=== PATIENT | female | born 1950 | race Caucasian/White ===

== ENCOUNTER 2016-09-26 22:15 | Inpatient (IN) | payer MEDICARE, MEDICAID ==
[2016-09-26] MEDS ORDERED: Sodium Chloride 0.9% 2,000 ML IV ONE ×2 (22:40→23:44)
--- NOTE | 2016-09-26 22:47 | ED Physician Chart ---
Chief Complaint/HPI - Patient Information Date Seen:: 09/26/16 Time Seen:: 22:30 Chief Complaint:: fever History of Present Illness:: Patient had a fever at her fdc facility of 99.3 before transfer by the paramedics. Patient was being transported to [facility] blood asian studies program chair diverted here because of patient's heart rate was about 140. Allergies:: Allergies Allergy/AdvReac Type Severity Reaction Status Date / Time No Known Allergies Allergy Verified 09/26/16 22:38 Historian:: EMS, Medical Records Review:: Transfer documents Reviewed Review of Systems - Review of Systems General/Constitutional: Fever Skin: Skin lesions Head: No headache Eyes: No loss of vision ENT: No earache Neck: No neck pain Cardio Vascular: No chest pain Pulmonary: SOB GI: No nausea, No vomiting Musculoskeletal: No bone or joint pain, No muscle pain Endocrine: No polyuria Psychiatric: Prior psych history Hematopoietic: No bruising Allergic/Immuno: No urticaria Neurological: No syncope Past Medical History - Past Medical History Past Medical History: Dementia, Other (status post cerebrovascular accident; atherosclerotic heart disease; psychosis; anxiety; seizures;) Family History: Other (not available) Social History: Care Facility Surgical History: PEG/GTube Psychiatricy History: Dementia Medication: Reviewed Family Medical History - Family Member Mother History Unknown: Yes Physical Exam - Physical Examination Other Gen/Cons comments:: Chronically ill-appearing; nonverbal; appears in mild distress Head: Atraumatic Eyes: Lids, conjuctiva normal Other Skin comments:: Both feet bandaged ENMT: External ears, nose nl Other ENMT comments:: Edentulous Other Neck comments:: Neck is stiff Respiratory: Clear to Auscultation, No Wheeze/Rhonchi/Rales Cardio Vascular: RRR, No murmur, gallop, rubs Other Cardio Vascular comments:: Heart sounds are faint; there is a regular rapid rhythm GI: No organomegaly, No hernia, Normal BS's, Nondistended, No mass/bruits Other GI comments:: diffuse mild tenderness without guarding : No CVA tenderness Other Extremities comments:: Feet bandaged Labs/Radiology/EKG Results - Lab Results Comments:: Laboratory Results - last 24 hr 09/26/16 09/26/16 09/26/16 22:35 22:35 22:35 WBC 28.4 H* D RBC 5.01 Hgb 14.2 Hct 42.9 MCV 85.6 MCH 28.3 MCHC Differential 33.1 RDW 14.5 Plt Count 250 MPV 11.3 Band Neutrophils % 3 Neutrophils (Manual) 78 Lymphocytes 16 L Monocytes 3 Platelet Estimate ADEQUATE Sodium 145 Potassium 5.2 H Chloride 112 H Carbon Dioxide 23.5 Anion Gap 14.7 BUN 92 H* Creatinine 1.8 H Est GFR ( Amer) 36.1 Est GFR (Non-Af Amer) 29.8 BUN/Creatinine Ratio 51.1 Glucose 168 H Whole Bld Lactic Acid 1.79 Calcium 10.0 Lipase Urine Source Urine Color Urine Clarity Urine pH Ur Specific [place] Urine Protein Urine Glucose (UA) Urine Ketones Urine Blood Urine Nitrate Urine Bilirubin Urine Ictotest Urine Urobilinogen Ur Leukocyte Esterase Urine RBC Urine WBC Ur Epithelial Cells Urine Bacteria Ur Oval Fat Bodies 09/26/16 09/26/16 22:35 23:00 WBC RBC Hgb Hct MCV MCH MCHC Differential RDW Plt Count MPV Band Neutrophils % Neutrophils (Manual) Lymphocytes Monocytes Platelet Estimate Sodium Potassium Chloride Carbon Dioxide Anion Gap BUN Creatinine Est GFR ( Amer) Est GFR (Non-Af Amer) BUN/Creatinine Ratio Glucose Whole Bld Lactic Acid Calcium Lipase 17 Urine Source CATH Urine Color BROWN Urine Clarity CLOUDY H Urine pH 8.5 Ur Specific [place] 1.010 Urine Protein >=300 Urine Glucose (UA) NEGATIVE Urine Ketones NEGATIVE Urine Blood LARGE H Urine Nitrate POSITIVE H Urine Bilirubin MODERATE H Urine Ictotest NEGATIVE Urine Urobilinogen 1.0 Ur Leukocyte Esterase LARGE H Urine RBC 25-50 H Urine WBC >100 H Ur Epithelial Cells FEW Urine Bacteria MANY Ur Oval Fat Bodies Assessment - Assessment General Assessment: The patient is severely dehydrated and needs lots of fluids. She also has a urinary tract infection for which she will receive Rocephin. One half our critical care time ED Septic Shock - . Is Septic Shock (SBP<90, OR Lactate>4 mmol\L) present?: No Reassessment (Disposition) - Reassessment Reassessment Condition:: Improved - Diagnosis Diagnosis:: sepsis; urinary tract infection; dementia; dehydration - Patient Disposition Transport Method:: BLS Spoke to:: Juvenal Montgomery Admitting Medical Physician:: Juvenal Montgomery Condition at Disposition:: Stable, Improved
[2016-09-26 22:56] LABS: HEMATOCRIT 42.9 % (35.0-45.0); HEMOGLOBIN 14.2 gm/dL (11.7-16.1); MEAN CELL VOLUME 85.6 fl (81-100); MEAN CORPUSCULAR HEMOGLOBIN 28.3 pg (27.0-31.0); MEAN CORPUSCULAR HGB CONC 33.1 pg (28.0-36.0); MEAN PLATELET VOLUME 11.3 fl; PLATELET COUNT 250 Th/cmm (150-400); RED BLOOD COUNT 5.01 Mil/cmm (3.80-5.20); RED CELL DISTRIBUTION WIDTH 14.5 % (11.5-20.0)
[2016-09-26 23:00] LABS: WHITE BLOOD COUNT 28.4 Th/cmm (4.8-10.8)
[2016-09-26 23:05] LABS: ANION GAP 14.7 (7.0-16.0); BUN/CREATININE RATIO 51.1; CARBON DIOXIDE 23.5 mEq/L (21.0-31.0); CREATININE - SERUM 1.8 mg/dL (0.6-1.2); POTASSIUM SERUM 5.2 mEq/L (3.5-5.1)
[2016-09-26 23:18] LABS: BAND NEUTROPHILE 3 % (0-10); NEUTROPHILS 78 % (40-80); PLATELET ESTIMATE ADEQUATE (NORMAL); TOTAL CELLS COUNTED 100
[2016-09-26 23:24] LABS: URINE BILIRUBIN MODERATE (NEGATIVE); URINE BLOOD LARGE (NEGATIVE); URINE GLUCOSE (UA) NEGATIVE (NEGATIVE); URINE KETONE NEGATIVE (NEGATIVE); URINE PH 8.5 (4.6 - 8.0); URINE PROTEIN >=300 mg/dL (NEGATIVE)
[2016-09-26 23:27] LABS: URINE COLOR BROWN
[2016-09-26 23:32] LABS: URINE BACTERIA MANY /hpf (NONE SEEN); URINE EPITHELIAL CELLS FEW /lpf (FEW); URINE RBC 25-50 /hpf (0-5); URINE WBC >100 /hpf (0-5)
[2016-09-26] MEDS ORDERED: cefTRIAXone 1 GM in Sodium Chloride 0.9% 50 ML IV ONE (23:46)
[2016-09-27] MEDS ORDERED: Sodium Chloride 0.9% 1,000 ML IV SCH ×2 (02:34→02:54)
[2016-09-27 05:52] LABS: MEAN CELL VOLUME 87.4 fl (81-100); MEAN CORPUSCULAR HEMOGLOBIN 28.4 pg (27.0-31.0); MEAN CORPUSCULAR HGB CONC 32.5 pg (28.0-36.0); MEAN PLATELET VOLUME 11.2 fl; RED BLOOD COUNT 3.91 Mil/cmm (3.80-5.20); RED CELL DISTRIBUTION WIDTH 14.1 % (11.5-20.0)
[2016-09-27 06:09] LABS: ANION GAP 8.9 (7.0-16.0); BUN/CREATININE RATIO 58.3; CALCIUM SERUM 8.5 mg/dL (8.6-10.3); CARBON DIOXIDE 23.2 mEq/L (21.0-31.0); CREATININE - SERUM 1.2 mg/dL (0.6-1.2); POTASSIUM SERUM 4.1 mEq/L (3.5-5.1)
[2016-09-27 06:28] VITALS: BP 110/58
[2016-09-27 07:45] LABS: HEMATOCRIT 34.1 % (35.0-45.0); HEMOGLOBIN 11.1 gm/dL (11.7-16.1); PLATELET COUNT 183 Th/cmm (150-400); WHITE BLOOD COUNT 18.7 Th/cmm (4.8-10.8)
[2016-09-27 08:26] LABS: BAND NEUTROPHILE 2 % (0-10); NEUTROPHILS 85 % (40-80); PLATELET ESTIMATE ADEQUATE (NORMAL); PLATELET MORPHOLOGY NORMAL (NORMAL); TOTAL CELLS COUNTED 100
[2016-09-27] MEDS ORDERED: Aspirin 81mg Chewable Tab GT SCH (09:00)
[2016-09-27] MEDS ORDERED: Non-Formulary Item 1 EA (Amino Acids/Protein Hydrolys [Pro-Stat Sugar Free Liquid] 30 ML) GT SCH (09:00)
--- NOTE | 2016-09-27 09:14 | Diagnostic Imaging Report ---
CHEST X-RAY: AP view INDICATION: Fever COMPARISON: 10/10/2014 FINDINGS: Right mid lung zone subsegmental atelectasis versus scarring is noted. No focal consolidation or effusions. Chronic lung changes are noted. Heart size is normal. Osseous structures are intact. IMPRESSION: Right mid lung zone subsegmental atelectasis versus scarring. No focal consolidation identified.
[2016-09-27] MEDS: Ascorbic Acid 500 mg/5 mL UDC GT SCH (09:59)
[2016-09-27] MEDS: Levetiracetam 500 mg/5mL 5mL UDC GT SCH ×2 (09:59→16:32)
[2016-09-27] MEDS: Multivitamin w/ Minerals Tab GT SCH (10:00)
[2016-09-27] MEDS ORDERED: Probiotic Screen MC PRN (10:37)
[2016-09-27] MEDS: D5-0.45NS 1,000 ML IV SCH (11:51)
--- NOTE | 2016-09-27 13:15 | Diagnostic Imaging Report ---
Renal ultrasound HISTORY: Acute renal failure. COMPARISON: Renal ultrasound performed on 10/10/2014 Technique: Sonography of the kidneys and urinary bladder was performed in multiple planes. FINDINGS: The right kidney measures 12.0 x 5.3 cm demonstrating moderate hydronephrosis. There is a 2.1 cm sonolucent lesion with internal echoes within the mid to upper pole. The left kidney measures 11.0 x 4.9 cm demonstrating mild to moderate hydronephrosis. No focal lesions identified. Internal echoes are seen within the urinary bladder. The urinary bladder wall measures up to 3 mm. IMPRESSION: Moderate right and mild to moderate left hydronephrosis. Please correlate with clinical findings. CT examination of the abdomen and pelvis with provide additional detail and assessment. 2.1 cm sonolucent lesion of the right kidney likely a cyst. Internal echoes may represent hemorrhagic or proteinaceous components. Internal echoes within the urinary bladder which may represent debris or clot. Please correlate with clinical findings.
[2016-09-27] MEDS: Morphine Sulfate 2 mg/mL 1mL Syr IVP PRN (14:30)
--- NOTE | 2016-09-27 15:38 | History & Physical ---
ADMIT DATE: 09/27/2016 CHIEF COMPLAINT: Fever and tachycardia. HISTORY OF PRESENT ILLNESS: This is a 66-year-old female who recently diagnosed with the UTI at nursing facility and started developing high-grade fever in spite of IV antibiotic and also noted to have a very fast heart rate, 130-140s range, so the patient was transferred to Emergency Room. The patient was evaluated in the Emergency Room and diagnosed with the sepsis, complicated UTI and subsequently admitted to the hospital for further treatments. The patient has underlying advanced dementia, unable to communicate well. Most of the history obtained by reviewing the available medical records and discussion with nursing staff. PAST MEDICAL HISTORY: Advanced dementia, seizure disorders, old CVA with late affect, recent history of foot osteomyelitis, dysphagia and tube feeding and psychiatric disorders. PAST SURGICAL HISTORY: G tube placement FAMILY HISTORY: Not available. SOCIAL HISTORY: Lives at nursing facility. No reported prior alcohol, tobacco, street drug use. CURRENT MEDICATIONS: The patient is currently on Tylenol, vitamin C, aspirin, cefepime, Keppra, lorazepam, Namenda, Remeron, probiotic, Zofran and zinc sulfate. ALLERGIES: No known drug allergies. REVIEW OF SYSTEMS: Unobtainable because patient has underlying dementia. PHYSICAL EXAMINATION: VITAL SIGNS: Temperature 97.0, pulse 111, respirations 25, blood pressure ____. GENERAL APPEARANCE: The patient does not seem in acute distress, but seem lethargic. HEART: S1, S2 normal. LUNGS: Clear to auscultation. ABDOMEN: Soft, nontender. No distention. NEUROLOGIC: The patient is alert, but very confused, does not follow commands well. AVAILABLE LABORATORY DATA: WBC 18.7, hemoglobin is 11.1, hematocrit 34.1 and platelet 183. Sodium 150, potassium is 4.1, chloride is 122, BUN 70, creatinine 1.2. Lactic acid upon admission 1.79. Urinalysis is blood large, nitrites positive, bilirubin moderate, leuk esterase large, wbc more than 100. Renal ultrasound, right hydronephrosis noted. Chest x-ray, no acute significant findings noted. ASSESSMENT: 1. Sepsis. 2. Complicated urinary tract infection. 3. Gross hematuria, possibly due to complicated urinary tract infection. 4. Urinary tract infection with right hydronephrosis. 5. Advanced dementia. 6. Old cerebrovascular accident with late effect. 7. Seizure disorder. 8. Psychiatric disorder. 9. Dysphagia and tube feeding. PLAN: The patient admitted to ICU. The patient was given vigorous IV fluid resuscitation. Blood pressure seems okay, still tachycardiac and recent urinalysis and culture send at the longterm, so the patient had multidrug resistant proteus bacteria. The patient was started on meropenem. Case discussed with ID who agreed with the meropenem. Continue IV fluid hydration. Continue tube feeding. We will follow up on the blood cultures, urine cultures, monitor vital signs. IV morphine was given for pain and distress. Discussed patient's condition and plan of care with the nursing staff. The patient's prognosis is guarded. JOB# [id number] COLETTE
--- NOTE | 2016-09-27 16:24 | Consultation ---
Consult Note - Consult Note Service Date: 09/27/16 Referring Physician: Juvenal Montgomery Consult Note: PHYSICIAN Consultation Note: Date of Admission: 09/27/16 Purpose of Consultation: Chief Complaint: Patient MARII BARNHART was admitted to location Intensive Care Unit with SEPSIS. History of Present Illness: 66 Y FEMALE was sent to the ER for febrile episode at the SNF. She was also diagnosed UTI and urine c/s grew ESBL E coli. On initial evlauation her temperature was 101 degree F and WBC count was 28, 400. Because of tachycardia she was admitted to the ICU. SHe was started in cefepime, which was changed to meropenem. US abdomen revealed left sided hydronephrosis. ID consult was called for antibiotic management. Besides this she has developed both foot wounds with surrounding erythema. Past Medical History: Dementia, UTI, CVA, psychosis. Allergies Allergy/AdvReac Type Severity Reaction Status Date / Time No Known Allergies Allergy Verified 09/26/16 22:38 Vital Signs Temp 98.3 F 09/27/16 16:00 Pulse 113 09/27/16 16:00 Resp 19 09/27/16 16:00 BP 102/44 09/27/16 16:00 Pulse Ox 97 09/27/16 16:00 Intake & Output 09/26/16 09/27/16 09/27/16 18:59 06:59 18:59 Intake Total 20 Balance 20 Weight (lbs) 61.099 kg Intake: Other 20 Other: # Voids 2 # Bowel Movements 0 Stool Characteristics Hard [place] Laboratory Results - last 24 hr 09/27/16 09/27/16 05:27 05:27 WBC 18.7 H D RBC 3.91 Hgb 11.1 L D Hct 34.1 L D MCV 87.4 MCH 28.4 MCHC Differential 32.5 RDW 14.1 Plt Count 183 D MPV 11.2 Band Neutrophils % 2 Neutrophils (Manual) 85 H Lymphocytes 8 L Monocytes 5 Platelet Estimate ADEQUATE Platelet Morphology NORMAL RBC Morph Micro Appear NORMAL Sodium 150 H Potassium 4.1 Chloride 122 H Carbon Dioxide 23.2 Anion Gap 8.9 BUN 70 H Creatinine 1.2 Est GFR ( Amer) 57.6 Est GFR (Non-Af Amer) 47.6 BUN/Creatinine Ratio 58.3 Glucose 125 H Calcium 8.5 L Home Medication Medication Instructions Recorded Type Ascorbic Acid [Vitamin C] 500 mg GT DAILY 10/09/14 History Aspirin EC [Ecotrin] 81 mg GT DAILY 10/09/14 History Amino Acids/Protein Hydrolys 30 ml GT DAILY 09/27/16 History [Pro-Stat Sugar Free 887 ml] Levetiracetam [Keppra] 500 mg GT BID 09/27/16 History Lorazepam [Ativan] 1 mg GT BID PRN 09/27/16 History Memantine HCl [Namenda] 5 mg GT DAILY 09/27/16 History Mirtazapine 45 mg GT HS 09/27/16 History Multivit &Minerals/Ferrous Fum 5 ml PO DAILY 09/27/16 History [Multivitamin Liquid] Zinc Sulfate [Zinc Sulfate 111 1 tab GT DAILY 09/27/16 History mg-50 mg] Current Medications Generic Name Dose Route Start Last Admin Trade Name Angelitoq PRN Reason Stop Dose Admin Acetaminophen 500 mg 09/27/16 02:39 09/27/16 13:45 Tylenol 650mg/20.3ml Suspension GT 11/26/16 02:38 500 mg Q4H PRN Administration Fever >101 Ascorbic Acid 500 mg 09/27/16 09:00 09/27/16 09:59 Vitamin C GT 11/26/16 08:59 500 mg DAILY MIGUE Administration Dextrose/Sodium Chloride 1,000 mls @ 70 mls/hr 09/27/16 10:12 09/27/16 11:51 D5-0.45ns IV 11/26/16 10:11 70 mls/hr .[id number] MIGUE Administration Meropenem 1 gm/ Sodium 100 mls @ 100 mls/hr 09/27/16 15:00 Chloride IV 11/26/16 14:59 Q12H MIGUE Lactobacillus Rhamnosus 1 each 09/28/16 09:00 Culturelle PO 11/27/16 08:59 DAILY MIGUE Levetiracetam 500 mg 09/27/16 09:00 09/27/16 09:59 Keppra GT 11/26/16 08:59 500 mg BID MIGUE Administration Lorazepam 1 mg 09/27/16 02:47 Ativan GT 11/26/16 02:46 BID PRN Anxiety Protocol Memantine 5 mg 09/27/16 09:00 09/27/16 10:00 Namenda GT 11/26/16 08:59 5 mg DAILY MIGUE Administration Mirtazapine 45 mg 09/27/16 21:00 Remeron GT 11/26/16 20:59 HS MIGUE Miscellaneous 1 ea 09/27/16 10:34 Clinical Monitoring 11/26/16 10:33 PRN PRN MERREM RENAL DOSED Miscellaneous 1 ea 09/27/16 10:37 Probiotic Screen 11/26/16 10:36 PRN PRN PROTOCOL Morphine Sulfate 2 mg 09/27/16 14:10 09/27/16 14:30 Morphine IVP 11/26/16 14:09 2 mg Q4HR PRN Administration Severe Pain Ondansetron HCl 4 mg 09/27/16 02:38 Zofran IV 11/26/16 02:44 Q6H PRN Nausea / Vomiting Zinc Sulfate 1 mg 09/27/16 09:00 09/27/16 10:01 Zinc Sulfate GT 11/26/16 08:59 Not Given DAILY MIGUE Review of Systems: A 12 point ROS was reviewed with the pertinent positive and negatives noted in the HPI. Social History Smoking Status Smoker, status unknown Drug Use No Alcohol Use No Physical Exam: General: Comnfortable, no t in distress. HEENT: Head is normocephalic, atraumatic. Oral cavity moist and pink tongue. Eyes no pallor, no icterus. Neck: Supple, no JVD. Cardio: S1 and S2 WNL, no murmur, no gallop. Respiratory: CTAP Abdominal: soft NT ND BS present. Genital/Urinary: Hassan. Extremities: NCCE. left foot deep wound with surrounding erythema. inferomedially of the left fore foot just proximal to the big toe. Right foot multiple ulcers. Neurological: Alert. Assessment: 1. Sepsis. 2. Complicated UTI. ESBL Pos E coli infection. 3. Leukocytosis. 4. Dementia 5. Left sided hydronephrosis. 6. bilateral foot ulcers worse in left. r/o osteomyelitis. Plan: Will continue merpenem. Wound cultures 3 phase bone scan. esr crp Signed, Mehul Diane M.D. [phone]
[2016-09-27] MEDS: Meropenem 1 GM in Sodium Chloride 0.9% 100 ML IV SCH (16:33)
[2016-09-28] MEDS: Meropenem 1 GM in Sodium Chloride 0.9% 100 ML IV SCH ×2 (03:30→15:51)
[2016-09-28] MEDS: D5-0.45NS 1,000 ML IV SCH ×2 (04:45→21:11)
[2016-09-28 07:15] LABS: URINE BILIRUBIN NEGATIVE (NEGATIVE); URINE BLOOD LARGE (NEGATIVE); URINE GLUCOSE (UA) NEGATIVE (NEGATIVE); URINE KETONE NEGATIVE (NEGATIVE); URINE PROTEIN 100 mg/dL (NEGATIVE); URINE UROBILINOGEN 0.2 E.U./dL (0.2 - 1.0)
[2016-09-28 08:50] LABS: URINE COLOR YELLOW; URINE EPITHELIAL CELLS FEW /lpf (FEW); URINE RBC 50-100 /hpf (0-5)
[2016-09-28 08:51] LABS: URINE BACTERIA FEW /hpf (NONE SEEN)
[2016-09-28 08:52] LABS: URINE WBC 25-50 /hpf (0-5)
[2016-09-28] MEDS: Levetiracetam 500 mg/5mL 5mL UDC GT SCH ×2 (09:48→17:25)
[2016-09-28] MEDS: Ascorbic Acid 500 mg/5 mL UDC GT SCH (09:49)
[2016-09-28] MEDS: Multivitamin w/ Minerals Tab GT SCH (09:51)
[2016-09-28] MEDS: Lactobacillus Rhamnosus 10 Billion CFU Capsule PO SCH (09:52)
[2016-09-28] MEDS: Venelex 60gm Tube TP SCH (09:52)
--- NOTE | 2016-09-28 15:03 | General Progress Note ---
Subjective - Review of Systems Service Date: 09/28/16 Subjective: Patient seems more awake afebrile hematuria better Objective - Results Result Diagrams: 09/27/16 05:27 09/27/16 05:27 Recent Labs: Laboratory Last Values WBC 18.7 Th/cmm (4.8-10.8) H D 09/27/16 05:27 RBC 3.91 Mil/cmm (3.80-5.20) 09/27/16 05:27 Hgb 11.1 gm/dL (11.7-16.1) L D 09/27/16 05:27 Hct 34.1 % (35.0-45.0) L D 09/27/16 05:27 MCV 87.4 fl (81-100) 09/27/16 05:27 MCH 28.4 pg (27.0-31.0) 09/27/16 05:27 MCHC Differential 32.5 pg (28.0-36.0) 09/27/16 05:27 RDW 14.1 % (11.5-20.0) 09/27/16 05:27 Plt Count 183 Th/cmm (150-400) D 09/27/16 05:27 MPV 11.2 fl 09/27/16 05:27 Band Neutrophils % 2 % (0-10) 09/27/16 05:27 Neutrophils (Manual) 85 % (40-80) H 09/27/16 05:27 Lymphocytes 8 % (20-50) L 09/27/16 05:27 Monocytes 5 % (2-10) 09/27/16 05:27 Platelet Estimate ADEQUATE (NORMAL) 09/27/16 05:27 Platelet Morphology NORMAL (NORMAL) 09/27/16 05:27 RBC Morph Micro Appear NORMAL (NORMAL) 09/27/16 05:27 Sodium 150 mEq/L (136-145) H 09/27/16 05:27 Potassium 4.1 mEq/L (3.5-5.1) 09/27/16 05:27 Chloride 122 mEq/L (98-107) H 09/27/16 05:27 Carbon Dioxide 23.2 mEq/L (21.0-31.0) 09/27/16 05:27 Anion Gap 8.9 (7.0-16.0) 09/27/16 05:27 BUN 70 mg/dL (7-25) H 09/27/16 05:27 Creatinine 1.2 mg/dL (0.6-1.2) 09/27/16 05:27 Est GFR ( Amer) 57.6 ml/min (>90) 09/27/16 05:27 Est GFR (Non-Af Amer) 47.6 ml/min 09/27/16 05:27 BUN/Creatinine Ratio 58.3 09/27/16 05:27 Glucose 125 mg/dL (70-105) H 09/27/16 05:27 Whole Bld Lactic Acid 1.79 mmol/L (0.60-1.99) 09/26/16 22:35 Calcium 8.5 mg/dL (8.6-10.3) L 09/27/16 05:27 C-Reactive Protein 11.8 mg/dL (0.0-0.9) H 09/28/16 04:50 Lipase 17 U/L (11-82) 09/26/16 22:35 Urine Source [place] 09/28/16 05:30 Urine Color YELLOW 09/28/16 05:30 Urine Clarity SLIGHT CLOUDY (CLEAR) 09/28/16 05:30 Urine pH 6.0 (4.6 - 8.0) 09/28/16 05:30 Ur Specific [place] 1.020 (1.005-1.030) 09/28/16 05:30 Urine Protein 100 mg/dL (NEGATIVE) H 09/28/16 05:30 Urine Glucose (UA) NEGATIVE mg/dL (NEGATIVE) 09/28/16 05:30 Urine Ketones NEGATIVE mg/dL (NEGATIVE) 09/28/16 05:30 Urine Blood LARGE (NEGATIVE) H 09/28/16 05:30 Urine Nitrate NEGATIVE (NEGATIVE) 09/28/16 05:30 Urine Bilirubin NEGATIVE (NEGATIVE) 09/28/16 05:30 Urine Ictotest NEGATIVE (NEGATIVE) 09/26/16 23:00 Urine Urobilinogen 0.2 E.U./dL (0.2 - 1.0) 09/28/16 05:30 Ur Leukocyte Esterase MODERATE (NEGATIVE) H 09/28/16 05:30 Urine RBC 50-100 /hpf (0-5) H 09/28/16 05:30 Urine WBC 25-50 /hpf (0-5) H 09/28/16 05:30 Ur Epithelial Cells FEW /lpf (FEW) 09/28/16 05:30 Urine Bacteria FEW /hpf (NONE SEEN) 09/28/16 05:30 Ur Oval Fat Bodies /hpf (NONE SEEN) 09/26/16 23:00 - Physical Exam Vitals and I&O: Vital Signs Temp 97 F 09/28/16 12:00 Pulse 90 09/28/16 12:00 Resp 15 09/28/16 12:00 BP 105/75 09/28/16 12:00 Pulse Ox 99 09/28/16 12:00 Intake & Output 09/27/16 09/28/16 09/28/16 18:59 06:59 18:59 Intake Total 365 1680 Output Total 1050 800 Balance -685 880 Weight (lbs) 62.369 kg 61.054 kg Intake: Intake, IV Amount 100 1100 D5-0.45NS 1,000 ml @ 70 1000 mls/hr IV .[id number] [facility] Rx #:[id number] Meropenem 1 gm In Sodium 100 100 Chloride 0.9% 100 ml @ 100 mls/hr IV Q12H [facility] Rx #:[id number] Tube Feeding 165 490 Other 100 90 Output: Urine 1050 800 Other: # Bowel Movements 1 0 Stool Characteristics Hard [place] Active Medications: Current Medications Acetaminophen (Tylenol 650mg/20.3ml Suspension) 500 mg GT Q4H PRN PRN Reason: Fever >101 Stop: 11/26/16 02:38 Last Admin: 09/27/16 13:45 Dose: 500 mg Ascorbic Acid (Vitamin C) 500 mg GT DAILY [facility] Stop: 11/26/16 08:59 Last Admin: 09/28/16 09:49 Dose: 500 mg Dextrose/Sodium Chloride (D5-0.45ns) 1,000 mls @ 70 mls/hr IV .[id number] [facility] Stop: 11/26/16 10:11 Last Admin: 09/28/16 04:45 Dose: 70 mls/hr Meropenem 1 gm/ Sodium (Chloride) 100 mls @ 100 mls/hr IV Q12H MIGUE Stop: 11/26/16 14:59 Last Infusion: 09/28/16 04:30 Dose: Infused Lactobacillus Rhamnosus (Culturelle) 1 each PO DAILY [facility] Stop: 11/27/16 08:59 Last Admin: 09/28/16 09:52 Dose: 1 each Levetiracetam (Keppra) 500 mg GT BID MIGUE Stop: 11/26/16 08:59 Last Admin: 09/28/16 09:48 Dose: 500 mg Lorazepam (Ativan) 1 mg GT BID PRN; Protocol PRN Reason: Anxiety Stop: 11/26/16 02:46 Memantine (Namenda) 5 mg GT DAILY MIGUE Stop: 11/26/16 08:59 Last Admin: 09/28/16 09:50 Dose: 5 mg Mirtazapine (Remeron) 45 mg GT HS MIGUE Stop: 11/26/16 20:59 Last Admin: 09/27/16 20:40 Dose: 45 mg Miscellaneous (Clinical Monitoring) 1 ea MC PRN PRN PRN Reason: MERREM RENAL DOSED Stop: 11/26/16 10:33 Miscellaneous (Probiotic Screen) 1 ea MC PRN PRN PRN Reason: PROTOCOL Stop: 11/26/16 10:36 Morphine Sulfate (Morphine) 2 mg IVP Q4HR PRN PRN Reason: Severe Pain Stop: 11/26/16 14:09 Last Admin: 09/27/16 14:30 Dose: 2 mg Ondansetron HCl (Zofran) 4 mg IV Q6H PRN PRN Reason: Nausea / Vomiting Stop: 11/26/16 02:44 Zinc Sulfate (Zinc Sulfate) 220 mg GT DAILY MIGUE Stop: 11/26/16 08:59 Cardiovascular: Regular rate Lungs: Clear to auscultation Abdomen: Soft, no Tender - Procedures Procedures: Procedures Procedure Code Date DRAINAGE OF SKIN ABSCESS 09527 10/09/14 OTHER SKIN & SUBQ I D 86.04 10/09/14 Assessment/Plan - Problem List Patient Problems: All Active Problems Cellulitis, gluteal, right (Acute) L03.317 Combative behavior (Acute 02/10/15) R46.89 - Assessment Assessment: Sepsis Complicated UTI with right hydronephrosis Hematuria better 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 dementia Dysphagia - Plan Plan: Continue Meropenem Monitor hematuria Monitor vitals SCOOTER transfer plan of care discussed with nursing staff Nutritional Asmnt/Malnutr-PDOC - Dietary Evaluation Malnutrition Findings (Please click <Entered> for more info): Nutritional Asmnt/Malnutrition Start: 09/27/16 15: 19 Text: Status: Complete Freq: Document 09/27/16 19:47 JDANH (Rec: 09/27/16 19:58 [facility] [id number]) Nutritional Asmnt/Malnutrition Patient General Information Nutritional Screening Consult Diagnosis Sepsis, complicated UTI Pertinent Medical Hx/Surgical Hx Advanced dementia, seizure disorders, old CVA with late affect, recent hx foot osteomyelitis, dysphagia, tube feeding, psychiatric disorders Subjective Information Nutrition Consult for caleb scale 10 and pressure ulcers received and completed. Pt is a 66-year-old female from [facility] admitted with chief complaint of fever and tachycardia. Tube feeding started today at 20 ml/hr and slowly increasing to goal rate . Pt is tolerating tube feeding well with no residuals . Current Diet Order/ Nutrition Support Fibersource HN at 55 ml/hr continuous = 1584kcals, 71gm protein, 1069ml H2O Patient / S.O Can't verbalize diet edu Pertinent Medications Vitamin C, D5-0.45 ns, Culturelle, Meropenem, Morphine, Zofran, Zinc Sulfate Pertinent Labs (09/27) Na 150H, BUN 70H ( improved) Nutritional Hx/Data Height 1.63 m Height (Calculated Centimeters) 162.6 Current Weight (lbs) 62.369 kg Weight (Calculated Kilograms) 62.4 Weight (Calculated Grams) 45962.0 [place] Body Weight 120 % [place] Body Weight 115 Weight Status Approriate GI Symptoms GI Symptoms None Difficult in: Swallowing Food Allergies No Skin Integrity/Comment: Caleb 8. Right foot, right and left 5th metatarsal head pressure ulcers. Estimated Nutritional Goals BEE in Kcals: Using Current wt Calories/Kcals/Kg Based on current body wt 62.5 kg with consideration of sepsis Kcals Calculated 1788-6113 kcals/day (30-35 kcals/kg) Protein: Using Current wt Protein g/kg: Based on current body wt 62.5 kg with consideration of sepsis Protein Calculated 75-94 gm/day (1.2-1.5 gm/kg) Fluid: ml 1875 ml/kg (30 ml/kg) or per MD/DO Nutritional Problem 1. Problem Problem Increased energy needs related to Etiology increased metabolic demands with physiological stress as evidenced by Signs/Symptoms: dx sepsis. Malnutrition Alert Is there a minimum of two criteria No selected? Query Text:Check all the applicable criteria. A minimum of two criteria are recommended for diagnosis of either severe or non-severe malnutrition. Malnutrition Related to Morbid Obesity Malnutrition related to morbid obesity No Intervention/Recommendation Recommendations by RD Increase Calorie Intake Comments 1. Recommend increase Fibersource HN to goal rate of 65 ml/hr to better meet estimated nutritional needs. Tube feeding to provide 1872 kcals, 84 gm protein, and 1264 ml free water per day. 2. Consider discontinuing zinc sulfate supplementation as tube feeding is adequate to meet mineral needs. Expected Outcomes/Goals Expected Outcomes/Goals Provide pt with 100% of estimated nutritional needs for conservation of lean muscle mass and promote wound healing. Physician Parameters for PEM Normal Weight % 90% - 110% (Normal) Body Mass Index (BMI) 19 - 24 (Normal)
[2016-09-28 15:22] LABS: ANION GAP 10.2 (7.0-16.0); BUN - UREA NITROGEN 40 mg/dL (7-25); CALCIUM SERUM 8.6 mg/dL (8.6-10.3); CARBON DIOXIDE 24.8 mEq/L (21.0-31.0); CHLORIDE 118 mEq/L (98-107); CREATININE - SERUM 0.8 mg/dL (0.6-1.2); GLUCOSE 142 mg/dL (70-105); SODIUM SERUM 149 mEq/L (136-145)
--- NOTE | 2016-09-28 22:35 | Admit Criteria Form ---
Admit Criteria Forms - Admit Criteria Diagnosis: URINARY COMPLICATIONS Clinical Indications for Inpatient Care (Place 'X' for any and all applicable criteria): Ongoing inpatient care may be indicated for urinary complications with ANY ONE of the following: [X ]I. Urinary tract infection requiring inpatient care as indicated by ANY ONE of the following(8)(19)(20): [ ]a) Severe symptoms (eg, high fever, severe pain) [X ]b) Vomiting or dehydration requiring ongoing inpatient care [X ]c) IV antibiotic needs that cannot be managed at lower level of care [X ]d) Hemodynamic instability [ ]e) Obstruction of collecting system by stone or tumor [ ]II. Urinary retention requiring drainage or surgery (3)(4)(5)(17)(18) [ ]III. Renal failure (Use Renal Failure Criteria for further information.) [ ]IV. Oliguria(30) [ ]V. Post obstructive diuresis requiring close monitoring of urine output and intravenous compensation for excessive fluid losses(33) Extended stay beyond goal length of stay for primary condition may be needed until ALL of the following are present(3)(4)(5)(8): [ ]a) Renal function (creatinine) at baseline, or daily decreases in creatinine consistent with renal function return [ ]b) Voiding adequately or with urinary catheter or percutaneous suprapubic tube and management regimen in place that is performable at lower level of care. [ ]c) Urine output adequate [ ]d) Fever absent or resolving [ ]e) Infection absent or treatable at next level of care The original [employer] content created by [employer] has been revised. The portions of the content which have been revised are identified through the use of italic text or in bold, and [facility] has neither reviewed nor approved the modified material. All other unmodified content is copyright [facility] [employer] Please see references footnoted in the original [facility] [employer] edition 2016 Admit Criteria Met?: Yes
[2016-09-28] MEDS: Morphine Sulfate 2 mg/mL 1mL Syr IVP PRN (23:37)
[2016-09-29] MEDS: Meropenem 1 GM in Sodium Chloride 0.9% 100 ML IV SCH ×2 (02:07→16:30)
[2016-09-29] MEDS: Morphine Sulfate 2 mg/mL 1mL Syr IVP PRN (05:18)
[2016-09-29 05:42] LABS: % BASOPHILS 0.3 % (0.0-2.0); % EOSINOPHILS 4.7 % (0.0-5.0); % LYMPHOCYTES 17.1 % (20.0-50.0); % NEUTROPHILS 68.9 % (40.0-80.0); MEAN CORPUSCULAR HEMOGLOBIN 28.5 pg (27.0-31.0); MEAN CORPUSCULAR HGB CONC 32.8 pg (28.0-36.0); MEAN PLATELET VOLUME 10.5 fl; NEUTROPHILE ABSOLUTE 7.2 Th/cmm (1.8-8.0); PLATELET COUNT 154 Th/cmm (150-400); RED BLOOD COUNT 3.52 Mil/cmm (3.80-5.20)
[2016-09-29 05:54] LABS: ANION GAP 7.4 (7.0-16.0); BUN - UREA NITROGEN 24 mg/dL (7-25); CALCIUM SERUM 8.7 mg/dL (8.6-10.3); CARBON DIOXIDE 26.6 mEq/L (21.0-31.0); CHLORIDE 117 mEq/L (98-107); CREATININE - SERUM 0.6 mg/dL (0.6-1.2); GLUCOSE 99 mg/dL (70-105); SODIUM SERUM 147 mEq/L (136-145)
[2016-09-29 06:18] LABS: HEMATOCRIT 30.6 % (35.0-45.0); WHITE BLOOD COUNT 10.4 Th/cmm (4.8-10.8)
[2016-09-29] MEDS: Levetiracetam 500 mg/5mL 5mL UDC GT SCH ×2 (08:46→16:31)
[2016-09-29] MEDS: Multivitamin w/ Minerals Tab GT SCH (08:47)
[2016-09-29] MEDS: Ascorbic Acid 500 mg/5 mL UDC GT SCH (08:47)
[2016-09-29] MEDS: Venelex 60gm Tube TP SCH (08:47)
[2016-09-29] MEDS: Lactobacillus Rhamnosus 10 Billion CFU Capsule PO SCH (08:47)
[2016-09-29] MEDS: D5-0.45NS 1,000 ML IV SCH (08:48)
--- NOTE | 2016-09-29 13:47 | General Progress Note ---
Subjective - Review of Systems Service Date: 09/29/16 Subjective: Patient doing better WBC better afebrile Objective - Results Result Diagrams: 09/29/16 05:00 09/29/16 05:00 Recent Labs: Laboratory Last Values WBC 10.4 Th/cmm (4.8-10.8) D 09/29/16 05:00 RBC 3.52 Mil/cmm (3.80-5.20) L 09/29/16 05:00 Hgb 10.0 gm/dL (11.7-16.1) L 09/29/16 05:00 Hct 30.6 % (35.0-45.0) L D 09/29/16 05:00 MCV 87.0 fl (81-100) 09/29/16 05:00 MCH 28.5 pg (27.0-31.0) 09/29/16 05:00 MCHC Differential 32.8 pg (28.0-36.0) 09/29/16 05:00 RDW 14.0 % (11.5-20.0) 09/29/16 05:00 Plt Count 154 Th/cmm (150-400) 09/29/16 05:00 MPV 10.5 fl 09/29/16 05:00 Neutrophils % 68.9 % (40.0-80.0) 09/29/16 05:00 Band Neutrophils % 2 % (0-10) 09/27/16 05:27 Lymphocytes % 17.1 % (20.0-50.0) L 09/29/16 05:00 Monocytes % 9.0 % (2.0-10.0) 09/29/16 05:00 Eosinophils % 4.7 % (0.0-5.0) 09/29/16 05:00 Basophils % 0.3 % (0.0-2.0) 09/29/16 05:00 Neutrophils (Manual) 85 % (40-80) H 09/27/16 05:27 Lymphocytes 8 % (20-50) L 09/27/16 05:27 Monocytes 5 % (2-10) 09/27/16 05:27 Platelet Estimate ADEQUATE (NORMAL) 09/27/16 05:27 Platelet Morphology NORMAL (NORMAL) 09/27/16 05:27 RBC Morph Micro Appear NORMAL (NORMAL) 09/27/16 05:27 Sodium 147 mEq/L (136-145) H 09/29/16 05:00 Potassium 4.0 mEq/L (3.5-5.1) 09/29/16 05:00 Chloride 117 mEq/L (98-107) H 09/29/16 05:00 Carbon Dioxide 26.6 mEq/L (21.0-31.0) 09/29/16 05:00 Anion Gap 7.4 (7.0-16.0) 09/29/16 05:00 BUN 24 mg/dL (7-25) 09/29/16 05:00 Creatinine 0.6 mg/dL (0.6-1.2) 09/29/16 05:00 Est GFR ( Amer) > 60.0 ml/min (>90) 09/29/16 05:00 Est GFR (Non-Af Amer) > 60.0 ml/min 09/29/16 05:00 BUN/Creatinine Ratio 40.0 09/29/16 05:00 Glucose 99 mg/dL (70-105) 09/29/16 05:00 Whole Bld Lactic Acid 1.79 mmol/L (0.60-1.99) 09/26/16 22:35 Calcium 8.7 mg/dL (8.6-10.3) 09/29/16 05:00 C-Reactive Protein 11.8 mg/dL (0.0-0.9) H 09/28/16 04:50 Lipase 17 U/L (11-82) 09/26/16 22:35 Urine Source AMAYA PORT 09/28/16 05:30 Urine Color YELLOW 09/28/16 05:30 Urine Clarity SLIGHT CLOUDY (CLEAR) 09/28/16 05:30 Urine pH 6.0 (4.6 - 8.0) 09/28/16 05:30 Ur Specific [place] 1.020 (1.005-1.030) 09/28/16 05:30 Urine Protein 100 mg/dL (NEGATIVE) H 09/28/16 05:30 Urine Glucose (UA) NEGATIVE mg/dL (NEGATIVE) 09/28/16 05:30 Urine Ketones NEGATIVE mg/dL (NEGATIVE) 09/28/16 05:30 Urine Blood LARGE (NEGATIVE) H 09/28/16 05:30 Urine Nitrate NEGATIVE (NEGATIVE) 09/28/16 05:30 Urine Bilirubin NEGATIVE (NEGATIVE) 09/28/16 05:30 Urine Ictotest NEGATIVE (NEGATIVE) 09/26/16 23:00 Urine Urobilinogen 0.2 E.U./dL (0.2 - 1.0) 09/28/16 05:30 Ur Leukocyte Esterase MODERATE (NEGATIVE) H 09/28/16 05:30 Urine RBC 50-100 /hpf (0-5) H 09/28/16 05:30 Urine WBC 25-50 /hpf (0-5) H 09/28/16 05:30 Ur Epithelial Cells FEW /lpf (FEW) 09/28/16 05:30 Urine Bacteria FEW /hpf (NONE SEEN) 09/28/16 05:30 Ur Oval Fat Bodies /hpf (NONE SEEN) 09/26/16 23:00 - Physical Exam Vitals and I&O: Vital Signs Temp 97.3 F 09/29/16 11:56 Pulse 76 09/29/16 11:56 Resp 18 09/29/16 11:56 BP 112/52 09/29/16 11:56 Pulse Ox 100 09/29/16 11:56 Intake & Output 09/28/16 09/29/16 09/29/16 18:59 06:59 18:59 Intake Total 100 1225 813.167 Balance 100 1225 813.167 Weight (lbs) 61.371 kg Intake: Intake, IV Amount 100 1000 813.167 D5-0.45NS 1,000 ml @ 70 1000 813.167 mls/hr IV .[id number] [facility] Rx #:[id number] Meropenem 1 gm In Sodium 100 Chloride 0.9% 100 ml @ 100 mls/hr IV Q12H [facility] Rx #:[id number] Tube Feeding 225 Other: # Voids 2 # Bowel Movements 1 Active Medications: Current Medications Acetaminophen (Tylenol 650mg/20.3ml Suspension) 500 mg GT Q4H PRN PRN Reason: Fever >101 Stop: 11/26/16 02:38 Last Admin: 09/27/16 13:45 Dose: 500 mg Ascorbic Acid (Vitamin C) 500 mg GT DAILY [facility] Stop: 11/26/16 08:59 Last Admin: 09/29/16 08:47 Dose: 500 mg Dextrose/Sodium Chloride (D5-0.45ns) 1,000 mls @ 70 mls/hr IV .[id number] [facility] Stop: 11/26/16 10:11 Last Admin: 09/29/16 08:48 Dose: 70 mls/hr Meropenem 1 gm/ Sodium (Chloride) 100 mls @ 100 mls/hr IV Q12H [facility] Stop: 11/26/16 14:59 Last Admin: 09/29/16 02:07 Dose: 100 mls/hr Lactobacillus Rhamnosus (Culturelle) 1 each PO DAILY [facility] Stop: 11/27/16 08:59 Last Admin: 09/29/16 08:47 Dose: 1 each Levetiracetam (Keppra) 500 mg GT BID [facility] Stop: 11/26/16 08:59 Last Admin: 09/29/16 08:46 Dose: 500 mg Lorazepam (Ativan) 1 mg GT BID PRN; Protocol PRN Reason: Anxiety Stop: 11/26/16 02:46 Memantine (Namenda) 5 mg GT DAILY [facility] Stop: 11/26/16 08:59 Last Admin: 09/29/16 08:47 Dose: 5 mg Mirtazapine (Remeron) 45 mg GT HS [facility] Stop: 11/26/16 20:59 Last Admin: 09/28/16 21:06 Dose: 45 mg Miscellaneous (Clinical Monitoring) 1 ea MC PRN PRN PRN Reason: MERREM RENAL DOSED Stop: 11/26/16 10:33 Miscellaneous (Probiotic Screen) 1 ea MC PRN PRN PRN Reason: PROTOCOL Stop: 11/26/16 10:36 Morphine Sulfate (Morphine) 2 mg IVP Q4HR PRN PRN Reason: Severe Pain Stop: 11/26/16 14:09 Last Admin: 09/29/16 05:18 Dose: 2 mg Ondansetron HCl (Zofran) 4 mg IV Q6H PRN PRN Reason: Nausea / Vomiting Stop: 11/26/16 02:44 Zinc Sulfate (Zinc Sulfate) 220 mg GT DAILY [facility] Stop: 11/26/16 08:59 Last Admin: 09/29/16 08:47 Dose: 220 mg Cardiovascular: Regular rate Lungs: Clear to auscultation Abdomen: Soft, no Tender - Procedures Procedures: Procedures Procedure Code Date DRAINAGE OF SKIN ABSCESS 61807 10/09/14 OTHER SKIN & SUBQ I D 86.04 08/16/15 Assessment/Plan - Problem List Patient Problems: All Active Problems Cellulitis, gluteal, right (Acute) L03.317 Combative behavior (Acute 02/10/15) R46.89 - Assessment Assessment: Sepsis improving Complicated UTI with right hydronephrosis Hematuria better 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 dementia Dysphagia - Plan Plan: Continue Meropenem Monitor hematuria Monitor vitals Tube feeding plan of care discussed with nursing staff Nutritional Asmnt/Malnutr-PDOC - Dietary Evaluation Malnutrition Findings (Please click <Entered> for more info): Nutritional Asmnt/Malnutrition Start: 09/27/16 15: 19 Text: Status: Complete Freq: Document 09/27/16 19:47 JDAIA (Rec: 09/27/16 19:58 [facility] [id number]) Nutritional Asmnt/Malnutrition Patient General Information Nutritional Screening Consult Diagnosis Sepsis, complicated UTI Pertinent Medical Hx/Surgical Hx Advanced dementia, seizure disorders, old CVA with late affect, recent hx foot osteomyelitis, dysphagia, tube feeding, psychiatric disorders Subjective Information Nutrition Consult for caleb scale 10 and pressure ulcers received and completed. Pt is a 66-year-old female from [facility] admitted with chief complaint of fever and tachycardia. Tube feeding started today at 20 ml/hr and slowly increasing to goal rate . Pt is tolerating tube feeding well with no residuals . Current Diet Order/ Nutrition Support Fibersource HN at 55 ml/hr continuous = 1584kcals, 71gm protein, 1069ml H2O Patient / S.O Can't verbalize diet edu Pertinent Medications Vitamin C, D5-0.45 ns, Culturelle, Meropenem, Morphine, Zofran, Zinc Sulfate Pertinent Labs (09/27) Na 150H, BUN 70H ( improved) Nutritional Hx/Data Height 1.63 m Height (Calculated Centimeters) 162.6 Current Weight (lbs) 62.369 kg Weight (Calculated Kilograms) 62.4 Weight (Calculated Grams) 80715.0 [place] Body Weight 120 % [place] Body Weight 115 Weight Status Approriate GI Symptoms GI Symptoms None Difficult in: Swallowing Food Allergies No Skin Integrity/Comment: Caleb 8. Right foot, right and left 5th metatarsal head pressure ulcers. Estimated Nutritional Goals BEE in Kcals: Using Current wt Calories/Kcals/Kg Based on current body wt 62.5 kg with consideration of sepsis Kcals Calculated 8357-6759 kcals/day (30-35 kcals/kg) Protein: Using Current wt Protein g/kg: Based on current body wt 62.5 kg with consideration of sepsis Protein Calculated 75-94 gm/day (1.2-1.5 gm/kg) Fluid: ml 1875 ml/kg (30 ml/kg) or per MD/DO Nutritional Problem 1. Problem Problem Increased energy needs related to Etiology increased metabolic demands with physiological stress as evidenced by Signs/Symptoms: dx sepsis. Malnutrition Alert Is there a minimum of two criteria No selected? Query Text:Check all the applicable criteria. A minimum of two criteria are recommended for diagnosis of either severe or non-severe malnutrition. Malnutrition Related to Morbid Obesity Malnutrition related to morbid obesity No Intervention/Recommendation Recommendations by RD Increase Calorie Intake Comments 1. Recommend increase Fibersource HN to goal rate of 65 ml/hr to better meet estimated nutritional needs. Tube feeding to provide 1872 kcals, 84 gm protein, and 1264 ml free water per day. 2. Consider discontinuing zinc sulfate supplementation as tube feeding is adequate to meet mineral needs. Expected Outcomes/Goals Expected Outcomes/Goals Provide pt with 100% of estimated nutritional needs for conservation of lean muscle mass and promote wound healing. Physician Parameters for PEM Normal Weight % 90% - 110% (Normal) Body Mass Index (BMI) 19 - 24 (Normal)
--- NOTE | 2016-09-29 23:58 | Infectious Disease Prog Note ---
Infectious Disease Subjective - Review of Systems Service Date: 09/29/16 Subjective: There is no new change, there is no fever. Infectious Disease Objective - Results Result Diagrams: 09/29/16 05:00 09/29/16 05:00 Recent Labs: Laboratory Last Values WBC 10.4 Th/cmm (4.8-10.8) D 09/29/16 05:00 RBC 3.52 Mil/cmm (3.80-5.20) L 09/29/16 05:00 Hgb 10.0 gm/dL (11.7-16.1) L 09/29/16 05:00 Hct 30.6 % (35.0-45.0) L D 09/29/16 05:00 MCV 87.0 fl (81-100) 09/29/16 05:00 MCH 28.5 pg (27.0-31.0) 09/29/16 05:00 MCHC Differential 32.8 pg (28.0-36.0) 09/29/16 05:00 RDW 14.0 % (11.5-20.0) 09/29/16 05:00 Plt Count 154 Th/cmm (150-400) 09/29/16 05:00 MPV 10.5 fl 09/29/16 05:00 Neutrophils % 68.9 % (40.0-80.0) 09/29/16 05:00 Band Neutrophils % 2 % (0-10) 09/27/16 05:27 Lymphocytes % 17.1 % (20.0-50.0) L 09/29/16 05:00 Monocytes % 9.0 % (2.0-10.0) 09/29/16 05:00 Eosinophils % 4.7 % (0.0-5.0) 09/29/16 05:00 Basophils % 0.3 % (0.0-2.0) 09/29/16 05:00 Neutrophils (Manual) 85 % (40-80) H 09/27/16 05:27 Lymphocytes 8 % (20-50) L 09/27/16 05:27 Monocytes 5 % (2-10) 09/27/16 05:27 Platelet Estimate ADEQUATE (NORMAL) 09/27/16 05:27 Platelet Morphology NORMAL (NORMAL) 09/27/16 05:27 RBC Morph Micro Appear NORMAL (NORMAL) 09/27/16 05:27 Sodium 147 mEq/L (136-145) H 09/29/16 05:00 Potassium 4.0 mEq/L (3.5-5.1) 09/29/16 05:00 Chloride 117 mEq/L (98-107) H 09/29/16 05:00 Carbon Dioxide 26.6 mEq/L (21.0-31.0) 09/29/16 05:00 Anion Gap 7.4 (7.0-16.0) 09/29/16 05:00 BUN 24 mg/dL (7-25) 09/29/16 05:00 Creatinine 0.6 mg/dL (0.6-1.2) 09/29/16 05:00 Est GFR ( Amer) > 60.0 ml/min (>90) 09/29/16 05:00 Est GFR (Non-Af Amer) > 60.0 ml/min 09/29/16 05:00 BUN/Creatinine Ratio 40.0 09/29/16 05:00 Glucose 99 mg/dL (70-105) 09/29/16 05:00 Whole Bld Lactic Acid 1.79 mmol/L (0.60-1.99) 09/26/16 22:35 Calcium 8.7 mg/dL (8.6-10.3) 09/29/16 05:00 C-Reactive Protein 11.8 mg/dL (0.0-0.9) H 09/28/16 04:50 Lipase 17 U/L (11-82) 09/26/16 22:35 Urine Source AMAYA PORT 09/28/16 05:30 Urine Color YELLOW 09/28/16 05:30 Urine Clarity SLIGHT CLOUDY (CLEAR) 09/28/16 05:30 Urine pH 6.0 (4.6 - 8.0) 09/28/16 05:30 Ur Specific [place] 1.020 (1.005-1.030) 09/28/16 05:30 Urine Protein 100 mg/dL (NEGATIVE) H 09/28/16 05:30 Urine Glucose (UA) NEGATIVE mg/dL (NEGATIVE) 09/28/16 05:30 Urine Ketones NEGATIVE mg/dL (NEGATIVE) 09/28/16 05:30 Urine Blood LARGE (NEGATIVE) H 09/28/16 05:30 Urine Nitrate NEGATIVE (NEGATIVE) 09/28/16 05:30 Urine Bilirubin NEGATIVE (NEGATIVE) 09/28/16 05:30 Urine Ictotest NEGATIVE (NEGATIVE) 09/26/16 23:00 Urine Urobilinogen 0.2 E.U./dL (0.2 - 1.0) 09/28/16 05:30 Ur Leukocyte Esterase MODERATE (NEGATIVE) H 09/28/16 05:30 Urine RBC 50-100 /hpf (0-5) H 09/28/16 05:30 Urine WBC 25-50 /hpf (0-5) H 09/28/16 05:30 Ur Epithelial Cells FEW /lpf (FEW) 09/28/16 05:30 Urine Bacteria FEW /hpf (NONE SEEN) 09/28/16 05:30 Ur Oval Fat Bodies /hpf (NONE SEEN) 09/26/16 23:00 - Physical Exam Vitals and I&O: Vital Signs Temp 98.2 F 09/29/16 20:00 Pulse 85 09/29/16 20:00 Resp 20 09/29/16 20:00 BP 110/57 09/29/16 20:00 Pulse Ox 97 09/29/16 20:00 Intake & Output 09/29/16 09/29/16 09/30/16 06:59 18:59 06:59 Intake Total 1325 813.167 Balance 1325 813.167 Weight (lbs) 61.371 kg Intake: Intake, IV Amount 1100 813.167 D5-0.45NS 1,000 ml @ 70 1000 813.167 mls/hr IV .[id number] [facility] Rx #:[id number] Meropenem 1 gm In Sodium 100 Chloride 0.9% 100 ml @ 100 mls/hr IV Q12H [facility] Rx #:[id number] Tube Feeding 225 Other: # Voids 2 # Bowel Movements 1 Active Medications: Current Medications Acetaminophen (Tylenol 650mg/20.3ml Suspension) 500 mg GT Q4H PRN PRN Reason: Fever >101 Stop: 11/26/16 02:38 Last Admin: 09/27/16 13:45 Dose: 500 mg Ascorbic Acid (Vitamin C) 500 mg GT DAILY [facility] Stop: 11/26/16 08:59 Last Admin: 09/29/16 08:47 Dose: 500 mg Dextrose/Sodium Chloride (D5-0.45ns) 1,000 mls @ 70 mls/hr IV .[id number] [facility] Stop: 11/26/16 10:11 Last Admin: 09/29/16 08:48 Dose: 70 mls/hr Meropenem 1 gm/ Sodium (Chloride) 100 mls @ 100 mls/hr IV Q12H [facility] Stop: 11/26/16 14:59 Last Admin: 09/29/16 16:30 Dose: 100 mls/hr Lactobacillus Rhamnosus (Culturelle) 1 each PO DAILY [facility] Stop: 11/27/16 08:59 Last Admin: 09/29/16 08:47 Dose: 1 each Levetiracetam (Keppra) 500 mg GT BID [facility] Stop: 11/26/16 08:59 Last Admin: 09/29/16 16:31 Dose: 500 mg Lorazepam (Ativan) 1 mg GT BID PRN; Protocol PRN Reason: Anxiety Stop: 11/26/16 02:46 Memantine (Namenda) 5 mg GT DAILY [facility] Stop: 11/26/16 08:59 Last Admin: 09/29/16 08:47 Dose: 5 mg Mirtazapine (Remeron) 45 mg GT HS [facility] Stop: 11/26/16 20:59 Last Admin: 09/29/16 20:14 Dose: 45 mg Miscellaneous (Clinical Monitoring) 1 ea PRN PRN PRN Reason: MERREM RENAL DOSED Stop: 11/26/16 10:33 Miscellaneous (Probiotic Screen) 1 ea PRN PRN PRN Reason: PROTOCOL Stop: 11/26/16 10:36 Morphine Sulfate (Morphine) 2 mg IVP Q4HR PRN PRN Reason: Severe Pain Stop: 11/26/16 14:09 Last Admin: 09/29/16 05:18 Dose: 2 mg Ondansetron HCl (Zofran) 4 mg IV Q6H PRN PRN Reason: Nausea / Vomiting Stop: 11/26/16 02:44 Zinc Sulfate (Zinc Sulfate) 220 mg GT DAILY [facility] Stop: 11/26/16 08:59 Last Admin: 09/29/16 08:47 Dose: 220 mg General: no acute distress, well developed, well nourished HEENT: atraumatic, normocephalic, EOMI Neck: supple, no thyromegaly Cardiovascular: S1S2, regular, systolic murmur Lungs: clear to auscultation bilaterally, clear to percussion Abdomen: soft, no tender, no distended Extremities: no cyanosis, no clubbing, no edema Neurological: awake, alert Skin: other (left foot wound deep, and oght foot wounds.) - Procedures Procedures: Procedures Procedure Code Date DRAINAGE OF SKIN ABSCESS 28791 10/09/14 OTHER SKIN & SUBQ I D 86.04 10/09/14 Infectious Disease Assmt/Plan - Problem List Patient Problems: All Active Problems Cellulitis, gluteal, right (Acute) L03.317 Combative behavior (Acute 02/10/15) R46.89 - Assessment Assessment: 1. Sepsis. 2. Complicated UTI. ESBL Pos E coli infection. 3. Leukocytosis. 4. Dementia 5. Left sided hydronephrosis. 6. bilateral foot ulcers worse in left. r/o osteomyelitis. - Plan Plan: Will continue merpenem. Wound cultures 3 phase bone scan.. C A/p. esr Nutritional Asmnt/Malnutr-PDOC - Dietary Evaluation Malnutrition Findings (Please click <Entered> for more info): Nutritional Asmnt/Malnutrition Start: 09/27/16 15: 19 Text: Status: Complete Freq: Document 09/27/16 19:47 [facility] (Rec: 09/27/16 19:58 [facility] [id number]) Nutritional Asmnt/Malnutrition Patient General Information Nutritional Screening Consult Diagnosis Sepsis, complicated UTI Pertinent Medical Hx/Surgical Hx Advanced dementia, seizure disorders, old CVA with late affect, recent hx foot osteomyelitis, dysphagia, tube feeding, psychiatric disorders Subjective Information Nutrition Consult for caleb scale 10 and pressure ulcers received and completed. Pt is a 66-year-old female from [facility] admitted with chief complaint of fever and tachycardia. Tube feeding started today at 20 ml/hr and slowly increasing to goal rate . Pt is tolerating tube feeding well with no residuals . Current Diet Order/ Nutrition Support Fibersource HN at 55 ml/hr continuous = 1584kcals, 71gm protein, 1069ml H2O Patient / S.O Can't verbalize diet edu Pertinent Medications Vitamin C, D5-0.45 ns, Culturelle, Meropenem, Morphine, Zofran, Zinc Sulfate Pertinent Labs (09/27) Na 150H, BUN 70H ( improved) Nutritional Hx/Data Height 1.63 m Height (Calculated Centimeters) 162.6 Current Weight (lbs) 62.369 kg Weight (Calculated Kilograms) 62.4 Weight (Calculated Grams) 35461.0 [place] Body Weight 120 % [place] Body Weight 115 Weight Status Approriate GI Symptoms GI Symptoms None Difficult in: Swallowing Food Allergies No Skin Integrity/Comment: Caleb 8. Right foot, right and left 5th metatarsal head pressure ulcers. Estimated Nutritional Goals BEE in Kcals: Using Current wt Calories/Kcals/Kg Based on current body wt 62.5 kg with consideration of sepsis Kcals Calculated 4134-4793 kcals/day (30-35 kcals/kg) Protein: Using Current wt Protein g/kg: Based on current body wt 62.5 kg with consideration of sepsis Protein Calculated 75-94 gm/day (1.2-1.5 gm/kg) Fluid: ml 1875 ml/kg (30 ml/kg) or per MD/DO Nutritional Problem 1. Problem Problem Increased energy needs related to Etiology increased metabolic demands with physiological stress as evidenced by Signs/Symptoms: dx sepsis. Malnutrition Alert Is there a minimum of two criteria No selected? Query Text:Check all the applicable criteria. A minimum of two criteria are recommended for diagnosis of either severe or non-severe malnutrition. Malnutrition Related to Morbid Obesity Malnutrition related to morbid obesity No Intervention/Recommendation Recommendations by RD Increase Calorie Intake Comments 1. Recommend increase Fibersource HN to goal rate of 65 ml/hr to better meet estimated nutritional needs. Tube feeding to provide 1872 kcals, 84 gm protein, and 1264 ml free water per day. 2. Consider discontinuing zinc sulfate supplementation as tube feeding is adequate to meet mineral needs. Expected Outcomes/Goals Expected Outcomes/Goals Provide pt with 100% of estimated nutritional needs for conservation of lean muscle mass and promote wound healing. Physician Parameters for PEM Normal Weight % 90% - 110% (Normal) Body Mass Index (BMI) 19 - 24 (Normal)
[2016-09-30] MEDS: D5-0.45NS 1,000 ML IV SCH (01:47)
[2016-09-30] MEDS: Meropenem 1 GM in Sodium Chloride 0.9% 100 ML IV SCH ×2 (03:39→16:31)
[2016-09-30] MEDS: Morphine Sulfate 2 mg/mL 1mL Syr IVP PRN (04:11)
[2016-09-30 06:42] LABS: % BASOPHILS 0.1 % (0.0-2.0); % EOSINOPHILS 5.2 % (0.0-5.0); % LYMPHOCYTES 17.6 % (20.0-50.0); % NEUTROPHILS 68.1 % (40.0-80.0); HEMATOCRIT 29.5 % (35.0-45.0); HEMOGLOBIN 9.7 gm/dL (11.7-16.1); MEAN CORPUSCULAR HEMOGLOBIN 28.4 pg (27.0-31.0); MEAN CORPUSCULAR HGB CONC 33.1 pg (28.0-36.0); MEAN PLATELET VOLUME 9.4 fl; NEUTROPHILE ABSOLUTE 6.8 Th/cmm (1.8-8.0); PLATELET COUNT 164 Th/cmm (150-400); RED BLOOD COUNT 3.43 Mil/cmm (3.80-5.20); RED CELL DISTRIBUTION WIDTH 13.9 % (11.5-20.0)
[2016-09-30 06:57] LABS: BUN - UREA NITROGEN 20 mg/dL (7-25); BUN/CREATININE RATIO 33.3; CALCIUM SERUM 8.6 mg/dL (8.6-10.3); CHLORIDE 109 mEq/L (98-107); CREATININE - SERUM 0.6 mg/dL (0.6-1.2); GLUCOSE 104 mg/dL (70-105); SODIUM SERUM 140 mEq/L (136-145)
[2016-09-30] MEDS: Levetiracetam 500 mg/5mL 5mL UDC GT SCH ×2 (09:58→16:32)
[2016-09-30] MEDS: Lactobacillus Rhamnosus 10 Billion CFU Capsule PO SCH (09:58)
[2016-09-30] MEDS: Ascorbic Acid 500 mg/5 mL UDC GT SCH (09:59)
[2016-09-30] MEDS: Multivitamin w/ Minerals Tab GT SCH (09:59)
[2016-09-30] MEDS: Venelex 60gm Tube TP SCH (10:00)
--- NOTE | 2016-09-30 15:31 | Diagnostic Imaging Report ---
CT scan abdomen and pelvis without intravenous contrast HISTORY: Pain, hydronephrosis Total DLP equals 436 CTDI equals 9.4 Axial sections were obtained from the xiphoid process down to the pubic symphysis. Exam is limited due to difficulty in patient positioning and patient motion. No focal lesions seen within the liver. The spleen appears normal and no focal amenities seen in the region of the pancreas. The tail about the kidneys is somewhat limited due to motion artifact. There appears to be mild to moderate degree of dilatation of the right renal pelvis. This may be related to an extrarenal location. No significant calyceal dilatation is appreciated. Mild dilatation of the left renal pelvis also noted. Gastrostomy tube is seen. The pelvis demonstrates preservation of normal fat planes. No abnormal soft tissue masses or abnormal fluid collections. Numerous diverticula scattered through the sigmoid and descending colon. Degenerative changes noted throughout the spine. There is a distended stool-filled rectum. IMPRESSION: 1. Somewhat limited exam due to patient motion and suboptimal positioning. 2. Detail of the kidneys is limited. However, there is suggestion of mild to moderate dilatation of the right renal pelvis. This may be related to a extra-renal location. No significant appreciable dilatation of the calyces is seen. Mild dilatation of the left renal pelvis also noted. Findings should be correlated with renal function tests. In view of the scan limitations, a radionuclide 3 phase renal scan may provide additional assessment of excretion if indicated. 3. Diverticulosis 4. Moderately distended stool-filled rectum
--- NOTE | 2016-09-30 18:32 | General Progress Note ---
Subjective - Review of Systems Service Date: 09/30/16 Subjective: Patient doing better WBC better afebrile CT ABD PELVIS reviewed Objective - Results Result Diagrams: 09/30/16 06:25 09/30/16 06:25 Recent Labs: Laboratory Last Values WBC 10.0 Th/cmm (4.8-10.8) 09/30/16 06:25 RBC 3.43 Mil/cmm (3.80-5.20) L 09/30/16 06:25 Hgb 9.7 gm/dL (11.7-16.1) L 09/30/16 06:25 Hct 29.5 % (35.0-45.0) L 09/30/16 06:25 MCV 86.0 fl (81-100) 09/30/16 06:25 MCH 28.4 pg (27.0-31.0) 09/30/16 06:25 MCHC Differential 33.1 pg (28.0-36.0) 09/30/16 06:25 RDW 13.9 % (11.5-20.0) 09/30/16 06:25 Plt Count 164 Th/cmm (150-400) 09/30/16 06:25 MPV 9.4 fl 09/30/16 06:25 Neutrophils % 68.1 % (40.0-80.0) 09/30/16 06:25 Band Neutrophils % 2 % (0-10) 09/27/16 05:27 Lymphocytes % 17.6 % (20.0-50.0) L 09/30/16 06:25 Monocytes % 9.0 % (2.0-10.0) 09/30/16 06:25 Eosinophils % 5.2 % (0.0-5.0) H 09/30/16 06:25 Basophils % 0.1 % (0.0-2.0) 09/30/16 06:25 Neutrophils (Manual) 85 % (40-80) H 09/27/16 05:27 Lymphocytes 8 % (20-50) L 09/27/16 05:27 Monocytes 5 % (2-10) 09/27/16 05:27 Platelet Estimate ADEQUATE (NORMAL) 09/27/16 05:27 Platelet Morphology NORMAL (NORMAL) 09/27/16 05:27 RBC Morph Micro Appear NORMAL (NORMAL) 09/27/16 05:27 ESR 118 mm/hr (0-30) H 09/30/16 06:25 Sodium 140 mEq/L (136-145) 09/30/16 06:25 Potassium 4.0 mEq/L (3.5-5.1) 09/30/16 06:25 Chloride 109 mEq/L (98-107) H 09/30/16 06:25 Carbon Dioxide 28.0 mEq/L (21.0-31.0) 09/30/16 06:25 Anion Gap 7.0 (7.0-16.0) 09/30/16 06:25 BUN 20 mg/dL (7-25) 09/30/16 06:25 Creatinine 0.6 mg/dL (0.6-1.2) 09/30/16 06:25 Est GFR ( Amer) > 60.0 ml/min (>90) 09/30/16 06:25 Est GFR (Non-Af Amer) > 60.0 ml/min 09/30/16 06:25 BUN/Creatinine Ratio 33.3 09/30/16 06:25 Glucose 104 mg/dL (70-105) 09/30/16 06:25 Whole Bld Lactic Acid 1.79 mmol/L (0.60-1.99) 09/26/16 22:35 Calcium 8.6 mg/dL (8.6-10.3) 09/30/16 06:25 C-Reactive Protein 11.8 mg/dL (0.0-0.9) H 09/28/16 04:50 Lipase 17 U/L (11-82) 09/26/16 22:35 Urine Source AMAYA PORT 09/28/16 05:30 Urine Color YELLOW 09/28/16 05:30 Urine Clarity SLIGHT CLOUDY (CLEAR) 09/28/16 05:30 Urine pH 6.0 (4.6 - 8.0) 09/28/16 05:30 Ur Specific [place] 1.020 (1.005-1.030) 09/28/16 05:30 Urine Protein 100 mg/dL (NEGATIVE) H 09/28/16 05:30 Urine Glucose (UA) NEGATIVE mg/dL (NEGATIVE) 09/28/16 05:30 Urine Ketones NEGATIVE mg/dL (NEGATIVE) 09/28/16 05:30 Urine Blood LARGE (NEGATIVE) H 09/28/16 05:30 Urine Nitrate NEGATIVE (NEGATIVE) 09/28/16 05:30 Urine Bilirubin NEGATIVE (NEGATIVE) 09/28/16 05:30 Urine Ictotest NEGATIVE (NEGATIVE) 09/26/16 23:00 Urine Urobilinogen 0.2 E.U./dL (0.2 - 1.0) 09/28/16 05:30 Ur Leukocyte Esterase MODERATE (NEGATIVE) H 09/28/16 05:30 Urine RBC 50-100 /hpf (0-5) H 09/28/16 05:30 Urine WBC 25-50 /hpf (0-5) H 09/28/16 05:30 Ur Epithelial Cells FEW /lpf (FEW) 09/28/16 05:30 Urine Bacteria FEW /hpf (NONE SEEN) 09/28/16 05:30 Ur Oval Fat Bodies /hpf (NONE SEEN) 09/26/16 23:00 - Physical Exam Vitals and I&O: Vital Signs Temp 97.4 F 09/30/16 12:00 Pulse 80 09/30/16 12:00 Resp 18 09/30/16 12:00 BP 154/82 09/30/16 12:00 Pulse Ox 99 09/30/16 12:00 Intake & Output 09/29/16 09/30/16 09/30/16 18:59 06:59 18:59 Intake Total 384.022 2385 Output Total 850 Balance 913.167 525 Weight (lbs) 61.28 kg Intake: Intake, IV Amount 723.287 8028 D5-0.45NS 1,000 ml @ 70 828.910 7211 mls/hr IV .[id number] [facility] Rx #:[id number] Meropenem 1 gm In Sodium 100 100 Chloride 0.9% 100 ml @ 100 mls/hr IV Q12H [facility] Rx #:[id number] Tube Feeding 275 Output: Urine 850 Other: # Bowel Movements 0 Active Medications: Current Medications Acetaminophen (Tylenol 650mg/20.3ml Suspension) 500 mg GT Q4H PRN PRN Reason: Fever >101 Stop: 11/26/16 02:38 Last Admin: 09/27/16 13:45 Dose: 500 mg Ascorbic Acid (Vitamin C) 500 mg GT DAILY [facility] Stop: 11/26/16 08:59 Last Admin: 09/30/16 09:59 Dose: 500 mg Dextrose/Sodium Chloride (D5-0.45ns) 1,000 mls @ 70 mls/hr IV .[id number] [facility] Stop: 11/26/16 10:11 Last Admin: 09/30/16 01:47 Dose: 70 mls/hr Meropenem 1 gm/ Sodium (Chloride) 100 mls @ 100 mls/hr IV Q12H [facility] Stop: 11/26/16 14:59 Last Admin: 09/30/16 16:31 Dose: 100 mls/hr Lactobacillus Rhamnosus (Culturelle) 1 each PO DAILY [facility] Stop: 11/27/16 08:59 Last Admin: 09/30/16 09:58 Dose: 1 each Levetiracetam (Keppra) 500 mg GT BID [facility] Stop: 11/26/16 08:59 Last Admin: 09/30/16 16:32 Dose: 500 mg Lorazepam (Ativan) 1 mg GT BID PRN; Protocol PRN Reason: Anxiety Stop: 11/26/16 02:46 Memantine (Namenda) 5 mg GT DAILY [facility] Stop: 11/26/16 08:59 Last Admin: 09/30/16 09:59 Dose: 5 mg Mirtazapine (Remeron) 45 mg GT HS [facility] Stop: 11/26/16 20:59 Last Admin: 09/29/16 20:14 Dose: 45 mg Miscellaneous (Clinical Monitoring) 1 ea PRN PRN PRN Reason: MERREM RENAL DOSED Stop: 11/26/16 10:33 Miscellaneous (Probiotic Screen) 1 [facility] PRN PRN PRN Reason: PROTOCOL Stop: 11/26/16 10:36 Morphine Sulfate (Morphine) 2 mg IVP Q4HR PRN PRN Reason: Severe Pain Stop: 11/26/16 14:09 Last Admin: 09/30/16 04:11 Dose: 2 mg Ondansetron HCl (Zofran) 4 mg IV Q6H PRN PRN Reason: Nausea / Vomiting Stop: 11/26/16 02:44 Zinc Sulfate (Zinc Sulfate) 220 mg GT DAILY [facility] Stop: 11/26/16 08:59 Last Admin: 09/30/16 09:59 Dose: 220 mg Cardiovascular: Regular rate Lungs: Clear to auscultation Abdomen: Soft, no Tender - Procedures Procedures: Procedures Procedure Code Date DRAINAGE OF SKIN ABSCESS 90171 10/09/14 OTHER SKIN & SUBQ I D 86.04 10/09/14 Assessment/Plan - Problem List Patient Problems: All Active Problems Cellulitis, gluteal, right (Acute) L03.317 Combative behavior (Acute 02/10/15) R46.89 - Assessment Assessment: Sepsis improving Complicated UTI with right hydronephrosis Hematuria better 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 dementia Dysphagia - Plan Plan: Continue Meropenem Monitor hematuria Monitor vitals Tube feeding Out patient UROLOGY eval plan of care discussed with nursing staff Nutritional Asmnt/Malnutr-PDOC - Dietary Evaluation Malnutrition Findings (Please click <Entered> for more info): Nutritional Asmnt/Malnutrition Start: 09/27/16 15: 19 Text: Status: Complete Freq: Document 09/27/16 19:47 [facility] (Rec: 09/27/16 19:58 [facility] [id number]) Nutritional Asmnt/Malnutrition Patient General Information Nutritional Screening Consult Diagnosis Sepsis, complicated UTI Pertinent Medical Hx/Surgical Hx Advanced dementia, seizure disorders, old CVA with late affect, recent hx foot osteomyelitis, dysphagia, tube feeding, psychiatric disorders Subjective Information Nutrition Consult for caleb scale 10 and pressure ulcers received and completed. Pt is a 66-year-old female from [facility] admitted with chief complaint of fever and tachycardia. Tube feeding started today at 20 ml/hr and slowly increasing to goal rate . Pt is tolerating tube feeding well with no residuals . Current Diet Order/ Nutrition Support Fibersource HN at 55 ml/hr continuous = 1584kcals, 71gm protein, 1069ml H2O Patient / S.O Can't verbalize diet edu Pertinent Medications Vitamin C, D5-0.45 ns, Culturelle, Meropenem, Morphine, Zofran, Zinc Sulfate Pertinent Labs (09/27) Na 150H, BUN 70H ( improved) Nutritional Hx/Data Height 1.63 m Height (Calculated Centimeters) 162.6 Current Weight (lbs) 62.369 kg Weight (Calculated Kilograms) 62.4 Weight (Calculated Grams) 51964.0 [place] Body Weight 120 % [place] Body Weight 115 Weight Status Approriate GI Symptoms GI Symptoms None Difficult in: Swallowing Food Allergies No Skin Integrity/Comment: Caleb 8. Right foot, right and left 5th metatarsal head pressure ulcers. Estimated Nutritional Goals BEE in Kcals: Using Current wt Calories/Kcals/Kg Based on current body wt 62.5 kg with consideration of sepsis Kcals Calculated 3535-8682 kcals/day (30-35 kcals/kg) Protein: Using Current wt Protein g/kg: Based on current body wt 62.5 kg with consideration of sepsis Protein Calculated 75-94 gm/day (1.2-1.5 gm/kg) Fluid: ml 1875 ml/kg (30 ml/kg) or per MD/DO Nutritional Problem 1. Problem Problem Increased energy needs related to Etiology increased metabolic demands with physiological stress as evidenced by Signs/Symptoms: dx sepsis. Malnutrition Alert Is there a minimum of two criteria No selected? Query Text:Check all the applicable criteria. A minimum of two criteria are recommended for diagnosis of either severe or non-severe malnutrition. Malnutrition Related to Morbid Obesity Malnutrition related to morbid obesity No Intervention/Recommendation Recommendations by RD Increase Calorie Intake Comments 1. Recommend increase Fibersource HN to goal rate of 65 ml/hr to better meet estimated nutritional needs. Tube feeding to provide 1872 kcals, 84 gm protein, and 1264 ml free water per day. 2. Consider discontinuing zinc sulfate supplementation as tube feeding is adequate to meet mineral needs. Expected Outcomes/Goals Expected Outcomes/Goals Provide pt with 100% of estimated nutritional needs for conservation of lean muscle mass and promote wound healing. Physician Parameters for PEM Normal Weight % 90% - 110% (Normal) Body Mass Index (BMI) 19 - 24 (Normal)
--- NOTE | 2016-09-30 23:53 | Infectious Disease Prog Note ---
Infectious Disease Subjective - Review of Systems Service Date: 09/30/16 Subjective: There is no new change, there is no fever. Infectious Disease Objective - Results Result Diagrams: 09/30/16 06:25 09/30/16 06:25 Recent Labs: Laboratory Last Values WBC 10.0 Th/cmm (4.8-10.8) 09/30/16 06:25 RBC 3.43 Mil/cmm (3.80-5.20) L 09/30/16 06:25 Hgb 9.7 gm/dL (11.7-16.1) L 09/30/16 06:25 Hct 29.5 % (35.0-45.0) L 09/30/16 06:25 MCV 86.0 fl (81-100) 09/30/16 06:25 MCH 28.4 pg (27.0-31.0) 09/30/16 06:25 MCHC Differential 33.1 pg (28.0-36.0) 09/30/16 06:25 RDW 13.9 % (11.5-20.0) 09/30/16 06:25 Plt Count 164 Th/cmm (150-400) 09/30/16 06:25 MPV 9.4 fl 09/30/16 06:25 Neutrophils % 68.1 % (40.0-80.0) 09/30/16 06:25 Band Neutrophils % 2 % (0-10) 09/27/16 05:27 Lymphocytes % 17.6 % (20.0-50.0) L 09/30/16 06:25 Monocytes % 9.0 % (2.0-10.0) 09/30/16 06:25 Eosinophils % 5.2 % (0.0-5.0) H 09/30/16 06:25 Basophils % 0.1 % (0.0-2.0) 09/30/16 06:25 Neutrophils (Manual) 85 % (40-80) H 09/27/16 05:27 Lymphocytes 8 % (20-50) L 09/27/16 05:27 Monocytes 5 % (2-10) 09/27/16 05:27 Platelet Estimate ADEQUATE (NORMAL) 09/27/16 05:27 Platelet Morphology NORMAL (NORMAL) 09/27/16 05:27 RBC Morph Micro Appear NORMAL (NORMAL) 09/27/16 05:27 ESR 118 mm/hr (0-30) H 09/30/16 06:25 Sodium 140 mEq/L (136-145) 09/30/16 06:25 Potassium 4.0 mEq/L (3.5-5.1) 09/30/16 06:25 Chloride 109 mEq/L (98-107) H 09/30/16 06:25 Carbon Dioxide 28.0 mEq/L (21.0-31.0) 09/30/16 06:25 Anion Gap 7.0 (7.0-16.0) 09/30/16 06:25 BUN 20 mg/dL (7-25) 09/30/16 06:25 Creatinine 0.6 mg/dL (0.6-1.2) 09/30/16 06:25 Est GFR ( Amer) > 60.0 ml/min (>90) 09/30/16 06:25 Est GFR (Non-Af Amer) > 60.0 ml/min 09/30/16 06:25 BUN/Creatinine Ratio 33.3 09/30/16 06:25 Glucose 104 mg/dL (70-105) 09/30/16 06:25 Whole Bld Lactic Acid 1.79 mmol/L (0.60-1.99) 09/26/16 22:35 Calcium 8.6 mg/dL (8.6-10.3) 09/30/16 06:25 C-Reactive Protein 11.8 mg/dL (0.0-0.9) H 09/28/16 04:50 Lipase 17 U/L (11-82) 09/26/16 22:35 Urine Source AMAYA [place] 09/28/16 05:30 Urine Color YELLOW 09/28/16 05:30 Urine Clarity SLIGHT CLOUDY (CLEAR) 09/28/16 05:30 Urine pH 6.0 (4.6 - 8.0) 09/28/16 05:30 Ur Specific [place] 1.020 (1.005-1.030) 09/28/16 05:30 Urine Protein 100 mg/dL (NEGATIVE) H 09/28/16 05:30 Urine Glucose (UA) NEGATIVE mg/dL (NEGATIVE) 09/28/16 05:30 Urine Ketones NEGATIVE mg/dL (NEGATIVE) 09/28/16 05:30 Urine Blood LARGE (NEGATIVE) H 09/28/16 05:30 Urine Nitrate NEGATIVE (NEGATIVE) 09/28/16 05:30 Urine Bilirubin NEGATIVE (NEGATIVE) 09/28/16 05:30 Urine Ictotest NEGATIVE (NEGATIVE) 09/26/16 23:00 Urine Urobilinogen 0.2 E.U./dL (0.2 - 1.0) 09/28/16 05:30 Ur Leukocyte Esterase MODERATE (NEGATIVE) H 09/28/16 05:30 Urine RBC 50-100 /hpf (0-5) H 09/28/16 05:30 Urine WBC 25-50 /hpf (0-5) H 09/28/16 05:30 Ur Epithelial Cells FEW /lpf (FEW) 09/28/16 05:30 Urine Bacteria FEW /hpf (NONE SEEN) 09/28/16 05:30 Ur Oval Fat Bodies /hpf (NONE SEEN) 09/26/16 23:00 - Physical Exam Vitals and I&O: Vital Signs Temp 99.2 F 09/30/16 20:00 Pulse 84 09/30/16 20:00 Resp 19 09/30/16 20:00 BP 108/68 09/30/16 20:00 Pulse Ox 97 09/30/16 20:00 Intake & Output 09/30/16 09/30/16 10/01/16 06:59 18:59 06:59 Intake Total 1375 Output Total 850 850 Balance 525 -850 Weight (lbs) 61.28 kg 61.235 kg Intake: Intake, IV Amount 1100 D5-0.45NS 1,000 ml @ 70 1000 mls/hr IV .[id number] [facility] Rx #:[id number] Meropenem 1 gm In Sodium 100 Chloride 0.9% 100 ml @ 100 mls/hr IV Q12H [facility] Rx #:[id number] Tube Feeding 275 Output: Urine 850 850 Other: # Bowel Movements 0 1 Active Medications: Current Medications Acetaminophen (Tylenol 650mg/20.3ml Suspension) 500 mg GT Q4H PRN PRN Reason: Fever >101 Stop: 11/26/16 02:38 Last Admin: 09/27/16 13:45 Dose: 500 mg Ascorbic Acid (Vitamin C) 500 mg GT DAILY [facility] Stop: 11/26/16 08:59 Last Admin: 09/30/16 09:59 Dose: 500 mg Dextrose/Sodium Chloride (D5-0.45ns) 1,000 mls @ 70 mls/hr IV .[id number] [facility] Stop: 11/26/16 10:11 Last Admin: 09/30/16 01:47 Dose: 70 mls/hr Meropenem 1 gm/ Sodium (Chloride) 100 mls @ 100 mls/hr IV Q12H [facility] Stop: 11/26/16 14:59 Last Admin: 09/30/16 16:31 Dose: 100 mls/hr Lactobacillus Rhamnosus (Culturelle) 1 each PO DAILY [facility] Stop: 11/27/16 08:59 Last Admin: 09/30/16 09:58 Dose: 1 each Levetiracetam (Keppra) 500 mg GT BID [facility] Stop: 11/26/16 08:59 Last Admin: 09/30/16 16:32 Dose: 500 mg Lorazepam (Ativan) 1 mg GT BID PRN; Protocol PRN Reason: Anxiety Stop: 11/26/16 02:46 Memantine (Namenda) 5 mg GT DAILY [facility] Stop: 11/26/16 08:59 Last Admin: 09/30/16 09:59 Dose: 5 mg Mirtazapine (Remeron) 45 mg GT HS [facility] Stop: 11/26/16 20:59 Last Admin: 09/30/16 22:08 Dose: 45 mg Miscellaneous (Clinical Monitoring) 1 ea PRN PRN PRN Reason: MERREM RENAL DOSED Stop: 11/26/16 10:33 Miscellaneous (Probiotic Screen) 1 ea PRN PRN PRN Reason: PROTOCOL Stop: 11/26/16 10:36 Morphine Sulfate (Morphine) 2 mg IVP Q4HR PRN PRN Reason: Severe Pain Stop: 11/26/16 14:09 Last Admin: 09/30/16 04:11 Dose: 2 mg Mupirocin (Bactroban Oint) 1 appl NS BID [facility] Stop: 10/05/16 17:01 Ondansetron HCl (Zofran) 4 mg IV Q6H PRN PRN Reason: Nausea / Vomiting Stop: 11/26/16 02:44 Zinc Sulfate (Zinc Sulfate) 220 mg GT DAILY [facility] Stop: 11/26/16 08:59 Last Admin: 09/30/16 09:59 Dose: 220 mg - Procedures Procedures: Procedures Procedure Code Date DRAINAGE OF SKIN ABSCESS 41118 10/09/14 OTHER SKIN & SUBQ I D 86.04 10/09/14 Infectious Disease Assmt/Plan - Problem List Patient Problems: All Active Problems Cellulitis, gluteal, right (Acute) L03.317 Combative behavior (Acute 02/10/15) R46.89 - Assessment Assessment: 1. Sepsis. 2. Complicated UTI. ESBL Pos E coli infection. 3. Leukocytosis. 4. Dementia 5. Left sided hydronephrosis. 6. bilateral foot ulcers worse in left. r/o osteomyelitis. - Plan Plan: Will continue merpenem. Wound cultures 3 phase bone scan.. C A/p. esr Nutritional Asmnt/Malnutr-PDOC - Dietary Evaluation Malnutrition Findings (Please click <Entered> for more info): Nutritional Asmnt/Malnutrition Start: 09/27/16 15: 19 Text: Status: Complete Freq: Document 09/27/16 19:47 [facility] (Rec: 09/27/16 19:58 [facility] [id number]) Nutritional Asmnt/Malnutrition Patient General Information Nutritional Screening Consult Diagnosis Sepsis, complicated UTI Pertinent Medical Hx/Surgical Hx Advanced dementia, seizure disorders, old CVA with late affect, recent hx foot osteomyelitis, dysphagia, tube feeding, psychiatric disorders Subjective Information Nutrition Consult for caleb scale 10 and pressure ulcers received and completed. Pt is a 66-year-old female from [facility] with chief complaint of fever and tachycardia. Tube feeding started today at 20 ml/hr and slowly increasing to goal rate . Pt is tolerating tube feeding well with no residuals . Current Diet Order/ Nutrition Support Fibersource HN at 55 ml/hr continuous = 1584kcals, 71gm protein, 1069ml H2O Patient / S.O Can't verbalize diet edu Pertinent Medications Vitamin C, D5-0.45 ns, Culturelle, Meropenem, Morphine, Zofran, Zinc Sulfate Pertinent Labs (09/27) Na 150H, BUN 70H ( improved) Nutritional Hx/Data Height 1.63 m Height (Calculated Centimeters) 162.6 Current Weight (lbs) 62.369 kg Weight (Calculated Kilograms) 62.4 Weight (Calculated Grams) 03395.0 [place] Body Weight 120 % [place] Body Weight 115 Weight Status Approriate GI Symptoms GI Symptoms None Difficult in: Swallowing Food Allergies No Skin Integrity/Comment: Caleb 8. Right foot, right and left 5th metatarsal head pressure ulcers. Estimated Nutritional Goals BEE in Kcals: Using Current wt Calories/Kcals/Kg Based on current body wt 62.5 kg with consideration of sepsis Kcals Calculated 2317-6282 kcals/day (30-35 kcals/kg) Protein: Using Current wt Protein g/kg: Based on current body wt 62.5 kg with consideration of sepsis Protein Calculated 75-94 gm/day (1.2-1.5 gm/kg) Fluid: ml 1875 ml/kg (30 ml/kg) or per MD/DO Nutritional Problem 1. Problem Problem Increased energy needs related to Etiology increased metabolic demands with physiological stress as evidenced by Signs/Symptoms: dx sepsis. Malnutrition Alert Is there a minimum of two criteria No selected? Query Text:Check all the applicable criteria. A minimum of two criteria are recommended for diagnosis of either severe or non-severe malnutrition. Malnutrition Related to Morbid Obesity Malnutrition related to morbid obesity No Intervention/Recommendation Recommendations by RD Increase Calorie Intake Comments 1. Recommend increase Fibersource HN to goal rate of 65 ml/hr to better meet estimated nutritional needs. Tube feeding to provide 1872 kcals, 84 gm protein, and 1264 ml free water per day. 2. Consider discontinuing zinc sulfate supplementation as tube feeding is adequate to meet mineral needs. Expected Outcomes/Goals Expected Outcomes/Goals Provide pt with 100% of estimated nutritional needs for conservation of lean muscle mass and promote wound healing. Physician Parameters for PEM Normal Weight % 90% - 110% (Normal) Body Mass Index (BMI) 19 - 24 (Normal)
[2016-10-01] MEDS: D5-0.45NS 1,000 ML IV SCH (01:39)
[2016-10-01] MEDS: Meropenem 1 GM in Sodium Chloride 0.9% 100 ML IV SCH ×2 (03:28→14:22)
[2016-10-01 06:18] LABS: % BASOPHILS 0.1 % (0.0-2.0); % EOSINOPHILS 5.7 % (0.0-5.0); % LYMPHOCYTES 15.6 % (20.0-50.0); % MONOCYTES 7.8 % (2.0-10.0); % NEUTROPHILS 70.8 % (40.0-80.0); HEMATOCRIT 31.3 % (35.0-45.0); HEMOGLOBIN 10.5 gm/dL (11.7-16.1); MEAN CELL VOLUME 85.4 fl (81-100); MEAN CORPUSCULAR HEMOGLOBIN 28.7 pg (27.0-31.0); MEAN CORPUSCULAR HGB CONC 33.6 pg (28.0-36.0); MEAN PLATELET VOLUME 10.3 fl; NEUTROPHILE ABSOLUTE 6.9 Th/cmm (1.8-8.0); PLATELET COUNT 185 Th/cmm (150-400); RED BLOOD COUNT 3.67 Mil/cmm (3.80-5.20); RED CELL DISTRIBUTION WIDTH 13.9 % (11.5-20.0); WHITE BLOOD COUNT 9.6 Th/cmm (4.8-10.8)
[2016-10-01 06:45] LABS: ANION GAP 7.2 (7.0-16.0); BUN - UREA NITROGEN 18 mg/dL (7-25); CARBON DIOXIDE 26.8 mEq/L (21.0-31.0); CHLORIDE 109 mEq/L (98-107); CREATININE - SERUM 0.6 mg/dL (0.6-1.2); GLUCOSE 129 mg/dL (70-105); SODIUM SERUM 139 mEq/L (136-145)
[2016-10-01] MEDS: Ascorbic Acid 500 mg/5 mL UDC GT SCH (09:09)
[2016-10-01] MEDS: Lactobacillus Rhamnosus 10 Billion CFU Capsule PO SCH (09:09)
[2016-10-01] MEDS: Levetiracetam 500 mg/5mL 5mL UDC GT SCH ×2 (09:09→16:20)
[2016-10-01] MEDS: Multivitamin w/ Minerals Tab GT SCH (09:09)
--- NOTE | 2016-10-01 09:13 | Diagnostic Imaging Report ---
Radionuclide 3 phase bone scan of the feet HISTORY: Swelling, osteomyelitis 23.0 mCi technetium MDP was used in the exam. Initial perfusion/blood flow and subsequent blood pool and delayed images were obtained. The exam is limited due to difficulty in patient cooperation positioning. Initial perfusion images are particularly limited. There does appear to be increased activity in the region of the left first toe. Blood pool images also demonstrate increased activity within the soft tissues of the left first toe. Delayed images demonstrate increased activity in the vicinity of the first metatarsal phalangeal joint. The combination of findings is most suggestive of osteomyelitis. Correlation with plain radiographs is advised. The exam of the right foot demonstrates increased activity through the shaft of the fifth metatarsal. No significant increased activity noted on the initial perfusion and blood pool images. Osteomyelitis cannot be excluded. However, correlation with plain radiographs is needed. IMPRESSION: 1. Limited/suboptimal exam due to difficulty in patient positioning and cooperation 2. Findings as described above suggesting osteomyelitis in the region of the first toe (first metatarsal phalangeal joint area). Correlation with plain radiographs is needed. 3. Increased activity on delayed images along the shaft of the fifth metatarsal. Initial perfusion and blood pole images suboptimal. Nonetheless, findings suggest possible osteomyelitis. Correlation with plain radiographs is needed.
--- NOTE | 2016-10-01 16:59 | General Progress Note ---
Subjective - Review of Systems Service Date: 10/01/16 Subjective: Patient doing better afebrile Objective - Results Result Diagrams: 10/01/16 06:00 10/01/16 06:00 Recent Labs: Laboratory Last Values WBC 9.6 Th/cmm (4.8-10.8) 10/01/16 06:00 RBC 3.67 Mil/cmm (3.80-5.20) L 10/01/16 06:00 Hgb 10.5 gm/dL (11.7-16.1) L 10/01/16 06:00 Hct 31.3 % (35.0-45.0) L 10/01/16 06:00 MCV 85.4 fl (81-100) 10/01/16 06:00 MCH 28.7 pg (27.0-31.0) 10/01/16 06:00 MCHC Differential 33.6 pg (28.0-36.0) 10/01/16 06:00 RDW 13.9 % (11.5-20.0) 10/01/16 06:00 Plt Count 185 Th/cmm (150-400) 10/01/16 06:00 MPV 10.3 fl 10/01/16 06:00 Neutrophils % 70.8 % (40.0-80.0) 10/01/16 06:00 Band Neutrophils % 2 % (0-10) 09/27/16 05:27 Lymphocytes % 15.6 % (20.0-50.0) L 10/01/16 06:00 Monocytes % 7.8 % (2.0-10.0) 10/01/16 06:00 Eosinophils % 5.7 % (0.0-5.0) H 10/01/16 06:00 Basophils % 0.1 % (0.0-2.0) 10/01/16 06:00 Neutrophils (Manual) 85 % (40-80) H 09/27/16 05:27 Lymphocytes 8 % (20-50) L 09/27/16 05:27 Monocytes 5 % (2-10) 09/27/16 05:27 Platelet Estimate ADEQUATE (NORMAL) 09/27/16 05:27 Platelet Morphology NORMAL (NORMAL) 09/27/16 05:27 RBC Morph Micro Appear NORMAL (NORMAL) 09/27/16 05:27 ESR 118 mm/hr (0-30) H 09/30/16 06:25 Sodium 139 mEq/L (136-145) 10/01/16 06:00 Potassium 4.0 mEq/L (3.5-5.1) 10/01/16 06:00 Chloride 109 mEq/L (98-107) H 10/01/16 06:00 Carbon Dioxide 26.8 mEq/L (21.0-31.0) 10/01/16 06:00 Anion Gap 7.2 (7.0-16.0) 10/01/16 06:00 BUN 18 mg/dL (7-25) 10/01/16 06:00 Creatinine 0.6 mg/dL (0.6-1.2) 10/01/16 06:00 Est GFR ( Amer) > 60.0 ml/min (>90) 10/01/16 06:00 Est GFR (Non-Af Amer) > 60.0 ml/min 10/01/16 06:00 BUN/Creatinine Ratio 30.0 10/01/16 06:00 Glucose 129 mg/dL (70-105) H 10/01/16 06:00 Whole Bld Lactic Acid 1.79 mmol/L (0.60-1.99) 09/26/16 22:35 Calcium 9.0 mg/dL (8.6-10.3) 10/01/16 06:00 C-Reactive Protein 11.8 mg/dL (0.0-0.9) H 09/28/16 04:50 Lipase 17 U/L (11-82) 09/26/16 22:35 Urine Source A[facility] [place] 09/28/16 05:30 Urine Color YELLOW 09/28/16 05:30 Urine Clarity SLIGHT CLOUDY (CLEAR) 09/28/16 05:30 Urine pH 6.0 (4.6 - 8.0) 09/28/16 05:30 Ur Specific [place] 1.020 (1.005-1.030) 09/28/16 05:30 Urine Protein 100 mg/dL (NEGATIVE) H 09/28/16 05:30 Urine Glucose (UA) NEGATIVE mg/dL (NEGATIVE) 09/28/16 05:30 Urine Ketones NEGATIVE mg/dL (NEGATIVE) 09/28/16 05:30 Urine Blood LARGE (NEGATIVE) H 09/28/16 05:30 Urine Nitrate NEGATIVE (NEGATIVE) 09/28/16 05:30 Urine Bilirubin NEGATIVE (NEGATIVE) 09/28/16 05:30 Urine Ictotest NEGATIVE (NEGATIVE) 09/26/16 23:00 Urine Urobilinogen 0.2 E.U./dL (0.2 - 1.0) 09/28/16 05:30 Ur Leukocyte Esterase MODERATE (NEGATIVE) H 09/28/16 05:30 Urine RBC 50-100 /hpf (0-5) H 09/28/16 05:30 Urine WBC 25-50 /hpf (0-5) H 09/28/16 05:30 Ur Epithelial Cells FEW /lpf (FEW) 09/28/16 05:30 Urine Bacteria FEW /hpf (NONE SEEN) 09/28/16 05:30 Ur Oval Fat Bodies /hpf (NONE SEEN) 09/26/16 23:00 - Physical Exam Vitals and I&O: Vital Signs Temp 98.8 F 10/01/16 15:55 Pulse 86 10/01/16 15:55 Resp 17 10/01/16 15:55 BP 128/73 10/01/16 15:55 Pulse Ox 98 10/01/16 15:55 Intake & Output 09/30/16 10/01/16 10/01/16 18:59 06:59 18:59 Intake Total 1100 100 660 Output Total 850 1200 Balance 250 -1100 660 Weight (lbs) 61.235 kg 59.647 kg 59.421 kg Intake: Intake, IV Amount 1100 100 D5-0.45NS 1,000 ml @ 70 1000 mls/hr IV .[id number] [facility] Rx #:[id number] Meropenem 1 gm In Sodium 100 100 Chloride 0.9% 100 ml @ 100 mls/hr IV Q12H [facility] Rx #:[id number] Tube Feeding 660 Output: Urine 850 1200 Other: # Voids 3 # Bowel Movements 1 0 1 Active Medications: Current Medications Acetaminophen (Tylenol 650mg/20.3ml Suspension) 500 mg GT Q4H PRN PRN Reason: Fever >101 Stop: 11/26/16 02:38 Last Admin: 09/27/16 13:45 Dose: 500 mg Ascorbic Acid (Vitamin C) 500 mg GT DAILY [facility] Stop: 11/26/16 08:59 Last Admin: 10/01/16 09:09 Dose: 500 mg Dextrose/Sodium Chloride (D5-0.45ns) 1,000 mls @ 70 mls/hr IV .[id number] [facility] Stop: 11/26/16 10:11 Last Admin: 10/01/16 01:39 Dose: 70 mls/hr Meropenem 1 gm/ Sodium (Chloride) 100 mls @ 100 mls/hr IV Q12H [facility] Stop: 11/26/16 14:59 Last Admin: 10/01/16 14:22 Dose: 100 mls/hr Lactobacillus Rhamnosus (Culturelle) 1 each PO DAILY [facility] Stop: 11/27/16 08:59 Last Admin: 10/01/16 09:09 Dose: 1 each Levetiracetam (Keppra) 500 mg GT BID [facility] Stop: 11/26/16 08:59 Last Admin: 10/01/16 16:20 Dose: 500 mg Lorazepam (Ativan) 1 mg GT BID PRN; Protocol PRN Reason: Anxiety Stop: 11/26/16 02:46 Memantine (Namenda) 5 mg GT DAILY [facility] Stop: 11/26/16 08:59 Last Admin: 10/01/16 09:09 Dose: 5 mg Mirtazapine (Remeron) 45 mg GT HS [facility] Stop: 11/26/16 20:59 Last Admin: 09/30/16 22:08 Dose: 45 mg Miscellaneous (Clinical Monitoring) 1 ea PRN PRN PRN Reason: MERREM RENAL DOSED Stop: 11/26/16 10:33 Miscellaneous (Probiotic Screen) 1 ea PRN PRN PRN Reason: PROTOCOL Stop: 11/26/16 10:36 Morphine Sulfate (Morphine) 2 mg IVP Q4HR PRN PRN Reason: Severe Pain Stop: 11/26/16 14:09 Last Admin: 09/30/16 04:11 Dose: 2 mg Mupirocin (Bactroban Oint) 1 appl NS BID [facility] Stop: 10/05/16 17:01 Last Admin: 10/01/16 16:21 Dose: 1 appl Ondansetron HCl (Zofran) 4 mg IV Q6H PRN PRN Reason: Nausea / Vomiting Stop: 11/26/16 02:44 Zinc Sulfate (Zinc Sulfate) 220 mg GT DAILY [facility] Stop: 11/26/16 08:59 Last Admin: 10/01/16 09:09 Dose: 220 mg Cardiovascular: Regular rate Lungs: Clear to auscultation Abdomen: Soft, no Tender Extremities: Other (bilateral feet wound clean) - Procedures Procedures: Procedures Procedure Code Date DRAINAGE OF SKIN ABSCESS 58038 10/09/14 OTHER SKIN & SUBQ I D 86.04 10/09/14 Assessment/Plan - Problem List Patient Problems: All Active Problems Cellulitis, gluteal, right (Acute) L03.317 Combative behavior (Acute 02/10/15) R46.89 - Assessment Assessment: Sepsis improving Complicated UTI with right hydronephrosis Hematuria better 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 dementia Dysphagia - Plan Plan: Continue Meropenem Monitor hematuria Monitor vitals Tube feeding Out patient UROLOGY eval plan of care discussed with nursing staff Nutritional Asmnt/Malnutr-PDOC - Dietary Evaluation Malnutrition Findings (Please click <Entered> for more info): Nutritional Asmnt/Malnutrition Start: 09/27/16 15: 19 Text: Status: Complete Freq: Document 09/27/16 19:47 [facility] (Rec: 09/27/16 19:58 [facility] [id number]) Nutritional Asmnt/Malnutrition Patient General Information Nutritional Screening Consult Diagnosis Sepsis, complicated UTI Pertinent Medical Hx/Surgical Hx Advanced dementia, seizure disorders, old CVA with late affect, recent hx foot osteomyelitis, dysphagia, tube feeding, psychiatric disorders Subjective Information Nutrition Consult for caleb scale 10 and pressure ulcers received and completed. Pt is a 66-year-old female from [facility] admitted with chief complaint of fever and tachycardia. Tube feeding started today at 20 ml/hr and slowly increasing to goal rate . Pt is tolerating tube feeding well with no residuals . Current Diet Order/ Nutrition Support Fibersource HN at 55 ml/hr continuous = 1584kcals, 71gm protein, 1069ml H2O Patient / S.O Can't verbalize diet edu Pertinent Medications Vitamin C, D5-0.45 ns, Culturelle, Meropenem, Morphine, Zofran, Zinc Sulfate Pertinent Labs (09/27) Na 150H, BUN 70H ( improved) Nutritional Hx/Data Height 1.63 m Height (Calculated Centimeters) 162.6 Current Weight (lbs) 62.369 kg Weight (Calculated Kilograms) 62.4 Weight (Calculated Grams) 84382.0 [place] Body Weight 120 % [place] Body Weight 115 Weight Status Approriate GI Symptoms GI Symptoms None Difficult in: Swallowing Food Allergies No Skin Integrity/Comment: Caleb 8. Right foot, right and left 5th metatarsal head pressure ulcers. Estimated Nutritional Goals BEE in Kcals: Using Current wt Calories/Kcals/Kg Based on current body wt 62.5 kg with consideration of sepsis Kcals Calculated 2072-1089 kcals/day (30-35 kcals/kg) Protein: Using Current wt Protein g/kg: Based on current body wt 62.5 kg with consideration of sepsis Protein Calculated 75-94 gm/day (1.2-1.5 gm/kg) Fluid: ml 1875 ml/kg (30 ml/kg) or per MD/DO Nutritional Problem 1. Problem Problem Increased energy needs related to Etiology increased metabolic demands with physiological stress as evidenced by Signs/Symptoms: dx sepsis. Malnutrition Alert Is there a minimum of two criteria No selected? Query Text:Check all the applicable criteria. A minimum of two criteria are recommended for diagnosis of either severe or non-severe malnutrition. Malnutrition Related to Morbid Obesity Malnutrition related to morbid obesity No Intervention/Recommendation Recommendations by RD Increase Calorie Intake Comments 1. Recommend increase Fibersource HN to goal rate of 65 ml/hr to better meet estimated nutritional needs. Tube feeding to provide 1872 kcals, 84 gm protein, and 1264 ml free water per day. 2. Consider discontinuing zinc sulfate supplementation as tube feeding is adequate to meet mineral needs. Expected Outcomes/Goals Expected Outcomes/Goals Provide pt with 100% of estimated nutritional needs for conservation of lean muscle mass and promote wound healing. Physician Parameters for PEM Normal Weight % 90% - 110% (Normal) Body Mass Index (BMI) 19 - 24 (Normal)
[2016-10-02] MEDS: Meropenem 1 GM in Sodium Chloride 0.9% 100 ML IV SCH ×2 (03:55→15:15)
[2016-10-02] MEDS: D5-0.45NS 1,000 ML IV SCH (06:16)
[2016-10-02 07:46] LABS: % BASOPHILS 0.1 % (0.0-2.0); % EOSINOPHILS 4.9 % (0.0-5.0); % LYMPHOCYTES 15.8 % (20.0-50.0); % MONOCYTES 8.8 % (2.0-10.0); % NEUTROPHILS 70.4 % (40.0-80.0); HEMOGLOBIN 10.5 gm/dL (11.7-16.1); MEAN CELL VOLUME 85.2 fl (81-100); MEAN CORPUSCULAR HGB CONC 32.9 pg (28.0-36.0); MEAN PLATELET VOLUME 10.7 fl; NEUTROPHILE ABSOLUTE 6.5 Th/cmm (1.8-8.0); PLATELET COUNT 205 Th/cmm (150-400); RED BLOOD COUNT 3.75 Mil/cmm (3.80-5.20); RED CELL DISTRIBUTION WIDTH 13.9 % (11.5-20.0); WHITE BLOOD COUNT 9.3 Th/cmm (4.8-10.8)
[2016-10-02 07:57] LABS: ANION GAP 6.7 (7.0-16.0); BUN - UREA NITROGEN 15 mg/dL (7-25); CALCIUM SERUM 9.1 mg/dL (8.6-10.3); CARBON DIOXIDE 26.3 mEq/L (21.0-31.0); CHLORIDE 108 mEq/L (98-107); CREATININE - SERUM 0.5 mg/dL (0.6-1.2); GLUCOSE 97 mg/dL (70-105); SODIUM SERUM 137 mEq/L (136-145)
[2016-10-02] MEDS: Lactobacillus Rhamnosus 10 Billion CFU Capsule PO SCH (09:13)
[2016-10-02] MEDS: Multivitamin w/ Minerals Tab GT SCH (09:13)
[2016-10-02] MEDS: Ascorbic Acid 500 mg/5 mL UDC GT SCH (09:14)
[2016-10-02] MEDS: Levetiracetam 500 mg/5mL 5mL UDC GT SCH ×2 (09:14→17:37)
--- NOTE | 2016-10-02 13:52 | Infectious Disease Prog Note ---
Infectious Disease Subjective - Review of Systems Service Date: 10/02/16 Subjective: There is no new change, there is no fever. Wound c/s grew MRSA and proteus Infectious Disease Objective - Results Result Diagrams: 10/02/16 06:30 10/02/16 06:30 Recent Labs: Laboratory Last Values WBC 9.3 Th/cmm (4.8-10.8) 10/02/16 06:30 RBC 3.75 Mil/cmm (3.80-5.20) L 10/02/16 06:30 Hgb 10.5 gm/dL (11.7-16.1) L 10/02/16 06:30 Hct 32.0 % (35.0-45.0) L 10/02/16 06:30 MCV 85.2 fl (81-100) 10/02/16 06:30 MCH 28.0 pg (27.0-31.0) 10/02/16 06:30 MCHC Differential 32.9 pg (28.0-36.0) 10/02/16 06:30 RDW 13.9 % (11.5-20.0) 10/02/16 06:30 Plt Count 205 Th/cmm (150-400) 10/02/16 06:30 MPV 10.7 fl 10/02/16 06:30 Neutrophils % 70.4 % (40.0-80.0) 10/02/16 06:30 Band Neutrophils % 2 % (0-10) 09/27/16 05:27 Lymphocytes % 15.8 % (20.0-50.0) L 10/02/16 06:30 Monocytes % 8.8 % (2.0-10.0) 10/02/16 06:30 Eosinophils % 4.9 % (0.0-5.0) 10/02/16 06:30 Basophils % 0.1 % (0.0-2.0) 10/02/16 06:30 Neutrophils (Manual) 85 % (40-80) H 09/27/16 05:27 Lymphocytes 8 % (20-50) L 09/27/16 05:27 Monocytes 5 % (2-10) 09/27/16 05:27 Platelet Estimate ADEQUATE (NORMAL) 09/27/16 05:27 Platelet Morphology NORMAL (NORMAL) 09/27/16 05:27 RBC Morph Micro Appear NORMAL (NORMAL) 09/27/16 05:27 ESR 118 mm/hr (0-30) H 09/30/16 06:25 Sodium 137 mEq/L (136-145) 10/02/16 06:30 Potassium 4.0 mEq/L (3.5-5.1) 10/02/16 06:30 Chloride 108 mEq/L (98-107) H 10/02/16 06:30 Carbon Dioxide 26.3 mEq/L (21.0-31.0) 10/02/16 06:30 Anion Gap 6.7 (7.0-16.0) L 10/02/16 06:30 BUN 15 mg/dL (7-25) 10/02/16 06:30 Creatinine 0.5 mg/dL (0.6-1.2) L 10/02/16 06:30 Est GFR ( Amer) > 60.0 ml/min (>90) 10/02/16 06:30 Est GFR (Non-Af Amer) > 60.0 ml/min 10/02/16 06:30 BUN/Creatinine Ratio 30.0 10/02/16 06:30 Glucose 97 mg/dL (70-105) 10/02/16 06:30 Whole Bld Lactic Acid 1.79 mmol/L (0.60-1.99) 09/26/16 22:35 Calcium 9.1 mg/dL (8.6-10.3) 10/02/16 06:30 C-Reactive Protein 11.8 mg/dL (0.0-0.9) H 09/28/16 04:50 Lipase 17 U/L (11-82) 09/26/16 22:35 Urine Source [facility] [place] 09/28/16 05:30 Urine Color YELLOW 09/28/16 05:30 Urine Clarity SLIGHT CLOUDY (CLEAR) 09/28/16 05:30 Urine pH 6.0 (4.6 - 8.0) 09/28/16 05:30 Ur Specific [place] 1.020 (1.005-1.030) 09/28/16 05:30 Urine Protein 100 mg/dL (NEGATIVE) H 09/28/16 05:30 Urine Glucose (UA) NEGATIVE mg/dL (NEGATIVE) 09/28/16 05:30 Urine Ketones NEGATIVE mg/dL (NEGATIVE) 09/28/16 05:30 Urine Blood LARGE (NEGATIVE) H 09/28/16 05:30 Urine Nitrate NEGATIVE (NEGATIVE) 09/28/16 05:30 Urine Bilirubin NEGATIVE (NEGATIVE) 09/28/16 05:30 Urine Ictotest NEGATIVE (NEGATIVE) 09/26/16 23:00 Urine Urobilinogen 0.2 E.U./dL (0.2 - 1.0) 09/28/16 05:30 Ur Leukocyte Esterase MODERATE (NEGATIVE) H 09/28/16 05:30 Urine RBC 50-100 /hpf (0-5) H 09/28/16 05:30 Urine WBC 25-50 /hpf (0-5) H 09/28/16 05:30 Ur Epithelial Cells FEW /lpf (FEW) 09/28/16 05:30 Urine Bacteria FEW /hpf (NONE SEEN) 09/28/16 05:30 Ur Oval Fat Bodies /hpf (NONE SEEN) 09/26/16 23:00 - Physical Exam Vitals and I&O: Vital Signs Temp 98.2 F 10/02/16 12:00 Pulse 99 10/02/16 12:00 Resp 19 10/02/16 12:00 BP 117/75 10/02/16 12:00 Pulse Ox 98 10/02/16 12:00 Intake & Output 10/01/16 10/02/16 10/02/16 18:59 06:59 18:59 Intake Total 1760 705 Output Total 600 Balance 1760 105 Weight (lbs) 59.421 kg 62.596 kg 62.596 kg Intake: Intake, IV Amount 1100 100 D5-0.45NS 1,000 ml @ 70 1000 0 mls/hr IV .[id number] [facility] Rx #:[id number] Meropenem 1 gm In Sodium 100 100 Chloride 0.9% 100 ml @ 100 mls/hr IV Q12H [facility] Rx #:[id number] Tube Feeding 660 605 Output: Urine 600 Other: # Voids 3 # Bowel Movements 1 1 Active Medications: Current Medications Acetaminophen (Tylenol 650mg/20.3ml Suspension) 500 mg GT Q4H PRN PRN Reason: Fever >101 Stop: 11/26/16 02:38 Last Admin: 09/27/16 13:45 Dose: 500 mg Ascorbic Acid (Vitamin C) 500 mg GT DAILY [facility] Stop: 11/26/16 08:59 Last Admin: 10/02/16 09:14 Dose: 500 mg Dextrose/Sodium Chloride (D5-0.45ns) 1,000 mls @ 70 mls/hr IV .[id number] [facility] Stop: 11/26/16 10:11 Last Infusion: 10/02/16 06:18 Dose: Infused Meropenem 1 gm/ Sodium (Chloride) 100 mls @ 100 mls/hr IV Q12H [facility] Stop: 11/26/16 14:59 Last Infusion: 10/02/16 06:21 Dose: Infused Lactobacillus Rhamnosus (Culturelle) 1 each PO DAILY [facility] Stop: 11/27/16 08:59 Last Admin: 10/02/16 09:13 Dose: 1 each Levetiracetam (Keppra) 500 mg GT BID [facility] Stop: 11/26/16 08:59 Last Admin: 10/02/16 09:14 Dose: 500 mg Lorazepam (Ativan) 1 mg GT BID PRN; Protocol PRN Reason: Anxiety Stop: 11/26/16 02:46 Memantine (Namenda) 5 mg GT DAILY [facility] Stop: 11/26/16 08:59 Last Admin: 10/02/16 09:13 Dose: 5 mg Mirtazapine (Remeron) 45 mg GT HS [facility] Stop: 11/26/16 20:59 Last Admin: 10/01/16 21:57 Dose: 45 mg Miscellaneous (Clinical Monitoring) 1 ea MC PRN PRN PRN Reason: MERREM RENAL DOSED Stop: 11/26/16 10:33 Miscellaneous (Probiotic Screen) 1 ea PRN PRN PRN Reason: PROTOCOL Stop: 11/26/16 10:36 Morphine Sulfate (Morphine) 2 mg IVP Q4HR PRN PRN Reason: Severe Pain Stop: 11/26/16 14:09 Last Admin: 09/30/16 04:11 Dose: 2 mg Mupirocin (Bactroban Oint) 1 appl NS BID [facility] Stop: 10/05/16 17:01 Last Admin: 10/02/16 09:39 Dose: 1 appl Ondansetron HCl (Zofran) 4 mg IV Q6H PRN PRN Reason: Nausea / Vomiting Stop: 11/26/16 02:44 Zinc Sulfate (Zinc Sulfate) 220 mg GT DAILY [facility] Stop: 11/26/16 08:59 Last Admin: 10/02/16 09:13 Dose: 220 mg General: no acute distress, well developed, well nourished HEENT: atraumatic, normocephalic, PERRLA, moist mucous membrane Neck: supple, thyromegaly Cardiovascular: S1S2, regular Lungs: clear to auscultation bilaterally, clear to percussion Abdomen: soft, no tender, no distended Extremities: no cyanosis, no clubbing, no edema Neurological: awake 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 Sepsis. 2. Complicated UTI. ESBL Pos E coli infection. 3. Leukocytosis. 4. Dementia 5. Left sided hydronephrosis. 6. bilateral foot ulcers worse in left. osteomyelitis of the left foot, 1st metatarsal with adjacent open stage 4 wound. - Plan Plan: Will continue meropenem for 6 weeks. add vancO IV for 6 weeks, aggessive wound care. may transfer to LTAC Nutritional Asmnt/Malnutr-PDOC - Dietary Evaluation Malnutrition Findings (Please click <Entered> for more info): Nutritional Asmnt/Malnutrition Start: 09/27/16 15: 19 Text: Status: Complete Freq: Document 09/27/16 19:47 [facility] (Rec: 09/27/16 19:58 [facility] [id number]) Nutritional Asmnt/Malnutrition Patient General Information Nutritional Screening Consult Diagnosis Sepsis, complicated UTI Pertinent Medical Hx/Surgical Hx Advanced dementia, seizure disorders, old CVA with late affect, recent hx foot osteomyelitis, dysphagia, tube feeding, psychiatric disorders Subjective Information Nutrition Consult for caleb scale 10 and pressure ulcers received and completed. Pt is a 66-year-old female from [facility] with chief complaint of fever and tachycardia. Tube feeding started today at 20 ml/hr and slowly increasing to goal rate . Pt is tolerating tube feeding well with no residuals . Current Diet Order/ Nutrition Support Fibersource HN at 55 ml/hr continuous = 1584kcals, 71gm protein, 1069ml H2O Patient / S.O Can't verbalize diet edu Pertinent Medications Vitamin C, D5-0.45 ns, Culturelle, Meropenem, Morphine, Zofran, Zinc Sulfate Pertinent Labs (09/27) Na 150H, BUN 70H ( improved) Nutritional Hx/Data Height 1.63 m Height (Calculated Centimeters) 162.6 Current Weight (lbs) 62.369 kg Weight (Calculated Kilograms) 62.4 Weight (Calculated Grams) 37051.0 [place] Body Weight 120 % [place] Body Weight 115 Weight Status Approriate GI Symptoms GI Symptoms None Difficult in: Swallowing Food Allergies No Skin Integrity/Comment: Caleb 8. Right foot, right and left 5th metatarsal head pressure ulcers. Estimated Nutritional Goals BEE in Kcals: Using Current wt Calories/Kcals/Kg Based on current body wt 62.5 kg with consideration of sepsis Kcals Calculated 9641-8024 kcals/day (30-35 kcals/kg) Protein: Using Current wt Protein g/kg: Based on current body wt 62.5 kg with consideration of sepsis Protein Calculated 75-94 gm/day (1.2-1.5 gm/kg) Fluid: ml 1875 ml/kg (30 ml/kg) or per MD/DO Nutritional Problem 1. Problem Problem Increased energy needs related to Etiology increased metabolic demands with physiological stress as evidenced by Signs/Symptoms: dx sepsis. Malnutrition Alert Is there a minimum of two criteria No selected? Query Text:Check all the applicable criteria. A minimum of two criteria are recommended for diagnosis of either severe or non-severe malnutrition. Malnutrition Related to Morbid Obesity Malnutrition related to morbid obesity No Intervention/Recommendation Recommendations by RD Increase Calorie Intake Comments 1. Recommend increase Fibersource HN to goal rate of 65 ml/hr to better meet estimated nutritional needs. Tube feeding to provide 1872 kcals, 84 gm protein, and 1264 ml free water per day. 2. Consider discontinuing zinc sulfate supplementation as tube feeding is adequate to meet mineral needs. Expected Outcomes/Goals Expected Outcomes/Goals Provide pt with 100% of estimated nutritional needs for conservation of lean muscle mass and promote wound healing. Physician Parameters for PEM Normal Weight % 90% - 110% (Normal) Body Mass Index (BMI) 19 - 24 (Normal)
--- NOTE | 2016-10-02 14:21 | General Progress Note ---
Subjective - Review of Systems Service Date: 10/02/16 Subjective: Patient seen and examined afebrile wound culture positive for MRSA bone scan positive for osteomyelitis Objective - Results Result Diagrams: 10/02/16 06:30 10/02/16 06:30 Recent Labs: Laboratory Last Values WBC 9.3 Th/cmm (4.8-10.8) 10/02/16 06:30 RBC 3.75 Mil/cmm (3.80-5.20) L 10/02/16 06:30 Hgb 10.5 gm/dL (11.7-16.1) L 10/02/16 06:30 Hct 32.0 % (35.0-45.0) L 10/02/16 06:30 MCV 85.2 fl (81-100) 10/02/16 06:30 MCH 28.0 pg (27.0-31.0) 10/02/16 06:30 MCHC Differential 32.9 pg (28.0-36.0) 10/02/16 06:30 RDW 13.9 % (11.5-20.0) 10/02/16 06:30 Plt Count 205 Th/cmm (150-400) 10/02/16 06:30 MPV 10.7 fl 10/02/16 06:30 Neutrophils % 70.4 % (40.0-80.0) 10/02/16 06:30 Band Neutrophils % 2 % (0-10) 09/27/16 05:27 Lymphocytes % 15.8 % (20.0-50.0) L 10/02/16 06:30 Monocytes % 8.8 % (2.0-10.0) 10/02/16 06:30 Eosinophils % 4.9 % (0.0-5.0) 10/02/16 06:30 Basophils % 0.1 % (0.0-2.0) 10/02/16 06:30 Neutrophils (Manual) 85 % (40-80) H 09/27/16 05:27 Lymphocytes 8 % (20-50) L 09/27/16 05:27 Monocytes 5 % (2-10) 09/27/16 05:27 Platelet Estimate ADEQUATE (NORMAL) 09/27/16 05:27 Platelet Morphology NORMAL (NORMAL) 09/27/16 05:27 RBC Morph Micro Appear NORMAL (NORMAL) 09/27/16 05:27 ESR 118 mm/hr (0-30) H 09/30/16 06:25 Sodium 137 mEq/L (136-145) 10/02/16 06:30 Potassium 4.0 mEq/L (3.5-5.1) 10/02/16 06:30 Chloride 108 mEq/L (98-107) H 10/02/16 06:30 Carbon Dioxide 26.3 mEq/L (21.0-31.0) 10/02/16 06:30 Anion Gap 6.7 (7.0-16.0) L 10/02/16 06:30 BUN 15 mg/dL (7-25) 10/02/16 06:30 Creatinine 0.5 mg/dL (0.6-1.2) L 10/02/16 06:30 Est GFR ( Amer) > 60.0 ml/min (>90) 10/02/16 06:30 Est GFR (Non-Af Amer) > 60.0 ml/min 10/02/16 06:30 BUN/Creatinine Ratio 30.0 10/02/16 06:30 Glucose 97 mg/dL (70-105) 10/02/16 06:30 Whole Bld Lactic Acid 1.79 mmol/L (0.60-1.99) 09/26/16 22:35 Calcium 9.1 mg/dL (8.6-10.3) 10/02/16 06:30 C-Reactive Protein 11.8 mg/dL (0.0-0.9) H 09/28/16 04:50 Lipase 17 U/L (11-82) 09/26/16 22:35 Urine Source AMAYA PORT 09/28/16 05:30 Urine Color YELLOW 09/28/16 05:30 Urine Clarity SLIGHT CLOUDY (CLEAR) 09/28/16 05:30 Urine pH 6.0 (4.6 - 8.0) 09/28/16 05:30 Ur Specific [place] 1.020 (1.005-1.030) 09/28/16 05:30 Urine Protein 100 mg/dL (NEGATIVE) H 09/28/16 05:30 Urine Glucose (UA) NEGATIVE mg/dL (NEGATIVE) 09/28/16 05:30 Urine Ketones NEGATIVE mg/dL (NEGATIVE) 09/28/16 05:30 Urine Blood LARGE (NEGATIVE) H 09/28/16 05:30 Urine Nitrate NEGATIVE (NEGATIVE) 09/28/16 05:30 Urine Bilirubin NEGATIVE (NEGATIVE) 09/28/16 05:30 Urine Ictotest NEGATIVE (NEGATIVE) 09/26/16 23:00 Urine Urobilinogen 0.2 E.U./dL (0.2 - 1.0) 09/28/16 05:30 Ur Leukocyte Esterase MODERATE (NEGATIVE) H 09/28/16 05:30 Urine RBC 50-100 /hpf (0-5) H 09/28/16 05:30 Urine WBC 25-50 /hpf (0-5) H 09/28/16 05:30 Ur Epithelial Cells FEW /lpf (FEW) 09/28/16 05:30 Urine Bacteria FEW /hpf (NONE SEEN) 09/28/16 05:30 Ur Oval Fat Bodies /hpf (NONE SEEN) 09/26/16 23:00 - Physical Exam Vitals and I&O: Vital Signs Temp 98.2 F 10/02/16 12:00 Pulse 99 10/02/16 12:00 Resp 19 10/02/16 12:00 BP 117/75 10/02/16 12:00 Pulse Ox 98 10/02/16 12:00 Intake & Output 10/01/16 10/02/16 10/02/16 18:59 06:59 18:59 Intake Total 1760 705 Output Total 600 Balance 1760 105 Weight (lbs) 59.421 kg 62.596 kg 62.596 kg Intake: Intake, IV Amount 1100 100 D5-0.45NS 1,000 ml @ 70 1000 0 mls/hr IV .[id number] [facility] Rx #:[id number] Meropenem 1 gm In Sodium 100 100 Chloride 0.9% 100 ml @ 100 mls/hr IV Q12H [facility] Rx #:[id number] Tube Feeding 660 605 Output: Urine 600 Other: # Voids 3 # Bowel Movements 1 1 Active Medications: Current Medications Acetaminophen (Tylenol 650mg/20.3ml Suspension) 500 mg GT Q4H PRN PRN Reason: Fever >101 Stop: 11/26/16 02:38 Last Admin: 09/27/16 13:45 Dose: 500 mg Ascorbic Acid (Vitamin C) 500 mg GT DAILY [facility] Stop: 11/26/16 08:59 Last Admin: 10/02/16 09:14 Dose: 500 mg Dextrose/Sodium Chloride (D5-0.45ns) 1,000 mls @ 70 mls/hr IV .[id number] [facility] Stop: 11/26/16 10:11 Last Infusion: 10/02/16 06:18 Dose: Infused Meropenem 1 gm/ Sodium (Chloride) 100 mls @ 100 mls/hr IV Q12H [facility] Stop: 11/26/16 14:59 Last Infusion: 10/02/16 06:21 Dose: Infused Lactobacillus Rhamnosus (Culturelle) 1 each PO DAILY [facility] Stop: 11/27/16 08:59 Last Admin: 10/02/16 09:13 Dose: 1 each Levetiracetam (Keppra) 500 mg GT BID [facility] Stop: 11/26/16 08:59 Last Admin: 10/02/16 09:14 Dose: 500 mg Lorazepam (Ativan) 1 mg GT BID PRN; Protocol PRN Reason: Anxiety Stop: 11/26/16 02:46 Memantine (Namenda) 5 mg GT DAILY [facility] Stop: 11/26/16 08:59 Last Admin: 10/02/16 09:13 Dose: 5 mg Mirtazapine (Remeron) 45 mg GT HS [facility] Stop: 11/26/16 20:59 Last Admin: 10/01/16 21:57 Dose: 45 mg Miscellaneous (Clinical Monitoring) 1 ea MC PRN PRN PRN Reason: MERREM RENAL DOSED Stop: 11/26/16 10:33 Miscellaneous (Probiotic Screen) 1 ea MC PRN PRN PRN Reason: PROTOCOL Stop: 11/26/16 10:36 Miscellaneous (Vancomycin Iv Per Pharmacy) 1 ea MC PRN [facility] Stop: 12/01/16 14:14 Morphine Sulfate (Morphine) 2 mg IVP Q4HR PRN PRN Reason: Severe Pain Stop: 11/26/16 14:09 Last Admin: 09/30/16 04:11 Dose: 2 mg Mupirocin (Bactroban Oint) 1 appl NS BID [facility] Stop: 10/05/16 17:01 Last Admin: 10/02/16 09:39 Dose: 1 appl Ondansetron HCl (Zofran) 4 mg IV Q6H PRN PRN Reason: Nausea / Vomiting Stop: 11/26/16 02:44 Zinc Sulfate (Zinc Sulfate) 220 mg GT DAILY [facility] Stop: 11/26/16 08:59 Last Admin: 10/02/16 09:13 Dose: 220 mg Cardiovascular: Regular rate Lungs: Clear to auscultation Abdomen: Soft, no Tender Extremities: Other (bilateral feet wound noted) - Procedures Procedures: Procedures Procedure Code Date DRAINAGE OF SKIN ABSCESS 89611 10/09/14 OTHER SKIN & SUBQ I D 86.04 10/09/14 Assessment/Plan - Problem List Patient Problems: All Active Problems Cellulitis, gluteal, right (Acute) L03.317 Combative behavior (Acute 02/10/15) R46.89 - Assessment Assessment: Sepsis improving Osteomylitis foot Complicated UTI with right hydronephrosis Hematuria better 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 dementia Dysphagia - Plan Plan: Continue Meropenem 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 LTAC eval requested Monitor hematuria Monitor vitals Tube feeding Out patient UROLOGY eval plan of care discussed with nursing staff Nutritional Asmnt/Malnutr-PDOC - Dietary Evaluation Malnutrition Findings (Please click <Entered> for more info): Nutritional Asmnt/Malnutrition Start: 09/27/16 15: 19 Text: Status: Complete Freq: Document 09/27/16 19:47 [facility] (Rec: 09/27/16 19:58 [facility] [id number]) Nutritional Asmnt/Malnutrition Patient General Information Nutritional Screening Consult Diagnosis Sepsis, complicated UTI Pertinent Medical Hx/Surgical Hx Advanced dementia, seizure disorders, old CVA with late affect, recent hx foot osteomyelitis, dysphagia, tube feeding, psychiatric disorders Subjective Information Nutrition Consult for caleb scale 10 and pressure ulcers received and completed. Pt is a 66-year-old female from [facility] admitted with chief complaint of fever and tachycardia. Tube feeding started today at 20 ml/hr and slowly increasing to goal rate . Pt is tolerating tube feeding well with no residuals . Current Diet Order/ Nutrition Support Fibersource HN at 55 ml/hr continuous = 1584kcals, 71gm protein, 1069ml H2O Patient / S.O Can't verbalize diet edu Pertinent Medications Vitamin C, D5-0.45 ns, Culturelle, Meropenem, Morphine, Zofran, Zinc Sulfate Pertinent Labs (09/27) Na 150H, BUN 70H ( improved) Nutritional Hx/Data Height 1.63 m Height (Calculated Centimeters) 162.6 Current Weight (lbs) 62.369 kg Weight (Calculated Kilograms) 62.4 Weight (Calculated Grams) 17883.0 [place] Body Weight 120 % [place] Body Weight 115 Weight Status Approriate GI Symptoms GI Symptoms None Difficult in: Swallowing Food Allergies No Skin Integrity/Comment: Caleb 8. Right foot, right and left 5th metatarsal head pressure ulcers. Estimated Nutritional Goals BEE in Kcals: Using Current wt Calories/Kcals/Kg Based on current body wt 62.5 kg with consideration of sepsis Kcals Calculated 6793-7276 kcals/day (30-35 kcals/kg) Protein: Using Current wt Protein g/kg: Based on current body wt 62.5 kg with consideration of sepsis Protein Calculated 75-94 gm/day (1.2-1.5 gm/kg) Fluid: ml 1875 ml/kg (30 ml/kg) or per MD/DO Nutritional Problem 1. Problem Problem Increased energy needs related to Etiology increased metabolic demands with physiological stress as evidenced by Signs/Symptoms: dx sepsis. Malnutrition Alert Is there a minimum of two criteria No selected? Query Text:Check all the applicable criteria. A minimum of two criteria are recommended for diagnosis of either severe or non-severe malnutrition. Malnutrition Related to Morbid Obesity Malnutrition related to morbid obesity No Intervention/Recommendation Recommendations by RD Increase Calorie Intake Comments 1. Recommend increase Fibersource HN to goal rate of 65 ml/hr to better meet estimated nutritional needs. Tube feeding to provide 1872 kcals, 84 gm protein, and 1264 ml free water per day. 2. Consider discontinuing zinc sulfate supplementation as tube feeding is adequate to meet mineral needs. Expected Outcomes/Goals Expected Outcomes/Goals Provide pt with 100% of estimated nutritional needs for conservation of lean muscle mass and promote wound healing. Physician Parameters for PEM Normal Weight % 90% - 110% (Normal) Body Mass Index (BMI) 19 - 24 (Normal)
[2016-10-02] MEDS ORDERED: Morphine Sulfate 4 mg/mL 1mL Syr IVP PRN (16:37)
[2016-10-02] MEDS: Venelex 60gm Tube TP SCH (17:38)
[2016-10-03] MEDS: Meropenem 1 GM in Sodium Chloride 0.9% 100 ML IV SCH ×2 (03:35→15:12)
[2016-10-03 05:26] LABS: % BASOPHILS 0.6 % (0.0-2.0); % EOSINOPHILS 4.2 % (0.0-5.0); % LYMPHOCYTES 10.4 % (20.0-50.0); % MONOCYTES 7.7 % (2.0-10.0); % NEUTROPHILS 77.1 % (40.0-80.0); HEMATOCRIT 33.9 % (35.0-45.0); HEMOGLOBIN 11.4 gm/dL (11.7-16.1); MEAN CELL VOLUME 84.3 fl (81-100); MEAN CORPUSCULAR HEMOGLOBIN 28.2 pg (27.0-31.0); MEAN CORPUSCULAR HGB CONC 33.5 pg (28.0-36.0); MEAN PLATELET VOLUME 10.3 fl; RED BLOOD COUNT 4.02 Mil/cmm (3.80-5.20); RED CELL DISTRIBUTION WIDTH 13.9 % (11.5-20.0); WHITE BLOOD COUNT 10.4 Th/cmm (4.8-10.8)
[2016-10-03 05:56] LABS: PLATELET COUNT 248 Th/cmm (150-400)
[2016-10-03 05:57] LABS: ANION GAP 8.4 (7.0-16.0); BUN - UREA NITROGEN 16 mg/dL (7-25); CALCIUM SERUM 8.8 mg/dL (8.6-10.3); CARBON DIOXIDE 25.6 mEq/L (21.0-31.0); CHLORIDE 106 mEq/L (98-107); CREATININE - SERUM 0.5 mg/dL (0.6-1.2); GLUCOSE 145 mg/dL (70-105); SODIUM SERUM 136 mEq/L (136-145)
[2016-10-03] MEDS: Ascorbic Acid 500 mg/5 mL UDC GT SCH (08:17)
[2016-10-03] MEDS: Levetiracetam 500 mg/5mL 5mL UDC GT SCH ×2 (08:17→18:00)
[2016-10-03] MEDS: Lactobacillus Rhamnosus 10 Billion CFU Capsule PO SCH (08:17)
[2016-10-03] MEDS: Multivitamin w/ Minerals Tab GT SCH (08:18)
[2016-10-03] MEDS: Venelex 60gm Tube TP SCH ×2 (09:00→14:15)
--- NOTE | 2016-10-03 12:19 | Infectious Disease Prog Note ---
Infectious Disease Subjective - Review of Systems Service Date: 10/03/16 Subjective: There is no new change, there is no fever. Wound c/s grew MRSA and proteus Infectious Disease Objective - Results Result Diagrams: 10/03/16 05:06 10/03/16 05:06 Recent Labs: Laboratory Last Values WBC 10.4 Th/cmm (4.8-10.8) 10/03/16 05:06 RBC 4.02 Mil/cmm (3.80-5.20) 10/03/16 05:06 Hgb 11.4 gm/dL (11.7-16.1) L 10/03/16 05:06 Hct 33.9 % (35.0-45.0) L 10/03/16 05:06 MCV 84.3 fl (81-100) 10/03/16 05:06 MCH 28.2 pg (27.0-31.0) 10/03/16 05:06 MCHC Differential 33.5 pg (28.0-36.0) 10/03/16 05:06 RDW 13.9 % (11.5-20.0) 10/03/16 05:06 Plt Count 248 Th/cmm (150-400) D 10/03/16 05:06 MPV 10.3 fl 10/03/16 05:06 Neutrophils % 77.1 % (40.0-80.0) 10/03/16 05:06 Band Neutrophils % 2 % (0-10) 09/27/16 05:27 Lymphocytes % 10.4 % (20.0-50.0) L 10/03/16 05:06 Monocytes % 7.7 % (2.0-10.0) 10/03/16 05:06 Eosinophils % 4.2 % (0.0-5.0) 10/03/16 05:06 Basophils % 0.6 % (0.0-2.0) 10/03/16 05:06 Neutrophils (Manual) 85 % (40-80) H 09/27/16 05:27 Lymphocytes 8 % (20-50) L 09/27/16 05:27 Monocytes 5 % (2-10) 09/27/16 05:27 Platelet Estimate ADEQUATE (NORMAL) 09/27/16 05:27 Platelet Morphology NORMAL (NORMAL) 09/27/16 05:27 RBC Morph Micro Appear NORMAL (NORMAL) 09/27/16 05:27 ESR 118 mm/hr (0-30) H 09/30/16 06:25 Sodium 136 mEq/L (136-145) 10/03/16 05:06 Potassium 4.0 mEq/L (3.5-5.1) 10/03/16 05:06 Chloride 106 mEq/L (98-107) 10/03/16 05:06 Carbon Dioxide 25.6 mEq/L (21.0-31.0) 10/03/16 05:06 Anion Gap 8.4 (7.0-16.0) 10/03/16 05:06 BUN 16 mg/dL (7-25) 10/03/16 05:06 Creatinine 0.5 mg/dL (0.6-1.2) L 10/03/16 05:06 Est GFR ( Amer) > 60.0 ml/min (>90) 10/03/16 05:06 Est GFR (Non-Af Amer) > 60.0 ml/min 10/03/16 05:06 BUN/Creatinine Ratio 32.0 10/03/16 05:06 Glucose 145 mg/dL (70-105) H 10/03/16 05:06 Whole Bld Lactic Acid 1.79 mmol/L (0.60-1.99) 09/26/16 22:35 Calcium 8.8 mg/dL (8.6-10.3) 10/03/16 05:06 C-Reactive Protein 11.8 mg/dL (0.0-0.9) H 09/28/16 04:50 Lipase 17 U/L (11-82) 09/26/16 22:35 Urine Source AMAYA [place] 09/28/16 05:30 Urine Color YELLOW 09/28/16 05:30 Urine Clarity SLIGHT CLOUDY (CLEAR) 09/28/16 05:30 Urine pH 6.0 (4.6 - 8.0) 09/28/16 05:30 Ur Specific [place] 1.020 (1.005-1.030) 09/28/16 05:30 Urine Protein 100 mg/dL (NEGATIVE) H 09/28/16 05:30 Urine Glucose (UA) NEGATIVE mg/dL (NEGATIVE) 09/28/16 05:30 Urine Ketones NEGATIVE mg/dL (NEGATIVE) 09/28/16 05:30 Urine Blood LARGE (NEGATIVE) H 09/28/16 05:30 Urine Nitrate NEGATIVE (NEGATIVE) 09/28/16 05:30 Urine Bilirubin NEGATIVE (NEGATIVE) 09/28/16 05:30 Urine Ictotest NEGATIVE (NEGATIVE) 09/26/16 23:00 Urine Urobilinogen 0.2 E.U./dL (0.2 - 1.0) 09/28/16 05:30 Ur Leukocyte Esterase MODERATE (NEGATIVE) H 09/28/16 05:30 Urine RBC 50-100 /hpf (0-5) H 09/28/16 05:30 Urine WBC 25-50 /hpf (0-5) H 09/28/16 05:30 Ur Epithelial Cells FEW /lpf (FEW) 09/28/16 05:30 Urine Bacteria FEW /hpf (NONE SEEN) 09/28/16 05:30 Ur Oval Fat Bodies /hpf (NONE SEEN) 09/26/16 23:00 Vancomycin Trough 12.4 ug/mL (10-20) 10/03/16 05:06 - Physical Exam Vitals and I&O: Vital Signs Temp 97.5 F 10/02/16 20:00 Pulse 102 10/03/16 07:18 Resp 16 10/03/16 07:18 BP 136/66 10/02/16 20:00 Pulse Ox 97 10/03/16 07:18 Intake & Output 10/02/16 10/03/16 10/03/16 18:59 06:59 18:59 Intake Total 100 600 Balance 100 600 Weight (lbs) 62.596 kg 62.596 kg Intake: Intake, IV Amount 100 Meropenem 1 gm In Sodium 100 Chloride 0.9% 100 ml @ 100 mls/hr IV Q12H [facility] Rx #:[id number] Tube Feeding 600 Other: # Voids 1,000 Active Medications: Current Medications Acetaminophen (Tylenol 650mg/20.3ml Suspension) 500 mg GT Q4H PRN PRN Reason: Fever >101 Stop: 11/26/16 02:38 Last Admin: 09/27/16 13:45 Dose: 500 mg Ascorbic Acid (Vitamin C) 500 mg GT DAILY [facility] Stop: 11/26/16 08:59 Last Admin: 10/03/16 08:17 Dose: 500 mg Dextrose/Sodium Chloride (D5-0.45ns) 1,000 mls @ 70 mls/hr IV .[id number] [facility] Stop: 11/26/16 10:11 Last Infusion: 10/02/16 06:18 Dose: Infused Meropenem 1 gm/ Sodium (Chloride) 100 mls @ 100 mls/hr IV Q12H [facility] Stop: 11/26/16 14:59 Last Admin: 10/03/16 03:35 Dose: 100 mls/hr Vancomycin HCl 1 gm/ Sodium (Chloride) 250 mls @ 165 mls/hr IV Q12H [facility] Stop: 12/02/16 05:59 Last Admin: 10/03/16 06:00 Dose: 165 mls/hr Lactobacillus Rhamnosus (Culturelle) 1 each PO DAILY [facility] Stop: 11/27/16 08:59 Last Admin: 10/03/16 08:17 Dose: 1 each Levetiracetam (Keppra) 500 mg GT BID [facility] Stop: 11/26/16 08:59 Last Admin: 10/03/16 08:17 Dose: 500 mg Lorazepam (Ativan) 1 mg GT BID PRN; Protocol PRN Reason: Anxiety Stop: 11/26/16 02:46 Memantine (Namenda) 5 mg GT DAILY [facility] Stop: 11/26/16 08:59 Last Admin: 10/03/16 08:18 Dose: 5 mg Mirtazapine (Remeron) 45 mg GT HS [facility] Stop: 11/26/16 20:59 Last Admin: 10/02/16 20:55 Dose: 45 mg Miscellaneous (Clinical Monitoring) 1 ea PRN PRN PRN Reason: MERREM RENAL DOSED Stop: 11/26/16 10:33 Miscellaneous (Probiotic Screen) 1 ea PRN PRN PRN Reason: PROTOCOL Stop: 11/26/16 10:36 Miscellaneous (Vancomycin Iv Per Pharmacy) 1 ea MC PRN [facility] Stop: 12/01/16 14:14 Morphine Sulfate (Morphine) 2 mg IVP Q4H PRN PRN Reason: SEVERE PAIN Stop: 12/01/16 16:36 Mupirocin (Bactroban Oint) 1 appl NS BID [facility] Stop: 10/05/16 17:01 Last Admin: 10/03/16 08:24 Dose: 1 appl Ondansetron HCl (Zofran) 4 mg IV Q6H PRN PRN Reason: Nausea / Vomiting Stop: 11/26/16 02:44 Zinc Sulfate (Zinc Sulfate) 220 mg GT DAILY [facility] Stop: 11/26/16 08:59 Last Admin: 10/03/16 08:17 Dose: 220 mg General: no acute distress, well developed, well nourished HEENT: atraumatic, normocephalic, EOMI Neck: supple, no thyromegaly Cardiovascular: S1S2, regular Lungs: clear to auscultation bilaterally, clear to percussion Abdomen: soft, no tender, no distended Extremities: other (left foot stage 4 wound.), no cyanosis, no clubbing, no edema Neurological: awake, alert - Procedures Procedures: Procedures Procedure Code Date DRAINAGE OF SKIN ABSCESS 52449 10/09/14 OTHER SKIN & SUBQ I D 86.04 10/09/14 Infectious Disease Assmt/Plan - Problem List Patient Problems: All Active Problems Cellulitis, gluteal, right (Acute) L03.317 Combative behavior (Acute 02/10/15) R46.89 - Assessment Assessment: 1. Sepsis. 2. Complicated UTI. ESBL Pos E coli infection. 3. Leukocytosis. 4. Dementia 5. Left sided hydronephrosis. 6. bilateral foot ulcers worse in left. osteomyelitis of the left foot, 1st metatarsal with adjacent open stage 4 wound. - Plan Plan: Will continue meropenem for 6 weeks. add vancO IV for 6 weeks, aggessive wound care. may transfer to LTAC Nutritional Asmnt/Malnutr-PDOC - Dietary Evaluation Malnutrition Findings (Please click <Entered> for more info): Nutritional Asmnt/Malnutrition Start: 09/27/16 15: 19 Text: Status: Complete Freq: Document 09/27/16 19:47 [facility] (Rec: 09/27/16 19:58 [facility] [id number]) Nutritional Asmnt/Malnutrition Patient General Information Nutritional Screening Consult Diagnosis Sepsis, complicated UTI Pertinent Medical Hx/Surgical Hx Advanced dementia, seizure disorders, old CVA with late affect, recent hx foot osteomyelitis, dysphagia, tube feeding, psychiatric disorders Subjective Information Nutrition Consult for caleb scale 10 and pressure ulcers received and completed. Pt is a 66-year-old female from [facility] admitted with chief complaint of fever and tachycardia. Tube feeding started today at 20 ml/hr and slowly increasing to goal rate . Pt is tolerating tube feeding well with no residuals . Current Diet Order/ Nutrition Support Fibersource HN at 55 ml/hr continuous = 1584kcals, 71gm protein, 1069ml H2O Patient / S.O Can't verbalize diet edu Pertinent Medications Vitamin C, D5-0.45 ns, Culturelle, Meropenem, Morphine, Zofran, Zinc Sulfate Pertinent Labs (09/27) Na 150H, BUN 70H ( improved) Nutritional Hx/Data Height 1.63 m Height (Calculated Centimeters) 162.6 Current Weight (lbs) 62.369 kg Weight (Calculated Kilograms) 62.4 Weight (Calculated Grams) 84041.0 [place] Body Weight 120 % [place] Body Weight 115 Weight Status Approriate GI Symptoms GI Symptoms None Difficult in: Swallowing Food Allergies No Skin Integrity/Comment: Caleb 8. Right foot, right and left 5th metatarsal head pressure ulcers. Estimated Nutritional Goals BEE in Kcals: Using Current wt Calories/Kcals/Kg Based on current body wt 62.5 kg with consideration of sepsis Kcals Calculated 5810-5372 kcals/day (30-35 kcals/kg) Protein: Using Current wt Protein g/kg: Based on current body wt 62.5 kg with consideration of sepsis Protein Calculated 75-94 gm/day (1.2-1.5 gm/kg) Fluid: ml 1875 ml/kg (30 ml/kg) or per MD/DO Nutritional Problem 1. Problem Problem Increased energy needs related to Etiology increased metabolic demands with physiological stress as evidenced by Signs/Symptoms: dx sepsis. Malnutrition Alert Is there a minimum of two criteria No selected? Query Text:Check all the applicable criteria. A minimum of two criteria are recommended for diagnosis of either severe or non-severe malnutrition. Malnutrition Related to Morbid Obesity Malnutrition related to morbid obesity No Intervention/Recommendation Recommendations by RD Increase Calorie Intake Comments 1. Recommend increase Fibersource HN to goal rate of 65 ml/hr to better meet estimated nutritional needs. Tube feeding to provide 1872 kcals, 84 gm protein, and 1264 ml free water per day. 2. Consider discontinuing zinc sulfate supplementation as tube feeding is adequate to meet mineral needs. Expected Outcomes/Goals Expected Outcomes/Goals Provide pt with 100% of estimated nutritional needs for conservation of lean muscle mass and promote wound healing. Physician Parameters for PEM Normal Weight % 90% - 110% (Normal) Body Mass Index (BMI) 19 - 24 (Normal)
[2016-10-04] MEDS: Meropenem 1 GM in Sodium Chloride 0.9% 100 ML IV SCH ×2 (03:12→14:24)
[2016-10-04 07:37] LABS: % BASOPHILS 0.1 % (0.0-2.0); % EOSINOPHILS 5.7 % (0.0-5.0); % LYMPHOCYTES 16.2 % (20.0-50.0); % MONOCYTES 9.3 % (2.0-10.0); % NEUTROPHILS 68.7 % (40.0-80.0); ANION GAP 7.9 (7.0-16.0); BUN - UREA NITROGEN 16 mg/dL (7-25); CALCIUM SERUM 8.5 mg/dL (8.6-10.3); CHLORIDE 108 mEq/L (98-107); CREATININE - SERUM 0.5 mg/dL (0.6-1.2); GLUCOSE 129 mg/dL (70-105); HEMATOCRIT 31.2 % (35.0-45.0); HEMOGLOBIN 10.4 gm/dL (11.7-16.1); MEAN CELL VOLUME 85.2 fl (81-100); MEAN CORPUSCULAR HEMOGLOBIN 28.5 pg (27.0-31.0); MEAN CORPUSCULAR HGB CONC 33.4 pg (28.0-36.0); NEUTROPHILE ABSOLUTE 6.1 Th/cmm (1.8-8.0); PLATELET COUNT 227 Th/cmm (150-400); POTASSIUM SERUM 3.9 mEq/L (3.5-5.1); RED BLOOD COUNT 3.66 Mil/cmm (3.80-5.20); RED CELL DISTRIBUTION WIDTH 14.1 % (11.5-20.0); SODIUM SERUM 137 mEq/L (136-145); WHITE BLOOD COUNT 8.8 Th/cmm (4.8-10.8)
[2016-10-04] MEDS: Levetiracetam 500 mg/5mL 5mL UDC GT SCH ×2 (08:14→16:08)
[2016-10-04] MEDS: Ascorbic Acid 500 mg/5 mL UDC GT SCH (08:14)
[2016-10-04] MEDS: Multivitamin w/ Minerals Tab GT SCH (08:15)
[2016-10-04] MEDS: Lactobacillus Rhamnosus 10 Billion CFU Capsule PO SCH (08:15)
[2016-10-04] MEDS: Venelex 60gm Tube TP SCH (09:00)
[2016-10-04] MEDS: D5-0.45NS 1,000 ML IV SCH (14:24)
--- NOTE | 2016-10-04 18:06 | General Progress Note ---
Subjective - Review of Systems Service Date: 10/04/16 Subjective: Patient seen and examined no new concern Objective - Results Result Diagrams: 10/04/16 06:48 10/04/16 06:48 Recent Labs: Laboratory Last Values WBC 8.8 Th/cmm (4.8-10.8) 10/04/16 06:48 RBC 3.66 Mil/cmm (3.80-5.20) L 10/04/16 06:48 Hgb 10.4 gm/dL (11.7-16.1) L 10/04/16 06:48 Hct 31.2 % (35.0-45.0) L 10/04/16 06:48 MCV 85.2 fl (81-100) 10/04/16 06:48 MCH 28.5 pg (27.0-31.0) 10/04/16 06:48 MCHC Differential 33.4 pg (28.0-36.0) 10/04/16 06:48 RDW 14.1 % (11.5-20.0) 10/04/16 06:48 Plt Count 227 Th/cmm (150-400) 10/04/16 06:48 MPV 10.0 fl 10/04/16 06:48 Neutrophils % 68.7 % (40.0-80.0) 10/04/16 06:48 Band Neutrophils % 2 % (0-10) 09/27/16 05:27 Lymphocytes % 16.2 % (20.0-50.0) L 10/04/16 06:48 Monocytes % 9.3 % (2.0-10.0) 10/04/16 06:48 Eosinophils % 5.7 % (0.0-5.0) H 10/04/16 06:48 Basophils % 0.1 % (0.0-2.0) 10/04/16 06:48 Neutrophils (Manual) 85 % (40-80) H 09/27/16 05:27 Lymphocytes 8 % (20-50) L 09/27/16 05:27 Monocytes 5 % (2-10) 09/27/16 05:27 Platelet Estimate ADEQUATE (NORMAL) 09/27/16 05:27 Platelet Morphology NORMAL (NORMAL) 09/27/16 05:27 RBC Morph Micro Appear NORMAL (NORMAL) 09/27/16 05:27 ESR 118 mm/hr (0-30) H 09/30/16 06:25 Sodium 137 mEq/L (136-145) 10/04/16 06:48 Potassium 3.9 mEq/L (3.5-5.1) 10/04/16 06:48 Chloride 108 mEq/L (98-107) H 10/04/16 06:48 Carbon Dioxide 25.0 mEq/L (21.0-31.0) 10/04/16 06:48 Anion Gap 7.9 (7.0-16.0) 10/04/16 06:48 BUN 16 mg/dL (7-25) 10/04/16 06:48 Creatinine 0.5 mg/dL (0.6-1.2) L 10/04/16 06:48 Est GFR ( Amer) > 60.0 ml/min (>90) 10/04/16 06:48 Est GFR (Non-Af Amer) > 60.0 ml/min 10/04/16 06:48 BUN/Creatinine Ratio 32.0 10/04/16 06:48 Glucose 129 mg/dL (70-105) H 10/04/16 06:48 Whole Bld Lactic Acid 1.79 mmol/L (0.60-1.99) 09/26/16 22:35 Calcium 8.5 mg/dL (8.6-10.3) L 10/04/16 06:48 C-Reactive Protein 11.8 mg/dL (0.0-0.9) H 09/28/16 04:50 Lipase 17 U/L (11-82) 09/26/16 22:35 Urine Source [place] 09/28/16 05:30 Urine Color YELLOW 09/28/16 05:30 Urine Clarity SLIGHT CLOUDY (CLEAR) 09/28/16 05:30 Urine pH 6.0 (4.6 - 8.0) 09/28/16 05:30 Ur Specific [place] 1.020 (1.005-1.030) 09/28/16 05:30 Urine Protein 100 mg/dL (NEGATIVE) H 09/28/16 05:30 Urine Glucose (UA) NEGATIVE mg/dL (NEGATIVE) 09/28/16 05:30 Urine Ketones NEGATIVE mg/dL (NEGATIVE) 09/28/16 05:30 Urine Blood LARGE (NEGATIVE) H 09/28/16 05:30 Urine Nitrate NEGATIVE (NEGATIVE) 09/28/16 05:30 Urine Bilirubin NEGATIVE (NEGATIVE) 09/28/16 05:30 Urine Ictotest NEGATIVE (NEGATIVE) 09/26/16 23:00 Urine Urobilinogen 0.2 E.U./dL (0.2 - 1.0) 09/28/16 05:30 Ur Leukocyte Esterase MODERATE (NEGATIVE) H 09/28/16 05:30 Urine RBC 50-100 /hpf (0-5) H 09/28/16 05:30 Urine WBC 25-50 /hpf (0-5) H 09/28/16 05:30 Ur Epithelial Cells FEW /lpf (FEW) 09/28/16 05:30 Urine Bacteria FEW /hpf (NONE SEEN) 09/28/16 05:30 Ur Oval Fat Bodies /hpf (NONE SEEN) 09/26/16 23:00 Vancomycin Trough 12.4 ug/mL (10-20) 10/03/16 05:06 - Physical Exam Vitals and I&O: Vital Signs Temp 98.4 F 10/04/16 16:38 Pulse 105 10/04/16 16:38 Resp 18 10/04/16 16:38 BP 114/64 10/04/16 16:38 Pulse Ox 95 10/04/16 16:38 Intake & Output 10/03/16 10/04/16 10/04/16 18:59 06:59 18:59 Intake Total 250 1110 250 Output Total 1200 Balance 250 -90 250 Weight (lbs) 62.641 kg Intake: Intake, IV Amount 250 450 250 Meropenem 1 gm In Sodium 200 Chloride 0.9% 100 ml @ 100 mls/hr IV Q12H [facility] Rx #:[id number] Vancomycin HCl 1 gm In 250 250 250 Sodium Chloride 0.9% 250 ml @ 165 mls/hr IV Q12H [facility] Rx#:[id number] Tube Feeding 660 Output: Urine 1200 Active Medications: Current Medications Acetaminophen (Tylenol 650mg/20.3ml Suspension) 500 mg GT Q4H PRN PRN Reason: Fever >101 Stop: 11/26/16 02:38 Last Admin: 09/27/16 13:45 Dose: 500 mg Ascorbic Acid (Vitamin C) 500 mg GT DAILY [facility] Stop: 11/26/16 08:59 Last Admin: 10/04/16 08:14 Dose: 500 mg Dextrose/Sodium Chloride (D5-0.45ns) 1,000 mls @ 70 mls/hr IV .[id number] MIGUE Stop: 11/26/16 10:11 Last Admin: 10/04/16 14:24 Dose: 70 mls/hr Meropenem 1 gm/ Sodium (Chloride) 100 mls @ 100 mls/hr IV Q12H MIGUE Stop: 11/26/16 14:59 Last Admin: 10/04/16 14:24 Dose: 100 mls/hr Vancomycin HCl 1 gm/ Sodium (Chloride) 250 mls @ 165 mls/hr IV Q12H MIGUE Stop: 12/02/16 05:59 Last Infusion: 10/04/16 07:04 Dose: Infused Lactobacillus Rhamnosus (Culturelle) 1 each PO DAILY MIGUE Stop: 11/27/16 08:59 Last Admin: 10/04/16 08:15 Dose: 1 each Levetiracetam (Keppra) 500 mg GT BID [facility] Stop: 11/26/16 08:59 Last Admin: 10/04/16 16:08 Dose: 500 mg Memantine (Namenda) 5 mg GT DAILY MIGUE Stop: 11/26/16 08:59 Last Admin: 10/04/16 08:14 Dose: 5 mg Mirtazapine (Remeron) 45 mg GT HS [facility] Stop: 11/26/16 20:59 Last Admin: 10/03/16 20:13 Dose: 45 mg Miscellaneous (Clinical Monitoring) 1 ea PRN PRN PRN Reason: MERREM RENAL DOSED Stop: 11/26/16 10:33 Miscellaneous (Probiotic Screen) 1 ea PRN PRN PRN Reason: PROTOCOL Stop: 11/26/16 10:36 Miscellaneous (Vancomycin Iv Per Pharmacy) 1 ea PRN MIGUE Stop: 12/01/16 14:14 Morphine Sulfate (Morphine) 2 mg IVP Q4H PRN PRN Reason: SEVERE PAIN Stop: 12/01/16 16:36 Mupirocin (Bactroban Oint) 1 appl NS BID MIGUE Stop: 10/05/16 17:01 Last Admin: 10/04/16 16:08 Dose: 1 appl Ondansetron HCl (Zofran) 4 mg IV Q6H PRN PRN Reason: Nausea / Vomiting Stop: 11/26/16 02:44 Zinc Sulfate (Zinc Sulfate) 220 mg GT DAILY MIGUE Stop: 11/26/16 08:59 Last Admin: 10/04/16 08:15 Dose: 220 mg Cardiovascular: Regular rate Lungs: Clear to auscultation Abdomen: Soft, no Tender Extremities: Other (bilateral feet wound noted) - Procedures Procedures: Procedures Procedure Code Date DRAINAGE OF SKIN ABSCESS 70491 10/09/14 OTHER SKIN & SUBQ I D 86.04 10/09/14 Assessment/Plan - Problem List Patient Problems: All Active Problems Cellulitis, gluteal, right (Acute) L03.317 Combative behavior (Acute 02/10/15) R46.89 - Assessment Assessment: Sepsis improving Osteomylitis foot Complicated UTI with right hydronephrosis Hematuria better 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 dementia Dysphagia - Plan Plan: LTAC DC plan for today Continue current treatment plan DC plan discussed with the nursing staff Nutritional Asmnt/Malnutr-PDOC - Dietary Evaluation Malnutrition Findings (Please click <Entered> for more info): Nutritional Asmnt/Malnutrition Start: 09/27/16 15: 19 Text: Status: Complete Freq: Document 09/27/16 19:47 [facility] (Rec: 09/27/16 19:58 [facility] [id number]) Nutritional Asmnt/Malnutrition Patient General Information Nutritional Screening Consult Diagnosis Sepsis, complicated UTI Pertinent Medical Hx/Surgical Hx Advanced dementia, seizure disorders, old CVA with late affect, recent hx foot osteomyelitis, dysphagia, tube feeding, psychiatric disorders Subjective Information Nutrition Consult for caleb scale 10 and pressure ulcers received and completed. Pt is a 66-year-old female from [facility] admitted with chief complaint of fever and tachycardia. Tube feeding started today at 20 ml/hr and slowly increasing to goal rate . Pt is tolerating tube feeding well with no residuals . Current Diet Order/ Nutrition Support Fibersource HN at 55 ml/hr continuous = 1584kcals, 71gm protein, 1069ml H2O Patient / S.O Can't verbalize diet edu Pertinent Medications Vitamin C, D5-0.45 ns, Culturelle, Meropenem, Morphine, Zofran, Zinc Sulfate Pertinent Labs (09/27) Na 150H, BUN 70H ( improved) Nutritional Hx/Data Height 1.63 m Height (Calculated Centimeters) 162.6 Current Weight (lbs) 62.369 kg Weight (Calculated Kilograms) 62.4 Weight (Calculated Grams) 29335.0 [place] Body Weight 120 % [place] Body Weight 115 Weight Status Approriate GI Symptoms GI Symptoms None Difficult in: Swallowing Food Allergies No Skin Integrity/Comment: Caleb 8. Right foot, right and left 5th metatarsal head pressure ulcers. Estimated Nutritional Goals BEE in Kcals: Using Current wt Calories/Kcals/Kg Based on current body wt 62.5 kg with consideration of sepsis Kcals Calculated 4424-8165 kcals/day (30-35 kcals/kg) Protein: Using Current wt Protein g/kg: Based on current body wt 62.5 kg with consideration of sepsis Protein Calculated 75-94 gm/day (1.2-1.5 gm/kg) Fluid: ml 1875 ml/kg (30 ml/kg) or per MD/DO Nutritional Problem 1. Problem Problem Increased energy needs related to Etiology increased metabolic demands with physiological stress as evidenced by Signs/Symptoms: dx sepsis. Malnutrition Alert Is there a minimum of two criteria No selected? Query Text:Check all the applicable criteria. A minimum of two criteria are recommended for diagnosis of either severe or non-severe malnutrition. Malnutrition Related to Morbid Obesity Malnutrition related to morbid obesity No Intervention/Recommendation Recommendations by RD Increase Calorie Intake Comments 1. Recommend increase Fibersource HN to goal rate of 65 ml/hr to better meet estimated nutritional needs. Tube feeding to provide 1872 kcals, 84 gm protein, and 1264 ml free water per day. 2. Consider discontinuing zinc sulfate supplementation as tube feeding is adequate to meet mineral needs. Expected Outcomes/Goals Expected Outcomes/Goals Provide pt with 100% of estimated nutritional needs for conservation of lean muscle mass and promote wound healing. Physician Parameters for PEM Normal Weight % 90% - 110% (Normal) Body Mass Index (BMI) 19 - 24 (Normal)
== END 2016-10-04 19:30 | DRG 872 ==
LOC: ER 22:15 → ICU 09-27 01:50 → TELE 09-28 17:00 → MSI 09-29 13:33
PROVIDERS: ADMIT Family Medicine; ATTEND Family Medicine
DX: A41.9 Sepsis, unspecified organism (principal); N17.9 Acute kidney failure, unspecified; N13.30 Unspecified hydronephrosis; R13.10 Dysphagia, unspecified; F03.90 Unspecified dementia, unspecified severity, without behavioral disturbance, psychotic disturbance, mood disturbance, and anxiety; I69.30 Unspecified sequelae of cerebral infarction; Z93.1 Gastrostomy status; M86.8X7 Other osteomyelitis, ankle and foot; N39.0 Urinary tract infection, site not specified; G40.909 Epilepsy, unspecified, not intractable, without status epilepticus; F29 Unspecified psychosis not due to a substance or known physiological condition; E86.0 Dehydration; I25.10 Atherosclerotic heart disease of native coronary artery without angina pectoris; F41.9 Anxiety disorder, unspecified; R31.0 Gross hematuria; B96.22 Other specified Shiga toxin-producing Escherichia coli [E. coli] [STEC] as the cause of diseases classified elsewhere; Z79.82 Long term (current) use of aspirin; Z16.12 Extended spectrum beta lactamase (ESBL) resistance
CPT/HCPCS: 36415-UA; 71010-TC; 76770-TC; 78315-TC; 80048-TC; 80202-TC; 81001-TC; 83605; 83690-TC; 85007-TC; 85025-TC; 85027-TC; 85652-TC; 86141-TC; 87070-90; 87086-90; 94760; A9503; J0692; J0696; J2185; J2270; J2543; J3370; J7030; Z7610

== ENCOUNTER 2018-06-12 17:41 | Inpatient (IN) | payer MEDICARE, MEDICAID ==
--- NOTE | 2018-06-12 18:01 | ED Physician Chart ---
ED Chief Complaint/HPI - Patient Information Date Seen:: 06/12/18 Time Seen:: 17:54 Chief Complaint:: black stools History of Present Illness:: this is a 67 yo female sent from the nursing for evaluation and treatment of a possible gi bleed with black stool. she has a history dementia, cva dysphagia with a history of gi bleeding. Allergies:: Allergies Allergy/AdvReac Type Severity Reaction Status Date / Time No Known Allergies Allergy Verified 09/26/16 22:38 Historian:: EMS, Medical Records Review:: Nurse's Note Reviewed, Old Chart Reviewed, Transfer documents Reviewed ED Review of Systems - Review of Systems General/Constitutional: No fever, No chills, No weight loss, No weakness, No diaphoresis, No edema, No loss of appetite, Other (this patient is not able to give a review of systems.) Skin: No skin lesions, No rash, No bruising Head: No headache, No light-headedness Eyes: No loss of vision, No pain, No diplopia ENT: No earache, No nasal drainage, No sore throat, No tinnitus Neck: No neck pain, No swelling, No thyromegaly, No stiffness, No mass noted Cardio Vascular: No chest pain, No palpitations, No PND, No orthopnea, No edema Pulmonary: No SOB, No cough, No sputum, No wheezing GI: No nausea, No vomiting, No diarrhea, No pain, No melena, No hematochezia, No constipation, No hematemesis G/U: No dysuria, No frequency, No hematuria Musculoskeletal: No bone or joint pain, No back pain, No muscle pain Endocrine: No polyuria, No polydipsia Psychiatric: No prior psych history, No depression, No anxiety, No suicidal ideation Hematopoietic: No bruising, No lymphadenopathy Allergic/Immuno: No urticaria, No angioedema Neurological: No syncope, No focal symptoms, No weakness, No paresthesia, No headache, No seizure, No dizziness, No confusion, No vertigo ED Past Medical History - Past Medical History Obtainable: Yes Past Medical History: CVA/TIA, Dyslipidemia, PUD/GERD, Seizures, Dementia, Other (peptic ulcer disease) Family History: None Social History: Non Smoker, No Alcohol, No Drug Use, Care Facility Surgical History: PEG/GTube Psychiatricy History: Dementia Medication: Reviewed Family Medical History - Family Member Mother History Unknown: Yes ED Physical Exam - Physical Examination General/Constitutional: Awake, Well-developed, well-nourished, Alert, No distress, GCS 15, Non-toxic appearing, Ambulatory Head: Atraumatic Eyes: Lids, conjuctiva normal, PERRL, EOMI Skin: Nl inspection, No rash, No skin lesions, No ecchymosis, Well hydrated, No lymphadenopathy ENMT: External ears, nose nl, Nasal exam nl, Lips, teeth, gums nl Neck: Nontender, Full ROM w/o pain, No JVD, No nuchal rigidity, No bruit, No mass, No stridor Respiratory: Nl effort/Exclusion, Clear to Auscultation, No Wheeze/Rhonchi/Rales Cardio Vascular: RRR, No murmur, gallop, rubs, NL S1 S2 GI: No tenderness/rebounding/guarding, No organomegaly, No hernia, Normal BS's, Nondistended, No mass/bruits, No McBurney tenderness Other GI comments:: g-tube noted and functioning : No CVA tenderness Extremities: No tenderness or effusion, Full ROM, normal strength in all extremities, No edema, Normal digits & nails Neuro/Psych: Alert/oriented, DTR's symmetric, Normal sensory exam, Normal motor strength, Judgement/insight normal, Mood normal, Normal gait, No focal deficits (spastic paralysis of all extremities except the left upper extremity. unable to speak and think.) Misc: Normal back, No paraspinal tenderness ED Labs/Radiology/EKG Results - Radiology Results Results: chest x-ray = nad - EKG Interpretations EKG Time:: 17:58 Rate & Rhythm: mdeh=587, sinus tach [place]: left ED Assessment - Assessment General Assessment: gi bleeding ED Septic Shock - . Is Septic Shock (SBP<90, OR Lactate>4 mmol\L) present?: No ED Reassessment (Disposition) - Reassessment Reassessment:: dr davidson will care for this patient starting at 1900 hrs Reassessment Condition:: Unchanged - Diagnosis Diagnosis:: gi bleeding - Patient Disposition Discharge/Transfer:: Acute Care w/in this hosp
[2018-06-12 18:13] LABS: HEMATOCRIT 42.2 % (41.0-60); HEMOGLOBIN 13.9 gm/dL (12-16); MEAN CELL VOLUME 92.2 fl (81-100); MEAN CORPUSCULAR HEMOGLOBIN 30.4 pg (27.0-31.0); MEAN PLATELET VOLUME 9.2 fl; PLATELET COUNT 216 Th/cmm (150-400); RED BLOOD COUNT 4.58 Mil/cmm (3.80-5.20); RED CELL DISTRIBUTION WIDTH 12.8 % (11.5-20.0); WHITE BLOOD COUNT 6.5 Th/cmm (4.8-10.8)
[2018-06-12] MEDS ORDERED: Sodium Chloride 0.45% 1,000 ML IV ONE (18:14)
[2018-06-12 18:27] LABS: INR 1.04 (0.5-1.4); PROTHROMBIN TIME (TEST) 10.8 SECONDS (9.5-11.5)
[2018-06-12 18:30] LABS: ALBUMIN 3.3 gm/dL (3.7-5.3); ALKALINE PHOSPHATASE 89 U/L (34-104); ANION GAP 13.1 (7.0-16.0); BILIRUBIN,TOTAL 0.5 mg/dL (0.3-1.0); BUN - UREA NITROGEN 21 mg/dL (7-25); CALCIUM SERUM 8.8 mg/dL (8.6-10.3); CARBON DIOXIDE 25.1 mEq/L (21.0-31.0); CHLORIDE 103 mEq/L (98-107); CREATININE - SERUM 0.7 mg/dL (0.6-1.2); GFR AFRICAN-AMERICAN > 60.0 ml/min (>90); GFR NON AFRICAN-AMERICAN > 60.0 ml/min; GLUCOSE 118 mg/dL (70-105); POTASSIUM SERUM 4.2 mEq/L (3.5-5.1); SGOT 19 U/L (13-39); SGPT/ALT 12 U/L (7-52); SODIUM SERUM 137 mEq/L (136-145); TOTAL PROTEIN,SERUM 6.6 gm/dL (6.0-8.3)
[2018-06-12 18:35] LABS: EOSINOPHIL 6 % (0-5); LYMPHOCYTE 16 % (20-50); MONOCYTE 8 % (2-10); NEUTROPHILS 70 % (40-80)
[2018-06-12] MEDS ORDERED: cefTRIAXone 1 GM in Sodium Chloride 0.9% 50 ML IV ONE (18:48)
[2018-06-12] MEDS ORDERED: Acetaminophen 500 MG TAB PO ONE (18:48)
[2018-06-12 18:52] LABS: URINE SOURCE CATH
[2018-06-12] MEDS ORDERED: Acetaminophen 500 MG TAB ONE (18:56)
[2018-06-12 18:58] LABS: URINE BILIRUBIN NEGATIVE (NEGATIVE); URINE BLOOD LARGE (NEGATIVE); URINE GLUCOSE (UA) NEGATIVE (NEGATIVE); URINE KETONE TRACE mg/dL (NEGATIVE); URINE LEUKOCYTE ESTERASE LARGE (NEGATIVE); URINE MICROSCOPIC INDICATED? YES; URINE NITRATE POSITIVE (NEGATIVE); URINE PH 8.5 (4.6 - 8.0); URINE PROTEIN 100 mg/dL (NEGATIVE); URINE UROBILINOGEN 0.2 E.U./dL (0.2 - 1.0)
[2018-06-12 19:05] LABS: CHOLESTEROL 109 mg/dL (<200); HDL -HIGH DENSITY LIPOPROTEIN 36 mg/dL (23-92); TRIGLYCERIDES 126 mg/dL (<150)
[2018-06-12 19:11] LABS: URINE CLARITY HAZY (CLEAR); URINE COLOR YELLOW
[2018-06-12] MEDS ORDERED: Sodium Chloride 0.9% 1,000 ML IV ONE ×2 (19:21→20:08)
[2018-06-12 19:35] LABS: URINE BACTERIA MANY /hpf (NONE SEEN); URINE EPITHELIAL CELLS MODERATE /lpf (FEW); URINE WBC 25-50 /hpf (0-5)
[2018-06-12 23:53] VITALS: BP 124/77
[2018-06-13] MEDS ORDERED: Levetiracetam 500 mg/5mL 5mL UDSyr *for ORAL USE ONLY GT SCH (01:30)
[2018-06-13] MEDS ORDERED: Levetiracetam 500 mg/5mL 5mL UDSyr *for ORAL USE ONLY GT ONE (01:30)
[2018-06-13 06:56] LABS: HEMATOCRIT 38.6 % (41.0-60); HEMOGLOBIN 13.1 gm/dL (12-16); MEAN CELL VOLUME 91.9 fl (81-100); MEAN CORPUSCULAR HEMOGLOBIN 31.2 pg (27.0-31.0); MEAN PLATELET VOLUME 9.6 fl; PLATELET COUNT 176 Th/cmm (150-400); RED CELL DISTRIBUTION WIDTH 12.8 % (11.5-20.0)
[2018-06-13 07:21] LABS: BUN - UREA NITROGEN 15 mg/dL (7-25); CALCIUM SERUM 8.5 mg/dL (8.6-10.3); CARBON DIOXIDE 23.8 mEq/L (21.0-31.0); CHLORIDE 109 mEq/L (98-107); CREATININE - SERUM 0.6 mg/dL (0.6-1.2); GFR AFRICAN-AMERICAN > 60.0 ml/min (>90); GFR NON AFRICAN-AMERICAN > 60.0 ml/min; GLUCOSE 88 mg/dL (70-105); POTASSIUM SERUM 3.8 mEq/L (3.5-5.1); SODIUM SERUM 140 mEq/L (136-145)
[2018-06-13 08:07] LABS: WHITE BLOOD COUNT 5.1 Th/cmm (4.8-10.8)
[2018-06-13] MEDS ORDERED: Non-Formulary Item 1 EA (Levetiracetam [Keppra] 500 MG) GT SCH (08:15)
[2018-06-13] MEDS ORDERED: VALPROIC ACID 250 MG GT SCH (08:15)
[2018-06-13 08:53] LABS: BAND NEUTROPHILE 1 % (0-10); BASOPHIL 0 % (0-3); EOSINOPHIL 3 % (0-5); LYMPHOCYTE 15 % (20-50); MONOCYTE 14 % (2-10); NEUTROPHILS 67 % (40-80); PLATELET ESTIMATE ADEQUATE (NORMAL)
[2018-06-13] MEDS ORDERED: MULTIVIT GT SCH (09:00)
[2018-06-13] MEDS ORDERED: FERROUS FUM GT SCH (09:00)
[2018-06-13] MEDS ORDERED: NYSTATIN 100000 UNITS/GM POWD TP SCH (09:00)
[2018-06-13] MEDS ORDERED: MINERALS GT SCH (09:00)
[2018-06-13] MEDS ORDERED: Non-Formulary Item 1 EA (Dextran 70/Hypromellose [Artificial Tears] 1 DROP) EACH EYE SCH (09:00)
[2018-06-13] MEDS ORDERED: Non-Formulary Item 1 EA (Ascorbic Acid [Vitamin C] 500 MG) GT SCH (09:00)
--- NOTE | 2018-06-13 09:14 | Diagnostic Imaging Report ---
Portable chest x-ray Time: 184 History: Weakness Allowing for portable technique the heart size is normal. No focal pulmonary parenchymal processes. No hilar or mediastinal abnormalities. Impression: No acute abnormalities.
[2018-06-13] MEDS: Levetiracetam 500 mg/5mL 5mL UDSyr *for ORAL USE ONLY GT SCH ×2 (09:15→21:18)
[2018-06-13] MEDS: Multivitamin w/ Minerals Tab GT SCH (09:15)
[2018-06-13] MEDS: Aspirin 81mg Chewable Tab GT SCH (09:15)
[2018-06-13] MEDS: NYSTATIN 100000 UNITS/GM POWD TP SCH ×2 (09:16→16:17)
--- NOTE | 2018-06-13 09:17 | Diagnostic Imaging Report ---
Exam: CT examination abdomen pelvis. HISTORY: Febrile Total DLP equals 432 CTDI equals 9.7 Findings: Multiple contiguous thin section of the abdomen pelvis obtained from a lower thorax to the pubic symphysis without the administration of oral or intravenous contrast material. The study correlated with prior exam of 09/30/2016. The study demonstrates normal aeration of lung parenchyma the bases. There is evidence for hepatosplenomegaly. The gallbladder is free of calculi. The right kidney demonstrates hydronephrosis with the multiple calcifications suggestive of renal stones The left kidney is intact. The study is degraded by motion artifact and patient inability to cooperate. There is evidence of diverticular disease without diverticulitis. The urinary bladder is distended. No free fluid is noted. Bony structures demonstrate no evidence for lytic or blastic lesions IMPRESSION: Limited exam due to motion artifact and patient inability to cooperate Hepatosplenomegaly Right-sided hydronephrosis with multiple calculi. Gastrostomy tube in stomach Distended gallbladder Diverticulosis. Distended urinary bladder.
[2018-06-13] MEDS: Artificial Tear Ophth Oint 3.5 Gm Tube EACH EYE SCH ×2 (09:49→16:17)
[2018-06-13] MEDS: Meropenem 500 MG in Sodium Chloride 0.9% 100 ML IV SCH ×2 (13:33→21:18)
[2018-06-13] MEDS ORDERED: cefTRIAXone 1 GM in Sodium Chloride 0.9% 50 ML IV SCH (19:00)
--- NOTE | 2018-06-14 01:58 | History & Physical ---
ADMIT DATE: 06/12/2018 CHIEF COMPLAINT: Black tarry stool. HISTORY OF PRESENT ILLNESS: This is a 67-year-old female, lives in nursing facility with underlying history of dysphagia, dementia, old cerebrovascular accident, seizure disorders, who was noticed to have a black tarry stool. She was brought into Emergency Room for evaluation. During my evaluation, the patient was noted to have complicated UTI with tachycardia, so the patient admitted for further treatments. The patient's hemoglobin noted to be within normal range upon admission. No hematemesis. No fever, no chills. Negative for any CT abdomen findings or any diverticulitis or colitis. CT abdomen and pelvis shows right-sided hydronephrosis with some calculi. PAST MEDICAL HISTORY: Seizure disorder, old CVA with late effect, dysphagia, dementia, psychiatric disorders. PAST SURGICAL HISTORY: G-tube. FAMILY HISTORY: Unknown. SOCIAL HISTORY: [facility] resident. REVIEW OF SYSTEMS: Unobtainable. PHYSICAL EXAMINATION: VITAL SIGNS: Temperature 97.5, pulse 106, respirations 20, blood pressure 102/64. HEART: Tachycardia. LUNGS: Clear. ABDOMEN: Soft, no distention, nontender. NEUROLOGIC: The patient is nonverbal, does not follow commands. ASSESSMENT: 1. Urinary tract infection. 2. Right hydronephrosis. 3. Dysphagia, on tube feed. 4. Dementia. PLAN: The patient admitted to tele unit. The patient is on IV antibiotic. ID consult. Blood culture and urine culture obtained. Monitor H and H. Resume feedings. Home medication has been continued. Plan of care discussed with nursing staff. Urology was consulted because of the patient's hydronephrosis. JOB# [id number] [place]
[2018-06-14] MEDS: Meropenem 500 MG in Sodium Chloride 0.9% 100 ML IV SCH ×3 (05:35→21:41)
[2018-06-14] MEDS: Levetiracetam 500 mg/5mL 5mL UDSyr *for ORAL USE ONLY GT SCH ×2 (08:40→21:41)
[2018-06-14] MEDS: NYSTATIN 100000 UNITS/GM POWD TP SCH ×2 (08:40→16:14)
[2018-06-14] MEDS: Aspirin 81mg Chewable Tab GT SCH (08:40)
[2018-06-14] MEDS: Artificial Tear Ophth Oint 3.5 Gm Tube EACH EYE SCH ×2 (08:40→16:14)
[2018-06-14] MEDS: Multivitamin w/ Minerals Tab GT SCH (08:40)
--- NOTE | 2018-06-14 10:05 | Diagnostic Imaging Report ---
Renal ultrasound HISTORY: Renal calculi, pain The right kidney measures 10.2 x 4.3 x 5.5 cm. A 1.3 cm echogenic density is noted in the lower medullary region. This corresponds to a calculus noted on the earlier ultrasound exam of June 12, 2018. No hydronephrosis is appreciated at this time. The left kidney measures 10.6 x 4.1 x 4.2 cm. No focal lesions. No hydronephrosis. Faint low-level intraluminal echoes seen within the urinary bladder. IMPRESSION: 1. Echogenic density within the lower medullary region of the right kidney consistent with the CT documented calculus. No associated hydronephrosis 2. No focal lesions or hydronephrosis involving the left kidney 3. Faint low-level intraluminal echoes within the urinary bladder. The finding should be correlated clinically and with urinalysis.
--- NOTE | 2018-06-14 12:09 | Consultation ---
DATE OF CONSULTATION: 06/13/2018 INFECTIOUS DISEASE CONSULTATION REFERRING PHYSICIAN: Juvenal Montgomery M.D. REASON FOR CONSULTATION: Urinary tract infection, pyelonephritis. HISTORY OF PRESENT ILLNESS: The patient is a 67-year-old female with a past medical history of severe dementia, CVA, dyslipidemia, peptic ulcer disease, seizure disorder, history of UTI, I believe ESBL E. coli UTI, brought in from nursing facility for passing black stool and suspected GI bleed. On initial evaluation, the patient's temperature was 102.4 degrees Fahrenheit and WBC count was 6500. Other vitals suggested tachycardia with a pulse rate of 125. Sepsis was diagnosed. Sepsis workup was performed and urinalysis showed pyuria and bacteriuria. Stool for occult blood came positive. CT scan of the abdomen and pelvis suggested a right-sided hydronephrosis with the multiple calculi. The patient also found to have distended gallbladder. PAST MEDICAL HISTORY: Includes CVA, dyslipidemia, peptic ulcer disease, seizure disorder, dementia. FAMILY HISTORY: Noncontributory. SOCIAL HISTORY: The patient lives at nursing facility. No history of smoking, alcohol or drug use. PAST SURGICAL HISTORY: Includes G-tube placement. PSYCHIATRIC HISTORY: Dementia. MEDICATIONS: As per medication reconciliation sheet. ANTIBIOTIC: The patient is receiving meropenem. ALLERGIES: The patient is NKDA. FAMILY HISTORY: Unremarkable. REVIEW OF SYSTEMS: The patient is a poor historian, unable to give any history, but the patient had a fever on presentation. PHYSICAL EXAMINATION: VITAL SIGNS: Current vital signs shows temperature is 97.5 degrees Fahrenheit, pulse 106, respirations 20, blood pressure 102/64. GENERAL: The patient is comfortable lying in the bed, not in acute distress. HEENT: Head is normocephalic, atraumatic. Oral cavity moist, pink tongue. Eyes: No pallor, no icterus. PERRLA, EOMI. NECK: Supple, no JVD, no bruit. Trachea midline. CHEST: Bilateral breath sounds. No crackles or wheezing. HEART: S1, S2 within normal limits. Regular rhythm. No murmur or gallop. ABDOMEN: Soft, nontender, nondistended. Bowel sounds present. G-tube site is clear. EXTREMITIES: No cyanosis, no clubbing, no edema. NEUROLOGIC: Opens eyes, alert. Slow to respond. LABORATORY DATA: Current lab shows WBC count is 5100, hemoglobin 13.1, hematocrit 38.6, platelets are 176,000, neutrophil is 67%. INR is 1.04. Sodium is 140, potassium 3.8, chloride 109, bicarbonate is 24, BUN is 15, creatinine 0.6, glucose is 88. Urinalysis showed hazy urine with large blood, positive nitrite, large leukoesterase, WBC 25-50, many bacteria. Stool for occult blood is positive. Blood culture [address] scan of the abdomen and pelvis suggested a right-sided hydronephrosis with multiple stones. Distended gallbladder. G-tube in place. Diverticulosis. Distended urinary bladder. IMPRESSION: 1. Urinary tract infection, likely ESBL producing organism as the patient has history of ESBL positive Proteus organism infection in the past. 2. Hydronephrosis, right side. 3. May have neurogenic bladder. 4. Cerebrovascular accident. 5. Dementia. 6. History of peptic ulcer disease. 7. Hyperlipidemia. PLAN AND RECOMMENDATIONS: Continue meropenem and Urology consultation was called. Thank you, Dr. Juvenal Montgomery, for involving me in taking care of this patient. JOB# [id number]
--- NOTE | 2018-06-14 13:40 | Consultation ---
DATE OF CONSULTATION: 06/14/2018 REASON FOR CONSULTATION: The patient is seen for a hydronephrosis and kidney stones. HISTORY OF PRESENT ILLNESS: She was sent to the Emergency Room here from a [facility] for a possible GI bleed and black stools. During the workup, right hydronephrosis was noted with multiple stones in the kidney. The patient is unable to provide any history as she is nonverbal from a previous stroke. PAST MEDICAL HISTORY: Significant for dementia and stroke leaving her nonverbal. She is bedbound with severe contractures in the lower extremities and some in the upper extremities as well. She is G-tube dependent and she does have a history of GI problems in the past including bleeding. ALLERGIES: None. REVIEW OF SYSTEMS: There was no fever reported or weight loss. No significant skin rashes, but stiffness in the joints is reported. No headache or seizures noted. She did not have any chest pain, coughing or shortness of breath. No vomiting or diarrhea, but there was some concern about dark stools. She is incontinent without dysuria or hematuria. PHYSICAL EXAMINATION: GENERAL: She is difficult to arouse, very lethargic and does not communicate. VITAL SIGNS: Temperature 97.1, heart rate 66, blood pressure 107/63. She had a temperature of 102.4 on admission. After that, she has been afebrile. HEAD AND NECK: Normocephalic. Trachea central. Pupils reactive. No jaundice. Thyroid and lymph nodes not palpable. Carotid bruit absent. CHEST: Symmetrical. LUNGS: Clear. No rales or rhonchi. HEART: Sounds normal in sinus rhythm. No murmur. ABDOMEN: Soft. G-tube in place, functioning well, tolerating diet. No organomegaly, mass, or hernia. EXTREMITIES: Severely contracted, unable to examine without pedal edema or lymphadenopathy. NEUROLOGIC: Unable to test with significantly compromised higher functions and patient being nonverbal. LABORATORY DATA: White count 5.1, stable since admission. Hemoglobin 13.1 and also stable, platelets 176. PT/INR 1.0, PTT normal. Electrolytes are normal. BUN 15, creatinine 0.6, glucose 88 and 118. Urinalysis, large amount of blood with leukocytes, large amount of white and red cells and bacteria. Stool occult, blood in the stool is positive. Blood culture is negative. Renal ultrasound, no hydronephrosis and possible stones in the right lower pole of the kidney. A CT scan was overread as right hydronephrosis and was corrected by Dr. Griffiths after I discussed it with him that it was not necessarily a significant hydronephrosis. Similarly, the bladder distention that is reported is not measurable and therefore cannot be of any significant clinical importance. We need to do an ultrasound, but the ultrasound was already done and did not discuss the bladder. This makes it very difficult to interpret the imaging studies. There is a bunch of small stones or cluster of stones in the lower pole of the right kidney, but these are not causing any obstruction and there is no hydronephrosis of concern. Chest x-ray shows no acute abnormalities. IMPRESSION: 1. Possible urinary retention and bladder distention. We will recommend a Hassan catheter and to maintain it if the bladder shows more than 300 mL of urine. This would confirm a neurogenic bladder which the patient possibly has from being bedbound and having a stroke in the past. It may be best to leave the Hassan in if she does have retention to prevent future problems of infection and obstruction to the urinary tract. If the volume is less than 300, we will leave her without a catheter and keep the diapers on as before. 2. History of stroke with contractures. 3. History of dementia. The patient is nonverbal. HOME MEDICATIONS: Valproic acid, Namenda, Keppra, Aricept, aspirin, and vitamins. JOB# [id number]
--- NOTE | 2018-06-14 21:29 | General Progress Note ---
Subjective - Review of Systems Service Date: 06/14/18 Subjective: Patient seems in no distress afebrile Objective - Results Result Diagrams: 06/13/18 06:25 06/13/18 06:25 Recent Labs: Laboratory Last Values WBC 5.1 Th/cmm (4.8-10.8) D 06/13/18 06:25 RBC 4.20 Mil/cmm (3.80-5.20) 06/13/18 06:25 Hgb 13.1 gm/dL (12-16) 06/13/18 06:25 Hct 38.6 % (41.0-60) L 06/13/18 06:25 MCV 91.9 fl (81-100) 06/13/18 06:25 MCH 31.2 pg (27.0-31.0) H 06/13/18 06:25 MCHC Differential 34.0 pg (28.0-36.0) 06/13/18 06:25 RDW 12.8 % (11.5-20.0) 06/13/18 06:25 Plt Count 176 Th/cmm (150-400) 06/13/18 06:25 MPV 9.6 fl 06/13/18 06:25 Add Manual Diff YES 06/13/18 06:25 Band Neutrophils % 1 % (0-10) 06/13/18 06:25 Neutrophils (Manual) 67 % (40-80) 06/13/18 06:25 Lymphocytes 15 % (20-50) L 06/13/18 06:25 Monocytes 14 % (2-10) H 06/13/18 06:25 Eosinophils 3 % (0-5) 06/13/18 06:25 Basophils 0 % (0-3) 06/13/18 06:25 Platelet Estimate ADEQUATE (NORMAL) 06/13/18 06:25 RBC Morph Micro Appear NORMAL (NORMAL) 06/13/18 06:25 PT 10.8 SECONDS (9.5-11.5) 06/12/18 18:05 INR 1.04 (0.5-1.4) 06/12/18 18:05 PTT (Actin FS) 28.3 SECONDS (26.0-38.0) 06/12/18 18:05 Sodium 140 mEq/L (136-145) 06/13/18 06:25 Potassium 3.8 mEq/L (3.5-5.1) 06/13/18 06:25 Chloride 109 mEq/L (98-107) H 06/13/18 06:25 Carbon Dioxide 23.8 mEq/L (21.0-31.0) 06/13/18 06:25 Anion Gap 11.0 (7.0-16.0) 06/13/18 06:25 BUN 15 mg/dL (7-25) 06/13/18 06:25 Creatinine 0.6 mg/dL (0.6-1.2) 06/13/18 06:25 Est GFR ( Amer) > 60.0 ml/min (>90) 06/13/18 06:25 Est GFR (Non-Af Amer) > 60.0 ml/min 06/13/18 06:25 BUN/Creatinine Ratio 25.0 06/13/18 06:25 Glucose 88 mg/dL (70-105) 06/13/18 06:25 Calcium 8.5 mg/dL (8.6-10.3) L 06/13/18 06:25 Total Bilirubin 0.5 mg/dL (0.3-1.0) 06/12/18 18:05 AST 19 U/L (13-39) 06/12/18 18:05 ALT 12 U/L (7-52) 06/12/18 18:05 Alkaline Phosphatase 89 U/L (34-104) 06/12/18 18:05 Troponin I 0.01 ng/mL (0.01-0.05) 06/12/18 18:05 Total Protein 6.6 gm/dL (6.0-8.3) 06/12/18 18:05 Albumin 3.3 gm/dL (3.7-5.3) L 06/12/18 18:05 Globulin 3.3 gm/dL 06/12/18 18:05 Albumin/Globulin Ratio 1.0 (1.0-1.8) 06/12/18 18:05 Triglycerides 126 mg/dL (<150) 06/12/18 18:00 Cholesterol 109 mg/dL (<200) 06/12/18 18:00 LDL Cholesterol Direct 68 mg/dL (75-193) L 06/12/18 18:00 HDL Cholesterol 36 mg/dL (23-92) 06/12/18 18:00 TSH 1.04 uIU/ml (0.34-5.60) 06/12/18 18:05 Urine Source CATH 06/12/18 18:30 Urine Color YELLOW 06/12/18 18:30 Urine Clarity HAZY (CLEAR) 06/12/18 18:30 Urine pH 8.5 (4.6 - 8.0) 06/12/18 18:30 Ur Specific [place] 1.010 (1.005-1.030) 06/12/18 18:30 Urine Protein 100 mg/dL (NEGATIVE) H 06/12/18 18:30 Urine Glucose (UA) NEGATIVE mg/dL (NEGATIVE) 06/12/18 18:30 Urine Ketones TRACE mg/dL (NEGATIVE) 06/12/18 18:30 Urine Blood LARGE (NEGATIVE) H 06/12/18 18:30 Urine Nitrate POSITIVE (NEGATIVE) H 06/12/18 18:30 Urine Bilirubin NEGATIVE (NEGATIVE) 06/12/18 18:30 Urine Urobilinogen 0.2 E.U./dL (0.2 - 1.0) 06/12/18 18:30 Ur Leukocyte Esterase LARGE (NEGATIVE) H 06/12/18 18:30 Urine RBC 10-25 /hpf (0-5) H 06/12/18 18:30 Urine WBC 25-50 /hpf (0-5) H 06/12/18 18:30 Ur Epithelial Cells MODERATE /lpf (FEW) 06/12/18 18:30 Urine Bacteria MANY /hpf (NONE SEEN) H 06/12/18 18:30 Stool Occult Blood POSITIVE (NEGATIVE) H 06/12/18 19:12 Valproic Acid 30.7 ug/mL (50.0-100.0) L 06/12/18 18:05 - Physical Exam Vitals and I&O: Vital Signs Temp 97.4 F 06/14/18 20:00 Pulse 93 06/14/18 20:00 Resp 19 06/14/18 20:00 BP 105/60 06/14/18 20:00 Pulse Ox 98 06/14/18 20:00 Intake & Output 06/14/18 06/14/18 06/15/18 06:59 18:59 06:59 Intake Total 1000 800 Balance 1000 800 Weight (lbs) 62.414 kg 62.414 kg Intake: Intake, IV Amount 200 Meropenem 500 mg In 200 Sodium Chloride 0.9% 100 ml @ 100 mls/hr IV Q8H [facility] Rx#:[id number] Oral 100 Tube Feeding 600 400 Other 100 400 Other: # Voids 2 # Bowel Movements 1 Stool Characteristics Soft Soft Brown Brown Black Black Weight Source Bedscale Bedscale Active Medications: Current Medications Acetaminophen (Tylenol) 650 mg PO Q4HR PRN PRN Reason: Pain Or Fever above 101 Stop: 08/12/18 00:56 Last Admin: 06/14/18 16:16 Dose: 650 mg Artificial Tears (Lubrifresh Ophth Oint) 1 appl EACH EYE BID [facility] Stop: 08/12/18 08:59 Last Admin: 06/14/18 16:14 Dose: 1 appl Ascorbic Acid (Vitamin C) 500 mg GT BID [facility] Stop: 08/12/18 08:59 Last Admin: 06/14/18 16:14 Dose: 500 mg Aspirin (Aspirin Chewable) 81 mg GT DAILY [facility] Stop: 08/12/18 08:59 Last Admin: 06/14/18 08:40 Dose: 81 mg Donepezil HCl (Aricept) 10 mg GT HS [facility] Stop: 08/12/18 20:59 Last Admin: 06/13/18 21:18 Dose: 10 mg Meropenem 500 mg/ Sodium (Chloride) 100 mls @ 100 mls/hr IV Q8H [facility] Stop: 08/12/18 12:59 Last Admin: 06/14/18 12:51 Dose: 100 mls/hr Levetiracetam (Keppra) 500 mg GT Q12HR [facility] Stop: 08/12/18 08:59 Last Admin: 06/14/18 08:40 Dose: 500 mg Memantine (Namenda) 5 mg GT DAILY [facility] Stop: 08/12/18 08:59 Last Admin: 06/14/18 08:40 Dose: 5 mg Nystatin (Nystop) 100,000 units TP BID [facility] Stop: 08/12/18 08:59 Last Admin: 06/14/18 16:14 Dose: 100,000 units Ondansetron HCl (Zofran) 4 mg IV Q6H PRN PRN Reason: Nausea / Vomiting Stop: 08/12/18 00:57 Last Admin: 06/13/18 11:56 Dose: 4 mg Valproate Sodium (Depakene) 250 mg GT Q12HR [facility] Stop: 08/12/18 08:59 Last Admin: 06/14/18 08:39 Dose: 250 mg Cardiovascular: Regular rate Lungs: Clear to auscultation Abdomen: Soft, no Tender - Procedures Procedures: Procedures Procedure Code Date DRAINAGE OF SKIN ABSCESS 31360 10/09/14 EXCISION OF STOMACH, PYLORUS, ENDO, DIAGN [id number] 05/13/18 OTHER SKIN & SUBQ I D 86.04 10/09/14 Assessment/Plan - Problem List Patient Problems: All Active Problems TARRY STOOLS (Acute) - Assessment Assessment: Complicated UTI 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 Dementia Dysphagia Seizure disorder - Plan Plan: Continue IV antibiotics Follow final culture Urology eval noted Plan of care dw nursing staff Nutritional Asmnt/Malnutr-PDOC - Dietary Evaluation Malnutrition Findings (Please click <Entered> for more info): Nutritional Asmnt/Malnutrition Start: 06/13/18 11: 18 Text: Status: Complete Freq: Protocol: Document 06/13/18 11:20 [email or web address] (Rec: 06/13/18 11:36 MMULHERN QUINTIN- FNS1) Nutritional Asmnt/Malnutrition Patient General Information Nutritional Screening High Risk Diagnosis Pyelonephritis Pertinent Medical Hx/Surgical Hx Ulcer sacral, dry eye syndrome , contracture of muscle lower leg, cellulitis of abdominal wall, pressure ulcer, basal cell carcinoma Subjective Information Per nursing notes, tolerating tbe feednig well with no residuals. Current tube feeding regimen provides 1000 ml/day, 1200 kcal, 55gm protein, 807ml free water ( 1407 ml with FWF). Current Diet Order/ Nutrition Support Jevity 1.2 @ 50 ml/hr x 20 hours, (on 2pm off 10am) FWF 200ml q 8hrs Patient / S.O Not Indicated Pertinent Medications vitamin C, zofran Pertinent Labs (06/12) Albumin 3.3 Nutritional Hx/Data Height 1.63 m Height (Calculated Centimeters) 162.6 Current Weight (lbs) 61.689 kg Weight (Calculated Kilograms) 61.7 Weight (Calculated Grams) 24745.6 [place] Body Weight 120 % [place] Body Weight 113 Body Mass Index (BMI) 23.3 Recent Weight Change No Weight Status Approriate GI Symptoms GI Symptoms None Last BM None noted in EMR since admission Difficult in: Chewing Swallowing Food Allergies No Cultural/Ethnic/Zoroastrian Belief none indicated Usual diet at home Fibersource at 50 ml/hr x 20 hours (Equivalent to Jevity 1. 2) Skin Integrity/Comment: Caleb Carranza Estimated Nutritional Goals BEE in Kcals: Using Current wt Calories/Kcals/Kg 61.8 kg CBW 25-30 kcal/kg Kcals Calculated ~7442-9696 kcal/day Protein: Using Current wt Protein g/kgm/kg Protein Calculated ~60 gm/day Fluid: ml ~3616-9049 ml/day (1 ml/kcal) Nutritional Problem 1. Problem Problem Inadequate enteral infusion related to Etiology low TF rate aeb Signs/Symptoms: meeting ~75 of calorie and ~90 % protein goals Intervention/Recommendation Comments 1. Consider increasing Tube feeding Jevity 1.2 to 50ml/hr continuously (x 24 hours) to better meet nutrient needs. Expected Outcomes/Goals Expected Outcomes/Goals Tolerates tube feeding at goal rate to meet 100% of nutrient needs, weight stable, labs WNL F/U MR
[2018-06-15] MEDS: Meropenem 500 MG in Sodium Chloride 0.9% 100 ML IV SCH ×3 (04:46→21:40)
[2018-06-15] MEDS: Multivitamin w/ Minerals Tab GT SCH (11:45)
[2018-06-15] MEDS: Aspirin 81mg Chewable Tab GT SCH (11:45)
[2018-06-15] MEDS: Levetiracetam 500 mg/5mL 5mL UDSyr *for ORAL USE ONLY GT SCH ×2 (11:45→21:47)
[2018-06-15] MEDS: Artificial Tear Ophth Oint 3.5 Gm Tube EACH EYE SCH ×2 (11:46→16:45)
--- NOTE | 2018-06-15 11:52 | Infectious Disease Prog Note ---
Infectious Disease Subjective - Review of Systems Service Date: 06/15/18 Subjective: no fever. Infectious Disease Objective - Results Result Diagrams: 06/13/18 06:25 06/13/18 06:25 Recent Labs: Laboratory Last Values WBC 5.1 Th/cmm (4.8-10.8) D 06/13/18 06:25 RBC 4.20 Mil/cmm (3.80-5.20) 06/13/18 06:25 Hgb 13.1 gm/dL (12-16) 06/13/18 06:25 Hct 38.6 % (41.0-60) L 06/13/18 06:25 MCV 91.9 fl (81-100) 06/13/18 06:25 MCH 31.2 pg (27.0-31.0) H 06/13/18 06:25 MCHC Differential 34.0 pg (28.0-36.0) 06/13/18 06:25 RDW 12.8 % (11.5-20.0) 06/13/18 06:25 Plt Count 176 Th/cmm (150-400) 06/13/18 06:25 MPV 9.6 fl 06/13/18 06:25 Add Manual Diff YES 06/13/18 06:25 Band Neutrophils % 1 % (0-10) 06/13/18 06:25 Neutrophils (Manual) 67 % (40-80) 06/13/18 06:25 Lymphocytes 15 % (20-50) L 06/13/18 06:25 Monocytes 14 % (2-10) H 06/13/18 06:25 Eosinophils 3 % (0-5) 06/13/18 06:25 Basophils 0 % (0-3) 06/13/18 06:25 Platelet Estimate ADEQUATE (NORMAL) 06/13/18 06:25 RBC Morph Micro Appear NORMAL (NORMAL) 06/13/18 06:25 PT 10.8 SECONDS (9.5-11.5) 06/12/18 18:05 INR 1.04 (0.5-1.4) 06/12/18 18:05 PTT (Actin FS) 28.3 SECONDS (26.0-38.0) 06/12/18 18:05 Sodium 140 mEq/L (136-145) 06/13/18 06:25 Potassium 3.8 mEq/L (3.5-5.1) 06/13/18 06:25 Chloride 109 mEq/L (98-107) H 06/13/18 06:25 Carbon Dioxide 23.8 mEq/L (21.0-31.0) 06/13/18 06:25 Anion Gap 11.0 (7.0-16.0) 06/13/18 06:25 BUN 15 mg/dL (7-25) 06/13/18 06:25 Creatinine 0.6 mg/dL (0.6-1.2) 06/13/18 06:25 Est GFR ( Amer) > 60.0 ml/min (>90) 06/13/18 06:25 Est GFR (Non-Af Amer) > 60.0 ml/min 06/13/18 06:25 BUN/Creatinine Ratio 25.0 06/13/18 06:25 Glucose 88 mg/dL (70-105) 06/13/18 06:25 Calcium 8.5 mg/dL (8.6-10.3) L 06/13/18 06:25 Total Bilirubin 0.5 mg/dL (0.3-1.0) 06/12/18 18:05 AST 19 U/L (13-39) 06/12/18 18:05 ALT 12 U/L (7-52) 06/12/18 18:05 Alkaline Phosphatase 89 U/L (34-104) 06/12/18 18:05 Troponin I 0.01 ng/mL (0.01-0.05) 06/12/18 18:05 Total Protein 6.6 gm/dL (6.0-8.3) 06/12/18 18:05 Albumin 3.3 gm/dL (3.7-5.3) L 06/12/18 18:05 Globulin 3.3 gm/dL 06/12/18 18:05 Albumin/Globulin Ratio 1.0 (1.0-1.8) 06/12/18 18:05 Triglycerides 126 mg/dL (<150) 06/12/18 18:00 Cholesterol 109 mg/dL (<200) 06/12/18 18:00 LDL Cholesterol Direct 68 mg/dL (75-193) L 06/12/18 18:00 HDL Cholesterol 36 mg/dL (23-92) 06/12/18 18:00 TSH 1.04 uIU/ml (0.34-5.60) 06/12/18 18:05 Urine Source CATH 06/12/18 18:30 Urine Color YELLOW 06/12/18 18:30 Urine Clarity HAZY (CLEAR) 06/12/18 18:30 Urine pH 8.5 (4.6 - 8.0) 06/12/18 18:30 Ur Specific [place] 1.010 (1.005-1.030) 06/12/18 18:30 Urine Protein 100 mg/dL (NEGATIVE) H 06/12/18 18:30 Urine Glucose (UA) NEGATIVE mg/dL (NEGATIVE) 06/12/18 18:30 Urine Ketones TRACE mg/dL (NEGATIVE) 06/12/18 18:30 Urine Blood LARGE (NEGATIVE) H 06/12/18 18:30 Urine Nitrate POSITIVE (NEGATIVE) H 06/12/18 18:30 Urine Bilirubin NEGATIVE (NEGATIVE) 06/12/18 18:30 Urine Urobilinogen 0.2 E.U./dL (0.2 - 1.0) 06/12/18 18:30 Ur Leukocyte Esterase LARGE (NEGATIVE) H 06/12/18 18:30 Urine RBC 10-25 /hpf (0-5) H 06/12/18 18:30 Urine WBC 25-50 /hpf (0-5) H 06/12/18 18:30 Ur Epithelial Cells MODERATE /lpf (FEW) 06/12/18 18:30 Urine Bacteria MANY /hpf (NONE SEEN) H 06/12/18 18:30 Stool Occult Blood POSITIVE (NEGATIVE) H 06/12/18 19:12 Valproic Acid 30.7 ug/mL (50.0-100.0) L 06/12/18 18:05 - Physical Exam Vitals and I&O: Vital Signs Temp 98.0 F 06/15/18 11:26 Pulse 101 06/15/18 11:26 Resp 19 06/15/18 11:26 BP 114/69 06/15/18 11:26 Pulse Ox 98 06/15/18 11:26 Intake & Output 06/14/18 06/15/18 06/15/18 18:59 06:59 18:59 Intake Total 900 100 Balance 900 100 Weight (lbs) 62.414 kg Intake: Intake, IV Amount 100 100 Meropenem 500 mg In 100 100 Sodium Chloride 0.9% 100 ml @ 100 mls/hr IV Q8H [facility] Rx#:[id number] Tube Feeding 400 Other 400 Other: Stool Characteristics Soft Soft Brown Brown Black Black Weight Source Bedscale Active Medications: Current Medications Acetaminophen (Tylenol) 650 mg PO Q4HR PRN PRN Reason: Pain Or Fever above 101 Stop: 08/12/18 00:56 Last Admin: 06/14/18 16:16 Dose: 650 mg Artificial Tears (Lubrifresh Ophth Oint) 1 appl EACH EYE BID [facility] Stop: 08/12/18 08:59 Last Admin: 06/15/18 11:46 Dose: 1 appl Ascorbic Acid (Vitamin C) 500 mg GT BID [facility] Stop: 08/12/18 08:59 Last Admin: 06/15/18 11:45 Dose: 500 mg Aspirin (Aspirin Chewable) 81 mg GT DAILY [facility] Stop: 08/12/18 08:59 Last Admin: 06/15/18 11:45 Dose: 81 mg Donepezil HCl (Aricept) 10 mg GT HS [facility] Stop: 08/12/18 20:59 Last Admin: 06/14/18 21:42 Dose: 10 mg Meropenem 500 mg/ Sodium (Chloride) 100 mls @ 100 mls/hr IV Q8H [facility] Stop: 08/12/18 12:59 Last Admin: 06/15/18 04:46 Dose: 100 mls/hr Levetiracetam (Keppra) 500 mg GT Q12HR [facility] Stop: 08/12/18 08:59 Last Admin: 06/15/18 11:45 Dose: 500 mg Memantine (Namenda) 5 mg GT DAILY [facility] Stop: 08/12/18 08:59 Last Admin: 06/15/18 11:45 Dose: 5 mg Nystatin (Nystop) 100,000 units TP BID [facility] Stop: 08/12/18 08:59 Last Admin: 06/14/18 16:14 Dose: 100,000 units Ondansetron HCl (Zofran) 4 mg IV Q6H PRN PRN Reason: Nausea / Vomiting Stop: 08/12/18 00:57 Last Admin: 06/13/18 11:56 Dose: 4 mg Valproate Sodium (Depakene) 250 mg GT Q12HR [facility] Stop: 08/12/18 08:59 Last Admin: 06/15/18 11:45 Dose: 250 mg General: no acute distress HEENT: atraumatic, normocephalic, PERRLA Neck: supple, thyromegaly Cardiovascular: S1S2, regular Lungs: clear to auscultation bilaterally, clear to percussion Abdomen: soft, no tender Extremities: no cyanosis, no clubbing, no edema Neurological: awake Skin: intact - Procedures Procedures: Procedures Procedure Code Date DRAINAGE OF SKIN ABSCESS 48135 10/09/14 EXCISION OF STOMACH, PYLORUS, ENDO, DIAGN [id number] 05/13/18 OTHER SKIN & SUBQ I D 86.04 10/09/14 Infectious Disease Assmt/Plan - Problem List Patient Problems: All Active Problems TARRY STOOLS (Acute) - Assessment Assessment: 1. Urinary tract infection, likely ESBL producing organism as the patient has history of ESBL positive Proteus organism infection in the past. 2. Hydronephrosis, right side. 3. May have neurogenic bladder. 4. Cerebrovascular accident. 5. Dementia. 6. History of peptic ulcer disease. 7. Hyperlipidemia. - Plan Plan: continue meropenem. Follow up culture report and go from there. Nutritional Asmnt/Malnutr-PDOC - Dietary Evaluation Malnutrition Findings (Please click <Entered> for more info): Nutritional Asmnt/Malnutrition Start: 06/13/18 11: 18 Text: Status: Complete Freq: Protocol: Document 06/13/18 11:20 MMULHERN (Rec: 06/13/18 11:36 MMULHERN QUINTIN- FNS1) Nutritional Asmnt/Malnutrition Patient General Information Nutritional Screening High Risk Diagnosis Pyelonephritis Pertinent Medical Hx/Surgical Hx Ulcer sacral, dry eye syndrome , contracture of muscle lower leg, cellulitis of abdominal wall, pressure ulcer, basal cell carcinoma Subjective Information Per nursing notes, tolerating tbe feednig well with no residuals. Current tube feeding regimen provides 1000 ml/day, 1200 kcal, 55gm protein, 807ml free water ( 1407 ml with FWF). Current Diet Order/ Nutrition Support Jevity 1.2 @ 50 ml/hr x 20 hours, (on 2pm off 10am) FWF 200ml q 8hrs Patient / S.O Not Indicated Pertinent Medications vitamin C, zofran Pertinent Labs (06/12) Albumin 3.3 Nutritional Hx/Data Height 1.63 m Height (Calculated Centimeters) 162.6 Current Weight (lbs) 61.689 kg Weight (Calculated Kilograms) 61.7 Weight (Calculated Grams) 18013.6 [place] Body Weight 120 % [place] Body Weight 113 Body Mass Index (BMI) 23.3 Recent Weight Change No Weight Status Approriate GI Symptoms GI Symptoms None Last BM None noted in EMR since admission Difficult in: Chewing Swallowing Food Allergies No Cultural/Ethnic/Religion Belief none indicated Usual diet at home Fibersource at 50 ml/hr x 20 hours (Equivalent to Jevity 1. 2) Skin Integrity/Comment: Caleb Carranza Estimated Nutritional Goals BEE in Kcals: Using Current wt Calories/Kcals/Kg 61.8 kg CBW 25-30 kcal/kg Kcals Calculated ~6349-6781 kcal/day Protein: Using Current wt Protein g/kgm/kg Protein Calculated ~60 gm/day Fluid: ml ~8354-7711 ml/day (1 ml/kcal) Nutritional Problem 1. Problem Problem Inadequate enteral infusion related to Etiology low TF rate aeb Signs/Symptoms: meeting ~75 of calorie and ~90 % protein goals Intervention/Recommendation Comments 1. Consider increasing Tube feeding Jevity 1.2 to 50ml/hr continuously (x 24 hours) to better meet nutrient needs. Expected Outcomes/Goals Expected Outcomes/Goals Tolerates tube feeding at goal rate to meet 100% of nutrient needs, weight stable, labs WNL F/U MR
[2018-06-15] MEDS: NYSTATIN 100000 UNITS/GM POWD TP SCH ×2 (13:52→16:46)
--- NOTE | 2018-06-15 22:24 | General Progress Note ---
Subjective - Review of Systems Service Date: 06/15/18 Subjective: Patient seems to be doing fine afebrile no diarrhea or vomiting reported patient is nonverbal Objective - Results Result Diagrams: 06/13/18 06:25 06/13/18 06:25 Recent Labs: Laboratory Last Values WBC 5.1 Th/cmm (4.8-10.8) D 06/13/18 06:25 RBC 4.20 Mil/cmm (3.80-5.20) 06/13/18 06:25 Hgb 13.1 gm/dL (12-16) 06/13/18 06:25 Hct 38.6 % (41.0-60) L 06/13/18 06:25 MCV 91.9 fl (81-100) 06/13/18 06:25 MCH 31.2 pg (27.0-31.0) H 06/13/18 06:25 MCHC Differential 34.0 pg (28.0-36.0) 06/13/18 06:25 RDW 12.8 % (11.5-20.0) 06/13/18 06:25 Plt Count 176 Th/cmm (150-400) 06/13/18 06:25 MPV 9.6 fl 06/13/18 06:25 Add Manual Diff YES 06/13/18 06:25 Band Neutrophils % 1 % (0-10) 06/13/18 06:25 Neutrophils (Manual) 67 % (40-80) 06/13/18 06:25 Lymphocytes 15 % (20-50) L 06/13/18 06:25 Monocytes 14 % (2-10) H 06/13/18 06:25 Eosinophils 3 % (0-5) 06/13/18 06:25 Basophils 0 % (0-3) 06/13/18 06:25 Platelet Estimate ADEQUATE (NORMAL) 06/13/18 06:25 RBC Morph Micro Appear NORMAL (NORMAL) 06/13/18 06:25 PT 10.8 SECONDS (9.5-11.5) 06/12/18 18:05 INR 1.04 (0.5-1.4) 06/12/18 18:05 PTT (Actin FS) 28.3 SECONDS (26.0-38.0) 06/12/18 18:05 Sodium 140 mEq/L (136-145) 06/13/18 06:25 Potassium 3.8 mEq/L (3.5-5.1) 06/13/18 06:25 Chloride 109 mEq/L (98-107) H 06/13/18 06:25 Carbon Dioxide 23.8 mEq/L (21.0-31.0) 06/13/18 06:25 Anion Gap 11.0 (7.0-16.0) 06/13/18 06:25 BUN 15 mg/dL (7-25) 06/13/18 06:25 Creatinine 0.6 mg/dL (0.6-1.2) 06/13/18 06:25 Est GFR ( Amer) > 60.0 ml/min (>90) 06/13/18 06:25 Est GFR (Non-Af Amer) > 60.0 ml/min 06/13/18 06:25 BUN/Creatinine Ratio 25.0 06/13/18 06:25 Glucose 88 mg/dL (70-105) 06/13/18 06:25 Calcium 8.5 mg/dL (8.6-10.3) L 06/13/18 06:25 Total Bilirubin 0.5 mg/dL (0.3-1.0) 06/12/18 18:05 AST 19 U/L (13-39) 06/12/18 18:05 ALT 12 U/L (7-52) 06/12/18 18:05 Alkaline Phosphatase 89 U/L (34-104) 06/12/18 18:05 Troponin I 0.01 ng/mL (0.01-0.05) 06/12/18 18:05 Total Protein 6.6 gm/dL (6.0-8.3) 06/12/18 18:05 Albumin 3.3 gm/dL (3.7-5.3) L 06/12/18 18:05 Globulin 3.3 gm/dL 06/12/18 18:05 Albumin/Globulin Ratio 1.0 (1.0-1.8) 06/12/18 18:05 Triglycerides 126 mg/dL (<150) 06/12/18 18:00 Cholesterol 109 mg/dL (<200) 06/12/18 18:00 LDL Cholesterol Direct 68 mg/dL (75-193) L 06/12/18 18:00 HDL Cholesterol 36 mg/dL (23-92) 06/12/18 18:00 TSH 1.04 uIU/ml (0.34-5.60) 06/12/18 18:05 Urine Source CATH 06/12/18 18:30 Urine Color YELLOW 06/12/18 18:30 Urine Clarity HAZY (CLEAR) 06/12/18 18:30 Urine pH 8.5 (4.6 - 8.0) 06/12/18 18:30 Ur Specific [place] 1.010 (1.005-1.030) 06/12/18 18:30 Urine Protein 100 mg/dL (NEGATIVE) H 06/12/18 18:30 Urine Glucose (UA) NEGATIVE mg/dL (NEGATIVE) 06/12/18 18:30 Urine Ketones TRACE mg/dL (NEGATIVE) 06/12/18 18:30 Urine Blood LARGE (NEGATIVE) H 06/12/18 18:30 Urine Nitrate POSITIVE (NEGATIVE) H 06/12/18 18:30 Urine Bilirubin NEGATIVE (NEGATIVE) 06/12/18 18:30 Urine Urobilinogen 0.2 E.U./dL (0.2 - 1.0) 06/12/18 18:30 Ur Leukocyte Esterase LARGE (NEGATIVE) H 06/12/18 18:30 Urine RBC 10-25 /hpf (0-5) H 06/12/18 18:30 Urine WBC 25-50 /hpf (0-5) H 06/12/18 18:30 Ur Epithelial Cells MODERATE /lpf (FEW) 06/12/18 18:30 Urine Bacteria MANY /hpf (NONE SEEN) H 06/12/18 18:30 Stool Occult Blood POSITIVE (NEGATIVE) H 06/12/18 19:12 Valproic Acid 30.7 ug/mL (50.0-100.0) L 06/12/18 18:05 Levetiracetam 12.7 ug/mL (10.0-40.0) 06/12/18 18:00 - Physical Exam Vitals and I&O: Vital Signs Temp 99 F 06/15/18 20:00 Pulse 102 06/15/18 20:00 Resp 18 06/15/18 20:00 BP 101/55 06/15/18 20:00 Pulse Ox 92 06/15/18 20:00 Intake & Output 06/15/18 06/15/18 06/16/18 06:59 18:59 06:59 Intake Total 200 100 Balance 200 100 Weight (lbs) 62.142 kg Intake: Intake, IV Amount 200 100 Meropenem 500 mg In 200 100 Sodium Chloride 0.9% 100 ml @ 100 mls/hr IV Q8H [facility] Rx#:[id number] Other: # Voids 2 # Bowel Movements 1 Stool Characteristics Soft Soft Brown Brown Black Black Weight Source Bedscale Active Medications: Current Medications Acetaminophen (Tylenol) 650 mg PO Q4HR PRN PRN Reason: Pain Or Fever above 101 Stop: 08/12/18 00:56 Last Admin: 06/14/18 16:16 Dose: 650 mg Artificial Tears (Lubrifresh Ophth Oint) 1 appl EACH EYE BID MIGUE Stop: 08/12/18 08:59 Last Admin: 06/15/18 16:45 Dose: 1 appl Ascorbic Acid (Vitamin C) 500 mg GT BID MIGUE Stop: 08/12/18 08:59 Last Admin: 06/15/18 16:45 Dose: 500 mg Aspirin (Aspirin Chewable) 81 mg GT DAILY MIGUE Stop: 08/12/18 08:59 Last Admin: 06/15/18 11:45 Dose: 81 mg [place] Oil/Indian Balsam/Trypsin (Venelex) 1 appl TP DAILY MIGUE Stop: 08/15/18 08:59 Donepezil HCl (Aricept) 10 mg GT HS MIGUE Stop: 08/12/18 20:59 Last Admin: 06/15/18 21:47 Dose: 10 mg Meropenem 500 mg/ Sodium (Chloride) 100 mls @ 100 mls/hr IV Q8H MIGUE Stop: 08/12/18 12:59 Last Admin: 06/15/18 21:40 Dose: 100 mls/hr Levetiracetam (Keppra) 500 mg GT Q12HR MIGUE Stop: 08/12/18 08:59 Last Admin: 06/15/18 21:47 Dose: 500 mg Memantine (Namenda) 5 mg GT DAILY MIGUE Stop: 08/12/18 08:59 Last Admin: 06/15/18 11:45 Dose: 5 mg Nystatin (Nystop) 100,000 units TP BID MIGUE Stop: 08/12/18 08:59 Last Admin: 06/15/18 16:46 Dose: 100,000 units Ondansetron HCl (Zofran) 4 mg IV Q6H PRN PRN Reason: Nausea / Vomiting Stop: 08/12/18 00:57 Last Admin: 06/13/18 11:56 Dose: 4 mg Valproate Sodium (Depakene) 250 mg GT Q12HR MIGUE Stop: 08/12/18 08:59 Last Admin: 06/15/18 21:47 Dose: 250 mg Cardiovascular: Regular rate Lungs: Clear to auscultation Abdomen: Soft, no Tender - Procedures Procedures: Procedures Procedure Code Date DRAINAGE OF SKIN ABSCESS 80441 10/09/14 EXCISION OF STOMACH, PYLORUS, ENDO, DIAGN [id number] 05/13/18 OTHER SKIN & SUBQ I D 86.04 10/09/14 Assessment/Plan - Problem List Patient Problems: All Active Problems TARRY STOOLS (Acute) - Assessment Assessment: Complicated UTI 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 Dementia Dysphagia Seizure disorder - Plan Plan: Continue IV antibiotics Follow final culture Urology eval noted Plan of care dw nursing staff Nutritional Asmnt/Malnutr-PDOC - Dietary Evaluation Malnutrition Findings (Please click <Entered> for more info): Nutritional Asmnt/Malnutrition Start: 06/13/18 11: 18 Text: Status: Complete Freq: Protocol: Document 06/13/18 11:20 MMKARLEE (Rec: 06/13/18 11:36 MMULARCELIA RIBEIRO- FNS1) Nutritional Asmnt/Malnutrition Patient General Information Nutritional Screening High Risk Diagnosis Pyelonephritis Pertinent Medical Hx/Surgical Hx Ulcer sacral, dry eye syndrome , contracture of muscle lower leg, cellulitis of abdominal wall, pressure ulcer, basal cell carcinoma Subjective Information Per nursing notes, tolerating tbe feednig well with no residuals. Current tube feeding regimen provides 1000 ml/day, 1200 kcal, 55gm protein, 807ml free water ( 1407 ml with FWF). Current Diet Order/ Nutrition Support Jevity 1.2 @ 50 ml/hr x 20 hours, (on 2pm off 10am) FWF 200ml q 8hrs Patient / S.O Not Indicated Pertinent Medications vitamin C, zofran Pertinent Labs (06/12) Albumin 3.3 Nutritional Hx/Data Height 1.63 m Height (Calculated Centimeters) 162.6 Current Weight (lbs) 61.689 kg Weight (Calculated Kilograms) 61.7 Weight (Calculated Grams) 62558.6 [place] Body Weight 120 % [place] Body Weight 113 Body Mass Index (BMI) 23.3 Recent Weight Change No Weight Status Approriate GI Symptoms GI Symptoms None Last BM None noted in EMR since admission Difficult in: Chewing Swallowing Food Allergies No Cultural/Ethnic/Advent Belief none indicated Usual diet at home Fibersource at 50 ml/hr x 20 hours (Equivalent to Jevity 1. 2) Skin Integrity/Comment: Caleb Carranza Estimated Nutritional Goals BEE in Kcals: Using Current wt Calories/Kcals/Kg 61.8 kg CBW 25-30 kcal/kg Kcals Calculated ~7522-0682 kcal/day Protein: Using Current wt Protein g/kgm/kg Protein Calculated ~60 gm/day Fluid: ml ~5364-1416 ml/day (1 ml/kcal) Nutritional Problem 1. Problem Problem Inadequate enteral infusion related to Etiology low TF rate aeb Signs/Symptoms: meeting ~75 of calorie and ~90 % protein goals Intervention/Recommendation Comments 1. Consider increasing Tube feeding Jevity 1.2 to 50ml/hr continuously (x 24 hours) to better meet nutrient needs. Expected Outcomes/Goals Expected Outcomes/Goals Tolerates tube feeding at goal rate to meet 100% of nutrient needs, weight stable, labs WNL F/U MR
[2018-06-16] MEDS: Meropenem 500 MG in Sodium Chloride 0.9% 100 ML IV SCH ×3 (04:56→21:35)
--- NOTE | 2018-06-16 06:32 | Progress Notes ---
DATE: UROLOGY FOLLOWUP SUBJECTIVE: The patient is better without complaints of fever. The patient is incontinent without the Hassan and urine culture is growing gram-negative rods, but the ID is pending. OBJECTIVE: VITAL SIGNS: On exam; temperature 98.9, heart rate 99, blood pressure 117/71. HEART: Sounds sinus rhythm. ABDOMEN: Soft, nontender and nondistended. Bladder is not palpable. EXTREMITIES: Contracted without pedal edema. LABORATORY DATA: We do not have a CBC today and there is no chemistry either. Urine culture as above. IMPRESSION: 1. Urinary tract infection. Rule out neurogenic bladder. Residual volume was low; therefore, we will not use a Hassan, but she could still be having a hyperreflexic bladder causing pyelonephritis. 2. Diabetes. This is not very well documented. Sugar levels have been normal and she is not on any antidiabetics at this time. 3. Right lower pole stones, nonobstructive, need to be followed. 4. No evidence of hydronephrosis, discussed with Radiology. 5. History of stroke and contractures leading to bedbound condition and related complications. 6. History of gastrointestinal bleed, currently seems to be stable, although hemoglobin has not been checked in 2-3 days. 7. Dementia, making her noncommunicative and G-tube status. JOB# [id number]
[2018-06-16] MEDS: Aspirin 81mg Chewable Tab GT SCH (09:13)
[2018-06-16] MEDS: Artificial Tear Ophth Oint 3.5 Gm Tube EACH EYE SCH ×2 (09:13→16:17)
[2018-06-16] MEDS: Multivitamin w/ Minerals Tab GT SCH (09:13)
[2018-06-16] MEDS: NYSTATIN 100000 UNITS/GM POWD TP SCH ×2 (09:13→16:17)
[2018-06-16] MEDS: Levetiracetam 500 mg/5mL 5mL UDSyr *for ORAL USE ONLY GT SCH ×2 (10:08→21:36)
[2018-06-16] MEDS: Venelex 60gm Tube TP SCH (10:08)
--- NOTE | 2018-06-16 11:54 | Infectious Disease Prog Note ---
Infectious Disease Subjective - Review of Systems Service Date: 06/16/18 Subjective: no fever. Infectious Disease Objective - Results Result Diagrams: 06/13/18 06:25 06/13/18 06:25 Recent Labs: Laboratory Last Values WBC 5.1 Th/cmm (4.8-10.8) D 06/13/18 06:25 RBC 4.20 Mil/cmm (3.80-5.20) 06/13/18 06:25 Hgb 13.1 gm/dL (12-16) 06/13/18 06:25 Hct 38.6 % (41.0-60) L 06/13/18 06:25 MCV 91.9 fl (81-100) 06/13/18 06:25 MCH 31.2 pg (27.0-31.0) H 06/13/18 06:25 MCHC Differential 34.0 pg (28.0-36.0) 06/13/18 06:25 RDW 12.8 % (11.5-20.0) 06/13/18 06:25 Plt Count 176 Th/cmm (150-400) 06/13/18 06:25 MPV 9.6 fl 06/13/18 06:25 Add Manual Diff YES 06/13/18 06:25 Band Neutrophils % 1 % (0-10) 06/13/18 06:25 Neutrophils (Manual) 67 % (40-80) 06/13/18 06:25 Lymphocytes 15 % (20-50) L 06/13/18 06:25 Monocytes 14 % (2-10) H 06/13/18 06:25 Eosinophils 3 % (0-5) 06/13/18 06:25 Basophils 0 % (0-3) 06/13/18 06:25 Platelet Estimate ADEQUATE (NORMAL) 06/13/18 06:25 RBC Morph Micro Appear NORMAL (NORMAL) 06/13/18 06:25 PT 10.8 SECONDS (9.5-11.5) 06/12/18 18:05 INR 1.04 (0.5-1.4) 06/12/18 18:05 PTT (Actin FS) 28.3 SECONDS (26.0-38.0) 06/12/18 18:05 Sodium 140 mEq/L (136-145) 06/13/18 06:25 Potassium 3.8 mEq/L (3.5-5.1) 06/13/18 06:25 Chloride 109 mEq/L (98-107) H 06/13/18 06:25 Carbon Dioxide 23.8 mEq/L (21.0-31.0) 06/13/18 06:25 Anion Gap 11.0 (7.0-16.0) 06/13/18 06:25 BUN 15 mg/dL (7-25) 06/13/18 06:25 Creatinine 0.6 mg/dL (0.6-1.2) 06/13/18 06:25 Est GFR ( Amer) > 60.0 ml/min (>90) 06/13/18 06:25 Est GFR (Non-Af Amer) > 60.0 ml/min 06/13/18 06:25 BUN/Creatinine Ratio 25.0 06/13/18 06:25 Glucose 88 mg/dL (70-105) 06/13/18 06:25 Calcium 8.5 mg/dL (8.6-10.3) L 06/13/18 06:25 Total Bilirubin 0.5 mg/dL (0.3-1.0) 06/12/18 18:05 AST 19 U/L (13-39) 06/12/18 18:05 ALT 12 U/L (7-52) 06/12/18 18:05 Alkaline Phosphatase 89 U/L (34-104) 06/12/18 18:05 Troponin I 0.01 ng/mL (0.01-0.05) 06/12/18 18:05 Total Protein 6.6 gm/dL (6.0-8.3) 06/12/18 18:05 Albumin 3.3 gm/dL (3.7-5.3) L 06/12/18 18:05 Globulin 3.3 gm/dL 06/12/18 18:05 Albumin/Globulin Ratio 1.0 (1.0-1.8) 06/12/18 18:05 Triglycerides 126 mg/dL (<150) 06/12/18 18:00 Cholesterol 109 mg/dL (<200) 06/12/18 18:00 LDL Cholesterol Direct 68 mg/dL (75-193) L 06/12/18 18:00 HDL Cholesterol 36 mg/dL (23-92) 06/12/18 18:00 TSH 1.04 uIU/ml (0.34-5.60) 06/12/18 18:05 Urine Source CATH 06/12/18 18:30 Urine Color YELLOW 06/12/18 18:30 Urine Clarity HAZY (CLEAR) 06/12/18 18:30 Urine pH 8.5 (4.6 - 8.0) 06/12/18 18:30 Ur Specific [place] 1.010 (1.005-1.030) 06/12/18 18:30 Urine Protein 100 mg/dL (NEGATIVE) H 06/12/18 18:30 Urine Glucose (UA) NEGATIVE mg/dL (NEGATIVE) 06/12/18 18:30 Urine Ketones TRACE mg/dL (NEGATIVE) 06/12/18 18:30 Urine Blood LARGE (NEGATIVE) H 06/12/18 18:30 Urine Nitrate POSITIVE (NEGATIVE) H 06/12/18 18:30 Urine Bilirubin NEGATIVE (NEGATIVE) 06/12/18 18:30 Urine Urobilinogen 0.2 E.U./dL (0.2 - 1.0) 06/12/18 18:30 Ur Leukocyte Esterase LARGE (NEGATIVE) H 06/12/18 18:30 Urine RBC 10-25 /hpf (0-5) H 06/12/18 18:30 Urine WBC 25-50 /hpf (0-5) H 06/12/18 18:30 Ur Epithelial Cells MODERATE /lpf (FEW) 06/12/18 18:30 Urine Bacteria MANY /hpf (NONE SEEN) H 06/12/18 18:30 Stool Occult Blood POSITIVE (NEGATIVE) H 06/12/18 19:12 Valproic Acid 30.7 ug/mL (50.0-100.0) L 06/12/18 18:05 Levetiracetam 12.7 ug/mL (10.0-40.0) 06/12/18 18:00 - Physical Exam Vitals and I&O: Vital Signs Temp 97.6 F 06/16/18 09:09 Pulse 102 06/16/18 09:09 Resp 18 06/16/18 09:09 BP 111/69 06/16/18 09:09 Pulse Ox 94 06/16/18 09:09 Intake & Output 06/15/18 06/16/18 06/16/18 18:59 06:59 18:59 Intake Total 100 100 Balance 100 100 Weight (lbs) 62.142 kg 63.185 kg Intake: Intake, IV Amount 100 100 Meropenem 500 mg In 100 100 Sodium Chloride 0.9% 100 ml @ 100 mls/hr IV Q8H [facility] Rx#:[id number] Other: # Voids 2 2 # Bowel Movements 1 1 Stool Characteristics Soft Soft Soft Brown Brown Brown Black Black Black Weight Source Bedscale Bedscale Active Medications: Current Medications Acetaminophen (Tylenol) 650 mg PO Q4HR PRN PRN Reason: Pain Or Fever above 101 Stop: 08/12/18 00:56 Last Admin: 06/14/18 16:16 Dose: 650 mg Artificial Tears (Lubrifresh Ophth Oint) 1 appl EACH EYE BID MIGUE Stop: 08/12/18 08:59 Last Admin: 06/16/18 09:13 Dose: 1 appl Ascorbic Acid (Vitamin C) 500 mg GT BID MIGUE Stop: 08/12/18 08:59 Last Admin: 06/16/18 09:13 Dose: 500 mg Aspirin (Aspirin Chewable) 81 mg GT DAILY MIGUE Stop: 08/12/18 08:59 Last Admin: 06/16/18 09:13 Dose: 81 mg [place] Oil/[place] Balsam/Trypsin (Venelex) 1 appl TP DAILY MIGUE Stop: 08/15/18 08:59 Last Admin: 06/16/18 10:08 Dose: 1 appl Donepezil HCl (Aricept) 10 mg GT HS MIGUE Stop: 08/12/18 20:59 Last Admin: 06/15/18 21:47 Dose: 10 mg Meropenem 500 mg/ Sodium (Chloride) 100 mls @ 100 mls/hr IV Q8H MIGUE Stop: 08/12/18 12:59 Last Admin: 06/16/18 04:56 Dose: 100 mls/hr Levetiracetam (Keppra) 500 mg GT Q12HR MIGUE Stop: 08/12/18 08:59 Last Admin: 06/16/18 10:08 Dose: 500 mg Memantine (Namenda) 5 mg GT DAILY MIGUE Stop: 08/12/18 08:59 Last Admin: 06/16/18 09:13 Dose: 5 mg Nystatin (Nystop) 100,000 units TP BID MIGUE Stop: 08/12/18 08:59 Last Admin: 06/16/18 09:13 Dose: 100,000 units Ondansetron HCl (Zofran) 4 mg IV Q6H PRN PRN Reason: Nausea / Vomiting Stop: 08/12/18 00:57 Last Admin: 06/13/18 11:56 Dose: 4 mg Valproate Sodium (Depakene) 250 mg GT Q12HR MIGUE Stop: 08/12/18 08:59 Last Admin: 06/16/18 09:13 Dose: 250 mg General: no acute distress, well developed, well nourished HEENT: atraumatic, normocephalic, PERRLA Neck: supple, no thyromegaly Cardiovascular: S1S2, regular Lungs: clear to auscultation bilaterally, clear to percussion Abdomen: soft, no tender, no mass Extremities: no cyanosis, no clubbing, no edema Neurological: awake, alert - Procedures Procedures: Procedures Procedure Code Date DRAINAGE OF SKIN ABSCESS 52849 10/09/14 EXCISION OF STOMACH, PYLORUS, ENDO, DIAGN [id number] 05/13/18 OTHER SKIN & SUBQ I D 86.04 10/09/14 Infectious Disease Assmt/Plan - Problem List Patient Problems: All Active Problems TARRY STOOLS (Acute) - Assessment Assessment: 1. Urinary tract infection, likely ESBL producing organism as the patient has history of ESBL positive Proteus organism infection in the past. 2. Hydronephrosis, right side. 3. May have neurogenic bladder. 4. Cerebrovascular accident. 5. Dementia. 6. History of peptic ulcer disease. 7. Hyperlipidemia. - Plan Plan: continue meropenem. Follow up culture report and go from there. may change meropenem to invanz 1G iv daily for 10 days. Nutritional Asmnt/Malnutr-PDOC - Dietary Evaluation Malnutrition Findings (Please click <Entered> for more info): Nutritional Asmnt/Malnutrition Start: 06/13/18 11: 18 Text: Status: Complete Freq: Protocol: Document 06/13/18 11:20 MMULHERN (Rec: 06/13/18 11:36 MMULHERHailey RIBEIRO- FNS1) Nutritional Asmnt/Malnutrition Patient General Information Nutritional Screening High Risk Diagnosis Pyelonephritis Pertinent Medical Hx/Surgical Hx Ulcer sacral, dry eye syndrome , contracture of muscle lower leg, cellulitis of abdominal wall, pressure ulcer, basal cell carcinoma Subjective Information Per nursing notes, tolerating tbe feednig well with no residuals. Current tube feeding regimen provides 1000 ml/day, 1200 kcal, 55gm protein, 807ml free water ( 1407 ml with FWF). Current Diet Order/ Nutrition Support Jevity 1.2 @ 50 ml/hr x 20 hours, (on 2pm off 10am) FWF 200ml q 8hrs Patient / S.O Not Indicated Pertinent Medications vitamin C, zofran Pertinent Labs (06/12) Albumin 3.3 Nutritional Hx/Data Height 1.63 m Height (Calculated Centimeters) 162.6 Current Weight (lbs) 61.689 kg Weight (Calculated Kilograms) 61.7 Weight (Calculated Grams) 71479.6 [place] Body Weight 120 % [place] Body Weight 113 Body Mass Index (BMI) 23.3 Recent Weight Change No Weight Status Approriate GI Symptoms GI Symptoms None Last BM None noted in EMR since admission Difficult in: Chewing Swallowing Food Allergies No Cultural/Ethnic/Adventism Belief none indicated Usual diet at home Fibersource at 50 ml/hr x 20 hours (Equivalent to Jevity 1. 2) Skin Integrity/Comment: Caleb Carranza Estimated Nutritional Goals BEE in Kcals: Using Current wt Calories/Kcals/Kg 61.8 kg CBW 25-30 kcal/kg Kcals Calculated ~9223-4104 kcal/day Protein: Using Current wt Protein g/kgm/kg Protein Calculated ~60 gm/day Fluid: ml ~4145-1253 ml/day (1 ml/kcal) Nutritional Problem 1. Problem Problem Inadequate enteral infusion related to Etiology low TF rate aeb Signs/Symptoms: meeting ~75 of calorie and ~90 % protein goals Intervention/Recommendation Comments 1. Consider increasing Tube feeding Jevity 1.2 to 50ml/hr continuously (x 24 hours) to better meet nutrient needs. Expected Outcomes/Goals Expected Outcomes/Goals Tolerates tube feeding at goal rate to meet 100% of nutrient needs, weight stable, labs WNL F/U MR
--- NOTE | 2018-06-16 21:00 | General Progress Note ---
Subjective - Review of Systems Service Date: 06/16/18 Subjective: Patient seems to be doing fine afebrile non verbal Objective - Results Result Diagrams: 06/13/18 06:25 06/13/18 06:25 Recent Labs: Laboratory Last Values WBC 5.1 Th/cmm (4.8-10.8) D 06/13/18 06:25 RBC 4.20 Mil/cmm (3.80-5.20) 06/13/18 06:25 Hgb 13.1 gm/dL (12-16) 06/13/18 06:25 Hct 38.6 % (41.0-60) L 06/13/18 06:25 MCV 91.9 fl (81-100) 06/13/18 06:25 MCH 31.2 pg (27.0-31.0) H 06/13/18 06:25 MCHC Differential 34.0 pg (28.0-36.0) 06/13/18 06:25 RDW 12.8 % (11.5-20.0) 06/13/18 06:25 Plt Count 176 Th/cmm (150-400) 06/13/18 06:25 MPV 9.6 fl 06/13/18 06:25 Add Manual Diff YES 06/13/18 06:25 Band Neutrophils % 1 % (0-10) 06/13/18 06:25 Neutrophils (Manual) 67 % (40-80) 06/13/18 06:25 Lymphocytes 15 % (20-50) L 06/13/18 06:25 Monocytes 14 % (2-10) H 06/13/18 06:25 Eosinophils 3 % (0-5) 06/13/18 06:25 Basophils 0 % (0-3) 06/13/18 06:25 Platelet Estimate ADEQUATE (NORMAL) 06/13/18 06:25 RBC Morph Micro Appear NORMAL (NORMAL) 06/13/18 06:25 PT 10.8 SECONDS (9.5-11.5) 06/12/18 18:05 INR 1.04 (0.5-1.4) 06/12/18 18:05 PTT (Actin FS) 28.3 SECONDS (26.0-38.0) 06/12/18 18:05 Sodium 140 mEq/L (136-145) 06/13/18 06:25 Potassium 3.8 mEq/L (3.5-5.1) 06/13/18 06:25 Chloride 109 mEq/L (98-107) H 06/13/18 06:25 Carbon Dioxide 23.8 mEq/L (21.0-31.0) 06/13/18 06:25 Anion Gap 11.0 (7.0-16.0) 06/13/18 06:25 BUN 15 mg/dL (7-25) 06/13/18 06:25 Creatinine 0.6 mg/dL (0.6-1.2) 06/13/18 06:25 Est GFR ( Amer) > 60.0 ml/min (>90) 06/13/18 06:25 Est GFR (Non-Af Amer) > 60.0 ml/min 06/13/18 06:25 BUN/Creatinine Ratio 25.0 06/13/18 06:25 Glucose 88 mg/dL (70-105) 06/13/18 06:25 Calcium 8.5 mg/dL (8.6-10.3) L 06/13/18 06:25 Total Bilirubin 0.5 mg/dL (0.3-1.0) 06/12/18 18:05 AST 19 U/L (13-39) 06/12/18 18:05 ALT 12 U/L (7-52) 06/12/18 18:05 Alkaline Phosphatase 89 U/L (34-104) 06/12/18 18:05 Troponin I 0.01 ng/mL (0.01-0.05) 06/12/18 18:05 Total Protein 6.6 gm/dL (6.0-8.3) 06/12/18 18:05 Albumin 3.3 gm/dL (3.7-5.3) L 06/12/18 18:05 Globulin 3.3 gm/dL 06/12/18 18:05 Albumin/Globulin Ratio 1.0 (1.0-1.8) 06/12/18 18:05 Triglycerides 126 mg/dL (<150) 06/12/18 18:00 Cholesterol 109 mg/dL (<200) 06/12/18 18:00 LDL Cholesterol Direct 68 mg/dL (75-193) L 06/12/18 18:00 HDL Cholesterol 36 mg/dL (23-92) 06/12/18 18:00 TSH 1.04 uIU/ml (0.34-5.60) 06/12/18 18:05 Urine Source CATH 06/12/18 18:30 Urine Color YELLOW 06/12/18 18:30 Urine Clarity HAZY (CLEAR) 06/12/18 18:30 Urine pH 8.5 (4.6 - 8.0) 06/12/18 18:30 Ur Specific [place] 1.010 (1.005-1.030) 06/12/18 18:30 Urine Protein 100 mg/dL (NEGATIVE) H 06/12/18 18:30 Urine Glucose (UA) NEGATIVE mg/dL (NEGATIVE) 06/12/18 18:30 Urine Ketones TRACE mg/dL (NEGATIVE) 06/12/18 18:30 Urine Blood LARGE (NEGATIVE) H 06/12/18 18:30 Urine Nitrate POSITIVE (NEGATIVE) H 06/12/18 18:30 Urine Bilirubin NEGATIVE (NEGATIVE) 06/12/18 18:30 Urine Urobilinogen 0.2 E.U./dL (0.2 - 1.0) 06/12/18 18:30 Ur Leukocyte Esterase LARGE (NEGATIVE) H 06/12/18 18:30 Urine RBC 10-25 /hpf (0-5) H 06/12/18 18:30 Urine WBC 25-50 /hpf (0-5) H 06/12/18 18:30 Ur Epithelial Cells MODERATE /lpf (FEW) 06/12/18 18:30 Urine Bacteria MANY /hpf (NONE SEEN) H 06/12/18 18:30 Stool Occult Blood POSITIVE (NEGATIVE) H 06/12/18 19:12 Valproic Acid 30.7 ug/mL (50.0-100.0) L 06/12/18 18:05 Levetiracetam 12.7 ug/mL (10.0-40.0) 06/12/18 18:00 - Physical Exam Vitals and I&O: Vital Signs Temp 98.7 F 06/16/18 19:45 Pulse 89 06/16/18 19:45 Resp 20 06/16/18 19:45 BP 111/60 06/16/18 19:45 Pulse Ox 97 06/16/18 19:45 Intake & Output 06/16/18 06/16/18 06/17/18 06:59 18:59 06:59 Intake Total 200 Balance 200 Weight (lbs) 63.185 kg 63.185 kg Intake: Intake, IV Amount 200 Meropenem 500 mg In 200 Sodium Chloride 0.9% 100 ml @ 100 mls/hr IV Q8H [facility] Rx#:[id number] Other: # Voids 2 3 # Bowel Movements 1 3 Stool Characteristics Soft Soft Brown Brown Black Black Weight Source Bedscale Bedscale Active Medications: Current Medications Acetaminophen (Tylenol) 650 mg PO Q4HR PRN PRN Reason: Pain Or Fever above 101 Stop: 08/12/18 00:56 Last Admin: 06/14/18 16:16 Dose: 650 mg Artificial Tears (Lubrifresh Ophth Oint) 1 appl EACH EYE BID MIGUE Stop: 08/12/18 08:59 Last Admin: 06/16/18 16:17 Dose: 1 appl Ascorbic Acid (Vitamin C) 500 mg GT BID MIGUE Stop: 08/12/18 08:59 Last Admin: 06/16/18 16:17 Dose: 500 mg Aspirin (Aspirin Chewable) 81 mg GT DAILY MIGUE Stop: 08/12/18 08:59 Last Admin: 06/16/18 09:13 Dose: 81 mg [place] Oil/[place] Balsam/Trypsin (Venelex) 1 appl TP DAILY MIGUE Stop: 08/15/18 08:59 Last Admin: 06/16/18 10:08 Dose: 1 appl Donepezil HCl (Aricept) 10 mg GT HS MIGUE Stop: 08/12/18 20:59 Last Admin: 06/15/18 21:47 Dose: 10 mg Meropenem 500 mg/ Sodium (Chloride) 100 mls @ 100 mls/hr IV Q8H MIGUE Stop: 08/12/18 12:59 Last Admin: 06/16/18 13:44 Dose: 100 mls/hr Levetiracetam (Keppra) 500 mg GT Q12HR MIGUE Stop: 08/12/18 08:59 Last Admin: 06/16/18 10:08 Dose: 500 mg Memantine (Namenda) 5 mg GT DAILY MIGUE Stop: 08/12/18 08:59 Last Admin: 06/16/18 09:13 Dose: 5 mg Nystatin (Nystop) 100,000 units TP BID MIGUE Stop: 08/12/18 08:59 Last Admin: 06/16/18 16:17 Dose: 100,000 units Ondansetron HCl (Zofran) 4 mg IV Q6H PRN PRN Reason: Nausea / Vomiting Stop: 08/12/18 00:57 Last Admin: 06/13/18 11:56 Dose: 4 mg Valproate Sodium (Depakene) 250 mg GT Q12HR MIGUE Stop: 08/12/18 08:59 Last Admin: 06/16/18 09:13 Dose: 250 mg Cardiovascular: Regular rate Lungs: Clear to auscultation Abdomen: Soft, no Tender - Procedures Procedures: Procedures Procedure Code Date DRAINAGE OF SKIN ABSCESS 85859 10/09/14 EXCISION OF STOMACH, PYLORUS, ENDO, DIAGN [id number] 05/13/18 OTHER SKIN & SUBQ I D 86.04 10/09/14 Assessment/Plan - Problem List Patient Problems: All Active Problems TARRY STOOLS (Acute) - Assessment Assessment: Complicated ESBL UTI 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 Dementia Dysphagia Seizure disorder - Plan Plan: Continue IV Merpenem Tube feeding Seizure meds Nutritional Asmnt/Malnutr-PDOC - Dietary Evaluation Malnutrition Findings (Please click <Entered> for more info): Nutritional Asmnt/Malnutrition Start: 06/13/18 11: 18 Text: Status: Complete Freq: Protocol: Document 06/13/18 11:20 [email or web address] (Rec: 06/13/18 11:36 [email or web address] RIBEIRO- FNS1) Nutritional Asmnt/Malnutrition Patient General Information Nutritional Screening High Risk Diagnosis Pyelonephritis Pertinent Medical Hx/Surgical Hx Ulcer sacral, dry eye syndrome , contracture of muscle lower leg, cellulitis of abdominal wall, pressure ulcer, basal cell carcinoma Subjective Information Per nursing notes, tolerating tbe feednig well with no residuals. Current tube feeding regimen provides 1000 ml/day, 1200 kcal, 55gm protein, 807ml free water ( 1407 ml with FWF). Current Diet Order/ Nutrition Support Jevity 1.2 @ 50 ml/hr x 20 hours, (on 2pm off 10am) FWF 200ml q 8hrs Patient / S.O Not Indicated Pertinent Medications vitamin C, zofran Pertinent Labs (06/12) Albumin 3.3 Nutritional Hx/Data Height 1.63 m Height (Calculated Centimeters) 162.6 Current Weight (lbs) 61.689 kg Weight (Calculated Kilograms) 61.7 Weight (Calculated Grams) 98231.6 [place] Body Weight 120 % [place] Body Weight 113 Body Mass Index (BMI) 23.3 Recent Weight Change No Weight Status Approriate GI Symptoms GI Symptoms None Last BM None noted in EMR since admission Difficult in: Chewing Swallowing Food Allergies No Cultural/Ethnic/Faith Belief none indicated Usual diet at home Fibersource at 50 ml/hr x 20 hours (Equivalent to Jevity 1. 2) Skin Integrity/Comment: Caleb Carranza Estimated Nutritional Goals BEE in Kcals: Using Current wt Calories/Kcals/Kg 61.8 kg CBW 25-30 kcal/kg Kcals Calculated ~0771-0719 kcal/day Protein: Using Current wt Protein g/kgm/kg Protein Calculated ~60 gm/day Fluid: ml ~0314-1173 ml/day (1 ml/kcal) Nutritional Problem 1. Problem Problem Inadequate enteral infusion related to Etiology low TF rate aeb Signs/Symptoms: meeting ~75 of calorie and ~90 % protein goals Intervention/Recommendation Comments 1. Consider increasing Tube feeding Jevity 1.2 to 50ml/hr continuously (x 24 hours) to better meet nutrient needs. Expected Outcomes/Goals Expected Outcomes/Goals Tolerates tube feeding at goal rate to meet 100% of nutrient needs, weight stable, labs WNL F/U MR
[2018-06-17] MEDS: Meropenem 500 MG in Sodium Chloride 0.9% 100 ML IV SCH ×3 (06:12→21:04)
[2018-06-17 06:57] LABS: HEMATOCRIT 41.9 % (41.0-60); HEMOGLOBIN 14.1 gm/dL (12-16); MEAN CELL VOLUME 91.6 fl (81-100); MEAN CORPUSCULAR HEMOGLOBIN 30.7 pg (27.0-31.0); MEAN CORPUSCULAR HGB CONC 33.5 pg (28.0-36.0); MEAN PLATELET VOLUME 9.3 fl; PLATELET COUNT 251 Th/cmm (150-400); RED BLOOD COUNT 4.58 Mil/cmm (3.80-5.20); RED CELL DISTRIBUTION WIDTH 12.8 % (11.5-20.0); WHITE BLOOD COUNT 7.3 Th/cmm (4.8-10.8)
[2018-06-17 07:22] LABS: ANION GAP 12.3 (7.0-16.0); BUN - UREA NITROGEN 13 mg/dL (7-25); CALCIUM SERUM 8.9 mg/dL (8.6-10.3); CARBON DIOXIDE 25.7 mEq/L (21.0-31.0); CHLORIDE 105 mEq/L (98-107); CREATININE - SERUM 0.6 mg/dL (0.6-1.2); GFR AFRICAN-AMERICAN > 60.0 ml/min (>90); GFR NON AFRICAN-AMERICAN > 60.0 ml/min; GLUCOSE 121 mg/dL (70-105); SODIUM SERUM 139 mEq/L (136-145)
[2018-06-17 07:53] LABS: BAND NEUTROPHILE 0 % (0-10); LYMPHOCYTE 11 % (20-50); MONOCYTE 14 % (2-10); NEUTROPHILS 72 % (40-80)
[2018-06-17 07:54] LABS: BASOPHIL 0 % (0-3); EOSINOPHIL 3 % (0-5)
[2018-06-17] MEDS: Venelex 60gm Tube TP SCH (09:06)
[2018-06-17] MEDS: Artificial Tear Ophth Oint 3.5 Gm Tube EACH EYE SCH ×2 (09:06→16:04)
[2018-06-17] MEDS: Multivitamin w/ Minerals Tab GT SCH (09:07)
[2018-06-17] MEDS: Levetiracetam 500 mg/5mL 5mL UDSyr *for ORAL USE ONLY GT SCH ×2 (09:07→21:04)
[2018-06-17] MEDS: Aspirin 81mg Chewable Tab GT SCH (09:07)
[2018-06-17] MEDS: NYSTATIN 100000 UNITS/GM POWD TP SCH ×2 (16:04)
--- NOTE | 2018-06-17 22:08 | General Progress Note ---
Subjective - Review of Systems Service Date: 06/17/18 Subjective: Patient seems to be doing fine afebrile non verbal Objective - Results Result Diagrams: 06/17/18 06:00 06/17/18 06:00 Recent Labs: Laboratory Last Values WBC 7.3 Th/cmm (4.8-10.8) 06/17/18 06:00 RBC 4.58 Mil/cmm (3.80-5.20) 06/17/18 06:00 Hgb 14.1 gm/dL (12-16) 06/17/18 06:00 Hct 41.9 % (41.0-60) 06/17/18 06:00 MCV 91.6 fl (81-100) 06/17/18 06:00 MCH 30.7 pg (27.0-31.0) 06/17/18 06:00 MCHC Differential 33.5 pg (28.0-36.0) 06/17/18 06:00 RDW 12.8 % (11.5-20.0) 06/17/18 06:00 Plt Count 251 Th/cmm (150-400) 06/17/18 06:00 MPV 9.3 fl 06/17/18 06:00 Add Manual Diff YES 06/17/18 06:00 Band Neutrophils % 0 % (0-10) 06/17/18 06:00 Neutrophils (Manual) 72 % (40-80) 06/17/18 06:00 Lymphocytes 11 % (20-50) L 06/17/18 06:00 Monocytes 14 % (2-10) H 06/17/18 06:00 Eosinophils 3 % (0-5) 06/17/18 06:00 Basophils 0 % (0-3) 06/17/18 06:00 Platelet Estimate ADEQUATE (NORMAL) 06/13/18 06:25 RBC Morph Micro Appear NORMAL (NORMAL) 06/13/18 06:25 PT 10.8 SECONDS (9.5-11.5) 06/12/18 18:05 INR 1.04 (0.5-1.4) 06/12/18 18:05 PTT (Actin FS) 28.3 SECONDS (26.0-38.0) 06/12/18 18:05 Sodium 139 mEq/L (136-145) 06/17/18 06:00 Potassium 4.0 mEq/L (3.5-5.1) 06/17/18 06:00 Chloride 105 mEq/L (98-107) 06/17/18 06:00 Carbon Dioxide 25.7 mEq/L (21.0-31.0) 06/17/18 06:00 Anion Gap 12.3 (7.0-16.0) 06/17/18 06:00 BUN 13 mg/dL (7-25) 06/17/18 06:00 Creatinine 0.6 mg/dL (0.6-1.2) 06/17/18 06:00 Est GFR ( Amer) > 60.0 ml/min (>90) 06/17/18 06:00 Est GFR (Non-Af Amer) > 60.0 ml/min 06/17/18 06:00 BUN/Creatinine Ratio 21.7 06/17/18 06:00 Glucose 121 mg/dL (70-105) H 06/17/18 06:00 Calcium 8.9 mg/dL (8.6-10.3) 06/17/18 06:00 Total Bilirubin 0.5 mg/dL (0.3-1.0) 06/12/18 18:05 AST 19 U/L (13-39) 06/12/18 18:05 ALT 12 U/L (7-52) 06/12/18 18:05 Alkaline Phosphatase 89 U/L (34-104) 06/12/18 18:05 Troponin I 0.01 ng/mL (0.01-0.05) 06/12/18 18:05 Total Protein 6.6 gm/dL (6.0-8.3) 06/12/18 18:05 Albumin 3.3 gm/dL (3.7-5.3) L 06/12/18 18:05 Globulin 3.3 gm/dL 06/12/18 18:05 Albumin/Globulin Ratio 1.0 (1.0-1.8) 06/12/18 18:05 Triglycerides 126 mg/dL (<150) 06/12/18 18:00 Cholesterol 109 mg/dL (<200) 06/12/18 18:00 LDL Cholesterol Direct 68 mg/dL (75-193) L 06/12/18 18:00 HDL Cholesterol 36 mg/dL (23-92) 06/12/18 18:00 TSH 1.04 uIU/ml (0.34-5.60) 06/12/18 18:05 Urine Source CATH 06/12/18 18:30 Urine Color YELLOW 06/12/18 18:30 Urine Clarity HAZY (CLEAR) 06/12/18 18:30 Urine pH 8.5 (4.6 - 8.0) 06/12/18 18:30 Ur Specific [place] 1.010 (1.005-1.030) 06/12/18 18:30 Urine Protein 100 mg/dL (NEGATIVE) H 06/12/18 18:30 Urine Glucose (UA) NEGATIVE mg/dL (NEGATIVE) 06/12/18 18:30 Urine Ketones TRACE mg/dL (NEGATIVE) 06/12/18 18:30 Urine Blood LARGE (NEGATIVE) H 06/12/18 18:30 Urine Nitrate POSITIVE (NEGATIVE) H 06/12/18 18:30 Urine Bilirubin NEGATIVE (NEGATIVE) 06/12/18 18:30 Urine Urobilinogen 0.2 E.U./dL (0.2 - 1.0) 06/12/18 18:30 Ur Leukocyte Esterase LARGE (NEGATIVE) H 06/12/18 18:30 Urine RBC 10-25 /hpf (0-5) H 06/12/18 18:30 Urine WBC 25-50 /hpf (0-5) H 06/12/18 18:30 Ur Epithelial Cells MODERATE /lpf (FEW) 06/12/18 18:30 Urine Bacteria MANY /hpf (NONE SEEN) H 06/12/18 18:30 Stool Occult Blood POSITIVE (NEGATIVE) H 06/12/18 19:12 Valproic Acid 30.7 ug/mL (50.0-100.0) L 06/12/18 18:05 Levetiracetam 12.7 ug/mL (10.0-40.0) 06/12/18 18:00 - Physical Exam Vitals and I&O: Vital Signs Temp 98.3 F 06/17/18 16:00 Pulse 104 06/17/18 16:00 Resp 20 06/17/18 16:00 BP 109/60 06/17/18 16:00 Pulse Ox 92 06/17/18 16:00 Intake & Output 06/17/18 06/17/18 06/18/18 06:59 18:59 06:59 Intake Total 100 200 Output Total 2 Balance 98 200 Weight (lbs) 76.204 kg 76.204 kg Intake: Intake, IV Amount 100 200 Meropenem 500 mg In 100 200 Sodium Chloride 0.9% 100 ml @ 100 mls/hr IV Q8H [facility] Rx#:[id number] Output: Urine 2 Other: # Voids 3 # Bowel Movements 1 2 Stool Characteristics Soft Soft Brown Brown Black Black Weight Source Bedscale Bedscale Active Medications: Current Medications Acetaminophen (Tylenol) 650 mg PO Q4HR PRN PRN Reason: Pain Or Fever above 101 Stop: 08/12/18 00:56 Last Admin: 06/14/18 16:16 Dose: 650 mg Artificial Tears (Lubrifresh Ophth Oint) 1 appl EACH EYE BID MIGUE Stop: 08/12/18 08:59 Last Admin: 06/17/18 16:04 Dose: 1 appl Ascorbic Acid (Vitamin C) 500 mg GT BID MIGUE Stop: 08/12/18 08:59 Last Admin: 06/17/18 16:03 Dose: 500 mg Aspirin (Aspirin Chewable) 81 mg GT DAILY MIGUE Stop: 08/12/18 08:59 Last Admin: 06/17/18 09:07 Dose: 81 mg [place] Oil/[place] Balsam/Trypsin (Venelex) 1 appl TP DAILY MIGUE Stop: 08/15/18 08:59 Last Admin: 06/17/18 09:06 Dose: 1 appl Donepezil HCl (Aricept) 10 mg GT HS MIGUE Stop: 08/12/18 20:59 Last Admin: 06/17/18 21:05 Dose: 10 mg Meropenem 500 mg/ Sodium (Chloride) 100 mls @ 100 mls/hr IV Q8H MIGUE Stop: 08/12/18 12:59 Last Admin: 06/17/18 21:04 Dose: 100 mls/hr Levetiracetam (Keppra) 500 mg GT Q12HR MIGUE Stop: 08/12/18 08:59 Last Admin: 06/17/18 21:04 Dose: 500 mg Memantine (Namenda) 5 mg GT DAILY MIGUE Stop: 08/12/18 08:59 Last Admin: 06/17/18 09:07 Dose: 5 mg Nystatin (Nystop) 100,000 units TP BID MIGUE Stop: 08/12/18 08:59 Last Admin: 06/17/18 16:04 Dose: 100,000 units Ondansetron HCl (Zofran) 4 mg IV Q6H PRN PRN Reason: Nausea / Vomiting Stop: 08/12/18 00:57 Last Admin: 06/13/18 11:56 Dose: 4 mg Valproate Sodium (Depakene) 250 mg GT Q12HR MIGUE Stop: 08/12/18 08:59 Last Admin: 06/17/18 21:04 Dose: 250 mg Cardiovascular: Regular rate Lungs: Clear to auscultation Abdomen: Soft, no Tender - Procedures Procedures: Procedures Procedure Code Date DRAINAGE OF SKIN ABSCESS 37872 10/09/14 EXCISION OF STOMACH, PYLORUS, ENDO, DIAGN [id number] 05/13/18 OTHER SKIN & SUBQ I D 86.04 10/09/14 Assessment/Plan - Problem List Patient Problems: All Active Problems TARRY STOOLS (Acute) - Assessment Assessment: Complicated ESBL UTI 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 Dementia Dysphagia Seizure disorder - Plan Plan: Continue IV Merpenem Tube feeding Seizure meds DC back to [facility] with IV abx Nutritional Asmnt/Malnutr-PDOC - Dietary Evaluation Malnutrition Findings (Please click <Entered> for more info): Nutritional Asmnt/Malnutrition Start: 06/13/18 11: 18 Text: Status: Complete Freq: Protocol: Document 06/13/18 11:20 MMULN (Rec: 06/13/18 11:36 [email or web address] RIBEIRO- [email or web address]) Nutritional Asmnt/Malnutrition Patient General Information Nutritional Screening High Risk Diagnosis Pyelonephritis Pertinent Medical Hx/Surgical Hx Ulcer sacral, dry eye syndrome , contracture of muscle lower leg, cellulitis of abdominal wall, pressure ulcer, basal cell carcinoma Subjective Information Per nursing notes, tolerating tbe feednig well with no residuals. Current tube feeding regimen provides 1000 ml/day, 1200 kcal, 55gm protein, 807ml free water ( 1407 ml with FWF). Current Diet Order/ Nutrition Support Jevity 1.2 @ 50 ml/hr x 20 hours, (on 2pm off 10am) FWF 200ml q 8hrs Patient / S.O Not Indicated Pertinent Medications vitamin C, zofran Pertinent Labs (06/12) Albumin 3.3 Nutritional Hx/Data Height 1.63 m Height (Calculated Centimeters) 162.6 Current Weight (lbs) 61.689 kg Weight (Calculated Kilograms) 61.7 Weight (Calculated Grams) 24348.6 [place] Body Weight 120 % [place] Body Weight 113 Body Mass Index (BMI) 23.3 Recent Weight Change No Weight Status Approriate GI Symptoms GI Symptoms None Last BM None noted in EMR since admission Difficult in: Chewing Swallowing Food Allergies No Cultural/Ethnic/Anglican Belief none indicated Usual diet at home Fibersource at 50 ml/hr x 20 hours (Equivalent to Jevity 1. 2) Skin Integrity/Comment: Caleb Carranza Estimated Nutritional Goals BEE in Kcals: Using Current wt Calories/Kcals/Kg 61.8 kg CBW 25-30 kcal/kg Kcals Calculated ~6887-0767 kcal/day Protein: Using Current wt Protein g/kgm/kg Protein Calculated ~60 gm/day Fluid: ml ~3113-2855 ml/day (1 ml/kcal) Nutritional Problem 1. Problem Problem Inadequate enteral infusion related to Etiology low TF rate aeb Signs/Symptoms: meeting ~75 of calorie and ~90 % protein goals Intervention/Recommendation Comments 1. Consider increasing Tube feeding Jevity 1.2 to 50ml/hr continuously (x 24 hours) to better meet nutrient needs. Expected Outcomes/Goals Expected Outcomes/Goals Tolerates tube feeding at goal rate to meet 100% of nutrient needs, weight stable, labs WNL F/U MR
--- NOTE | 2018-06-18 01:12 | Infectious Disease Prog Note ---
Infectious Disease Subjective - Review of Systems Service Date: 06/17/18 Subjective: no fever. Infectious Disease Objective - Results Result Diagrams: 06/17/18 06:00 06/17/18 06:00 Recent Labs: Laboratory Last Values WBC 7.3 Th/cmm (4.8-10.8) 06/17/18 06:00 RBC 4.58 Mil/cmm (3.80-5.20) 06/17/18 06:00 Hgb 14.1 gm/dL (12-16) 06/17/18 06:00 Hct 41.9 % (41.0-60) 06/17/18 06:00 MCV 91.6 fl (81-100) 06/17/18 06:00 MCH 30.7 pg (27.0-31.0) 06/17/18 06:00 MCHC Differential 33.5 pg (28.0-36.0) 06/17/18 06:00 RDW 12.8 % (11.5-20.0) 06/17/18 06:00 Plt Count 251 Th/cmm (150-400) 06/17/18 06:00 MPV 9.3 fl 06/17/18 06:00 Add Manual Diff YES 06/17/18 06:00 Band Neutrophils % 0 % (0-10) 06/17/18 06:00 Neutrophils (Manual) 72 % (40-80) 06/17/18 06:00 Lymphocytes 11 % (20-50) L 06/17/18 06:00 Monocytes 14 % (2-10) H 06/17/18 06:00 Eosinophils 3 % (0-5) 06/17/18 06:00 Basophils 0 % (0-3) 06/17/18 06:00 Platelet Estimate ADEQUATE (NORMAL) 06/13/18 06:25 RBC Morph Micro Appear NORMAL (NORMAL) 06/13/18 06:25 PT 10.8 SECONDS (9.5-11.5) 06/12/18 18:05 INR 1.04 (0.5-1.4) 06/12/18 18:05 PTT (Actin FS) 28.3 SECONDS (26.0-38.0) 06/12/18 18:05 Sodium 139 mEq/L (136-145) 06/17/18 06:00 Potassium 4.0 mEq/L (3.5-5.1) 06/17/18 06:00 Chloride 105 mEq/L (98-107) 06/17/18 06:00 Carbon Dioxide 25.7 mEq/L (21.0-31.0) 06/17/18 06:00 Anion Gap 12.3 (7.0-16.0) 06/17/18 06:00 BUN 13 mg/dL (7-25) 06/17/18 06:00 Creatinine 0.6 mg/dL (0.6-1.2) 06/17/18 06:00 Est GFR ( Amer) > 60.0 ml/min (>90) 06/17/18 06:00 Est GFR (Non-Af Amer) > 60.0 ml/min 06/17/18 06:00 BUN/Creatinine Ratio 21.7 06/17/18 06:00 Glucose 121 mg/dL (70-105) H 06/17/18 06:00 Calcium 8.9 mg/dL (8.6-10.3) 06/17/18 06:00 Total Bilirubin 0.5 mg/dL (0.3-1.0) 06/12/18 18:05 AST 19 U/L (13-39) 06/12/18 18:05 ALT 12 U/L (7-52) 06/12/18 18:05 Alkaline Phosphatase 89 U/L (34-104) 06/12/18 18:05 Troponin I 0.01 ng/mL (0.01-0.05) 06/12/18 18:05 Total Protein 6.6 gm/dL (6.0-8.3) 06/12/18 18:05 Albumin 3.3 gm/dL (3.7-5.3) L 06/12/18 18:05 Globulin 3.3 gm/dL 06/12/18 18:05 Albumin/Globulin Ratio 1.0 (1.0-1.8) 06/12/18 18:05 Triglycerides 126 mg/dL (<150) 06/12/18 18:00 Cholesterol 109 mg/dL (<200) 06/12/18 18:00 LDL Cholesterol Direct 68 mg/dL (75-193) L 06/12/18 18:00 HDL Cholesterol 36 mg/dL (23-92) 06/12/18 18:00 TSH 1.04 uIU/ml (0.34-5.60) 06/12/18 18:05 Urine Source CATH 06/12/18 18:30 Urine Color YELLOW 06/12/18 18:30 Urine Clarity HAZY (CLEAR) 06/12/18 18:30 Urine pH 8.5 (4.6 - 8.0) 06/12/18 18:30 Ur Specific [place] 1.010 (1.005-1.030) 06/12/18 18:30 Urine Protein 100 mg/dL (NEGATIVE) H 06/12/18 18:30 Urine Glucose (UA) NEGATIVE mg/dL (NEGATIVE) 06/12/18 18:30 Urine Ketones TRACE mg/dL (NEGATIVE) 06/12/18 18:30 Urine Blood LARGE (NEGATIVE) H 06/12/18 18:30 Urine Nitrate POSITIVE (NEGATIVE) H 06/12/18 18:30 Urine Bilirubin NEGATIVE (NEGATIVE) 06/12/18 18:30 Urine Urobilinogen 0.2 E.U./dL (0.2 - 1.0) 06/12/18 18:30 Ur Leukocyte Esterase LARGE (NEGATIVE) H 06/12/18 18:30 Urine RBC 10-25 /hpf (0-5) H 06/12/18 18:30 Urine WBC 25-50 /hpf (0-5) H 06/12/18 18:30 Ur Epithelial Cells MODERATE /lpf (FEW) 06/12/18 18:30 Urine Bacteria MANY /hpf (NONE SEEN) H 06/12/18 18:30 Stool Occult Blood POSITIVE (NEGATIVE) H 06/12/18 19:12 Valproic Acid 30.7 ug/mL (50.0-100.0) L 06/12/18 18:05 Levetiracetam 12.7 ug/mL (10.0-40.0) 06/12/18 18:00 - Physical Exam Vitals and I&O: Vital Signs Temp 98.0 F 06/18/18 00:00 Pulse 112 06/18/18 00:00 Resp 18 06/18/18 00:00 BP 105/74 06/18/18 00:00 Pulse Ox 96 06/18/18 00:00 Intake & Output 06/17/18 06/17/18 06/18/18 06:59 18:59 06:59 Intake Total 100 200 100 Output Total 2 Balance 98 200 100 Weight (lbs) 76.204 kg 76.204 kg Intake: Intake, IV Amount 100 200 100 Meropenem 500 mg In 100 200 100 Sodium Chloride 0.9% 100 ml @ 100 mls/hr IV Q8H [facility] Rx#:[id number] Output: Urine 2 Other: # Voids 3 # Bowel Movements 1 2 Stool Characteristics Soft Soft Brown Brown Black Black Weight Source Bedscale Bedscale Active Medications: Current Medications Acetaminophen (Tylenol) 650 mg PO Q4HR PRN PRN Reason: Pain Or Fever above 101 Stop: 08/12/18 00:56 Last Admin: 06/14/18 16:16 Dose: 650 mg Artificial Tears (Lubrifresh Ophth Oint) 1 appl EACH EYE BID MIGUE Stop: 08/12/18 08:59 Last Admin: 06/17/18 16:04 Dose: 1 appl Ascorbic Acid (Vitamin C) 500 mg GT BID MIGUE Stop: 08/12/18 08:59 Last Admin: 06/17/18 16:03 Dose: 500 mg Aspirin (Aspirin Chewable) 81 mg GT DAILY MIGUE Stop: 08/12/18 08:59 Last Admin: 06/17/18 09:07 Dose: 81 mg [place] Oil/[place] Balsam/Trypsin (Venelex) 1 appl TP DAILY MIGUE Stop: 08/15/18 08:59 Last Admin: 06/17/18 09:06 Dose: 1 appl Donepezil HCl (Aricept) 10 mg GT HS MIGUE Stop: 08/12/18 20:59 Last Admin: 06/17/18 21:05 Dose: 10 mg Meropenem 500 mg/ Sodium (Chloride) 100 mls @ 100 mls/hr IV Q8H MIGUE Stop: 08/12/18 12:59 Last Infusion: 06/17/18 22:45 Dose: Infused Levetiracetam (Keppra) 500 mg GT Q12HR MIGUE Stop: 08/12/18 08:59 Last Admin: 06/17/18 21:04 Dose: 500 mg Memantine (Namenda) 5 mg GT DAILY MIGUE Stop: 08/12/18 08:59 Last Admin: 06/17/18 09:07 Dose: 5 mg Nystatin (Nystop) 100,000 units TP BID MIGUE Stop: 08/12/18 08:59 Last Admin: 06/17/18 16:04 Dose: 100,000 units Ondansetron HCl (Zofran) 4 mg IV Q6H PRN PRN Reason: Nausea / Vomiting Stop: 08/12/18 00:57 Last Admin: 06/13/18 11:56 Dose: 4 mg Valproate Sodium (Depakene) 250 mg GT Q12HR MIGUE Stop: 08/12/18 08:59 Last Admin: 06/17/18 21:04 Dose: 250 mg General: no acute distress HEENT: atraumatic, normocephalic, PERRLA, EOMI Neck: supple, no thyromegaly Cardiovascular: S1S2, regular Lungs: clear to auscultation bilaterally, clear to percussion Abdomen: soft, no tender, no distended, no mass, no rebound Extremities: no cyanosis, no clubbing Neurological: awake, alert Skin: intact - Procedures Procedures: Procedures Procedure Code Date DRAINAGE OF SKIN ABSCESS 23603 10/09/14 EXCISION OF STOMACH, PYLORUS, ENDO, DIAGN [id number] 05/13/18 OTHER SKIN & SUBQ I D 86.04 10/09/14 Infectious Disease Assmt/Plan - Problem List Patient Problems: All Active Problems TARRY STOOLS (Acute) - Assessment Assessment: 1. Urinary tract infection, likely ESBL producing organism as the patient has history of ESBL positive Proteus organism infection in the past. 2. Hydronephrosis, right side. 3. May have neurogenic bladder. 4. Cerebrovascular accident. 5. Dementia. 6. History of peptic ulcer disease. 7. Hyperlipidemia. - Plan Plan: continue meropenem. Follow up culture report and go from there. may change meropenem to invanz 1G iv daily for 10 days ( end date 06/23/3018) Nutritional Asmnt/Malnutr-PDOC - Dietary Evaluation Malnutrition Findings (Please click <Entered> for more info): Nutritional Asmnt/Malnutrition Start: 06/13/18 11: 18 Text: Status: Complete Freq: Protocol: Document 06/13/18 11:20 MMULHERN (Rec: 06/13/18 11:36 MMULHERN QUINTIN- FNS1) Nutritional Asmnt/Malnutrition Patient General Information Nutritional Screening High Risk Diagnosis Pyelonephritis Pertinent Medical Hx/Surgical Hx Ulcer sacral, dry eye syndrome , contracture of muscle lower leg, cellulitis of abdominal wall, pressure ulcer, basal cell carcinoma Subjective Information Per nursing notes, tolerating tbe feednig well with no residuals. Current tube feeding regimen provides 1000 ml/day, 1200 kcal, 55gm protein, 807ml free water ( 1407 ml with FWF). Current Diet Order/ Nutrition Support Jevity 1.2 @ 50 ml/hr x 20 hours, (on 2pm off 10am) FWF 200ml q 8hrs Patient / S.O Not Indicated Pertinent Medications vitamin C, zofran Pertinent Labs (06/12) Albumin 3.3 Nutritional Hx/Data Height 1.63 m Height (Calculated Centimeters) 162.6 Current Weight (lbs) 61.689 kg Weight (Calculated Kilograms) 61.7 Weight (Calculated Grams) 26737.6 [place] Body Weight 120 % [place] Body Weight 113 Body Mass Index (BMI) 23.3 Recent Weight Change No Weight Status Approriate GI Symptoms GI Symptoms None Last BM None noted in EMR since admission Difficult in: Chewing Swallowing Food Allergies No Cultural/Ethnic/Adventism Belief none indicated Usual diet at home Fibersource at 50 ml/hr x 20 hours (Equivalent to Jevity 1. 2) Skin Integrity/Comment: Caleb Carranza Estimated Nutritional Goals BEE in Kcals: Using Current wt Calories/Kcals/Kg 61.8 kg CBW 25-30 kcal/kg Kcals Calculated ~1429-0089 kcal/day Protein: Using Current wt Protein g/kgm/kg Protein Calculated ~60 gm/day Fluid: ml ~9941-8190 ml/day (1 ml/kcal) Nutritional Problem 1. Problem Problem Inadequate enteral infusion related to Etiology low TF rate aeb Signs/Symptoms: meeting ~75 of calorie and ~90 % protein goals Intervention/Recommendation Comments 1. Consider increasing Tube feeding Jevity 1.2 to 50ml/hr continuously (x 24 hours) to better meet nutrient needs. Expected Outcomes/Goals Expected Outcomes/Goals Tolerates tube feeding at goal rate to meet 100% of nutrient needs, weight stable, labs WNL F/U MR 06/16-
[2018-06-18] MEDS: Meropenem 500 MG in Sodium Chloride 0.9% 100 ML IV SCH ×2 (05:12→13:39)
[2018-06-18] MEDS: Aspirin 81mg Chewable Tab GT SCH (08:33)
[2018-06-18] MEDS: Levetiracetam 500 mg/5mL 5mL UDSyr *for ORAL USE ONLY GT SCH (08:33)
[2018-06-18] MEDS: Artificial Tear Ophth Oint 3.5 Gm Tube EACH EYE SCH (08:33)
[2018-06-18] MEDS: Multivitamin w/ Minerals Tab GT SCH (08:33)
[2018-06-18] MEDS: NYSTATIN 100000 UNITS/GM POWD TP SCH (08:37)
[2018-06-18] MEDS: Venelex 60gm Tube TP SCH (08:37)
--- NOTE | 2018-06-18 14:14 | Infectious Disease Prog Note ---
Infectious Disease Subjective - Review of Systems Service Date: 06/18/18 Subjective: no fever. Infectious Disease Objective - Results Result Diagrams: 06/17/18 06:00 06/17/18 06:00 Recent Labs: Laboratory Last Values WBC 7.3 Th/cmm (4.8-10.8) 06/17/18 06:00 RBC 4.58 Mil/cmm (3.80-5.20) 06/17/18 06:00 Hgb 14.1 gm/dL (12-16) 06/17/18 06:00 Hct 41.9 % (41.0-60) 06/17/18 06:00 MCV 91.6 fl (81-100) 06/17/18 06:00 MCH 30.7 pg (27.0-31.0) 06/17/18 06:00 MCHC Differential 33.5 pg (28.0-36.0) 06/17/18 06:00 RDW 12.8 % (11.5-20.0) 06/17/18 06:00 Plt Count 251 Th/cmm (150-400) 06/17/18 06:00 MPV 9.3 fl 06/17/18 06:00 Add Manual Diff YES 06/17/18 06:00 Band Neutrophils % 0 % (0-10) 06/17/18 06:00 Neutrophils (Manual) 72 % (40-80) 06/17/18 06:00 Lymphocytes 11 % (20-50) L 06/17/18 06:00 Monocytes 14 % (2-10) H 06/17/18 06:00 Eosinophils 3 % (0-5) 06/17/18 06:00 Basophils 0 % (0-3) 06/17/18 06:00 Platelet Estimate ADEQUATE (NORMAL) 06/13/18 06:25 RBC Morph Micro Appear NORMAL (NORMAL) 06/13/18 06:25 PT 10.8 SECONDS (9.5-11.5) 06/12/18 18:05 INR 1.04 (0.5-1.4) 06/12/18 18:05 PTT (Actin FS) 28.3 SECONDS (26.0-38.0) 06/12/18 18:05 Sodium 139 mEq/L (136-145) 06/17/18 06:00 Potassium 4.0 mEq/L (3.5-5.1) 06/17/18 06:00 Chloride 105 mEq/L (98-107) 06/17/18 06:00 Carbon Dioxide 25.7 mEq/L (21.0-31.0) 06/17/18 06:00 Anion Gap 12.3 (7.0-16.0) 06/17/18 06:00 BUN 13 mg/dL (7-25) 06/17/18 06:00 Creatinine 0.6 mg/dL (0.6-1.2) 06/17/18 06:00 Est GFR ( Amer) > 60.0 ml/min (>90) 06/17/18 06:00 Est GFR (Non-Af Amer) > 60.0 ml/min 06/17/18 06:00 BUN/Creatinine Ratio 21.7 06/17/18 06:00 Glucose 121 mg/dL (70-105) H 06/17/18 06:00 Calcium 8.9 mg/dL (8.6-10.3) 06/17/18 06:00 Total Bilirubin 0.5 mg/dL (0.3-1.0) 06/12/18 18:05 AST 19 U/L (13-39) 06/12/18 18:05 ALT 12 U/L (7-52) 06/12/18 18:05 Alkaline Phosphatase 89 U/L (34-104) 06/12/18 18:05 Troponin I 0.01 ng/mL (0.01-0.05) 06/12/18 18:05 Total Protein 6.6 gm/dL (6.0-8.3) 06/12/18 18:05 Albumin 3.3 gm/dL (3.7-5.3) L 06/12/18 18:05 Globulin 3.3 gm/dL 06/12/18 18:05 Albumin/Globulin Ratio 1.0 (1.0-1.8) 06/12/18 18:05 Triglycerides 126 mg/dL (<150) 06/12/18 18:00 Cholesterol 109 mg/dL (<200) 06/12/18 18:00 LDL Cholesterol Direct 68 mg/dL (75-193) L 06/12/18 18:00 HDL Cholesterol 36 mg/dL (23-92) 06/12/18 18:00 TSH 1.04 uIU/ml (0.34-5.60) 06/12/18 18:05 Urine Source CATH 06/12/18 18:30 Urine Color YELLOW 06/12/18 18:30 Urine Clarity HAZY (CLEAR) 06/12/18 18:30 Urine pH 8.5 (4.6 - 8.0) 06/12/18 18:30 Ur Specific [place] 1.010 (1.005-1.030) 06/12/18 18:30 Urine Protein 100 mg/dL (NEGATIVE) H 06/12/18 18:30 Urine Glucose (UA) NEGATIVE mg/dL (NEGATIVE) 06/12/18 18:30 Urine Ketones TRACE mg/dL (NEGATIVE) 06/12/18 18:30 Urine Blood LARGE (NEGATIVE) H 06/12/18 18:30 Urine Nitrate POSITIVE (NEGATIVE) H 06/12/18 18:30 Urine Bilirubin NEGATIVE (NEGATIVE) 06/12/18 18:30 Urine Urobilinogen 0.2 E.U./dL (0.2 - 1.0) 06/12/18 18:30 Ur Leukocyte Esterase LARGE (NEGATIVE) H 06/12/18 18:30 Urine RBC 10-25 /hpf (0-5) H 06/12/18 18:30 Urine WBC 25-50 /hpf (0-5) H 06/12/18 18:30 Ur Epithelial Cells MODERATE /lpf (FEW) 06/12/18 18:30 Urine Bacteria MANY /hpf (NONE SEEN) H 06/12/18 18:30 Stool Occult Blood POSITIVE (NEGATIVE) H 06/12/18 19:12 Valproic Acid 30.7 ug/mL (50.0-100.0) L 06/12/18 18:05 Levetiracetam 12.7 ug/mL (10.0-40.0) 06/12/18 18:00 - Physical Exam Vitals and I&O: Vital Signs Temp 97.2 F 06/18/18 09:53 Pulse 100 06/18/18 09:53 Resp 22 06/18/18 09:53 BP 109/59 06/18/18 09:53 Pulse Ox 94 06/18/18 09:53 Intake & Output 06/17/18 06/18/18 06/18/18 18:59 06:59 18:59 Intake Total 200 1000 Balance 200 1000 Weight (lbs) 76.204 kg 76.204 kg Intake: Intake, IV Amount 200 200 Meropenem 500 mg In 200 200 Sodium Chloride 0.9% 100 ml @ 100 mls/hr IV Q8H [facility] Rx#:[id number] Tube Feeding 600 Other 200 Other: # Voids 3 2 # Bowel Movements 2 Stool Characteristics Soft Brown Black Weight Source Bedscale Bedscale Active Medications: Current Medications Acetaminophen (Tylenol) 650 mg PO Q4HR PRN PRN Reason: Pain Or Fever above 101 Stop: 08/12/18 00:56 Last Admin: 06/14/18 16:16 Dose: 650 mg Artificial Tears (Lubrifresh Ophth Oint) 1 appl EACH EYE BID MIGUE Stop: 08/12/18 08:59 Last Admin: 06/18/18 08:33 Dose: 1 appl Ascorbic Acid (Vitamin C) 500 mg GT BID MIGUE Stop: 08/12/18 08:59 Last Admin: 06/18/18 08:33 Dose: 500 mg Aspirin (Aspirin Chewable) 81 mg GT DAILY MIGUE Stop: 08/12/18 08:59 Last Admin: 06/18/18 08:33 Dose: 81 mg [place] Oil/[place] Balsam/Trypsin (Venelex) 1 appl TP DAILY MIGUE Stop: 08/15/18 08:59 Last Admin: 06/18/18 08:37 Dose: 1 appl Donepezil HCl (Aricept) 10 mg GT HS MIGUE Stop: 08/12/18 20:59 Last Admin: 06/17/18 21:05 Dose: 10 mg Meropenem 500 mg/ Sodium (Chloride) 100 mls @ 100 mls/hr IV Q8H MIGUE Stop: 08/12/18 12:59 Last Admin: 06/18/18 13:39 Dose: 100 mls/hr Levetiracetam (Keppra) 500 mg GT Q12HR MIGUE Stop: 08/12/18 08:59 Last Admin: 06/18/18 08:33 Dose: 500 mg Memantine (Namenda) 5 mg GT DAILY MIGUE Stop: 08/12/18 08:59 Last Admin: 06/18/18 08:33 Dose: 5 mg Nystatin (Nystop) 100,000 units TP BID MIGUE Stop: 08/12/18 08:59 Last Admin: 06/18/18 08:37 Dose: 100,000 units Ondansetron HCl (Zofran) 4 mg IV Q6H PRN PRN Reason: Nausea / Vomiting Stop: 08/12/18 00:57 Last Admin: 06/13/18 11:56 Dose: 4 mg Valproate Sodium (Depakene) 250 mg GT Q12HR MIGUE Stop: 08/12/18 08:59 Last Admin: 06/18/18 08:33 Dose: 250 mg General: no acute distress, well developed, well nourished HEENT: atraumatic, normocephalic, PERRLA Neck: supple, no thyromegaly Cardiovascular: S1S2, regular Lungs: clear to auscultation bilaterally, clear to percussion Abdomen: soft, no tender, no distended Extremities: no cyanosis, no clubbing, no edema Neurological: awake, alert, oriented - Procedures Procedures: Procedures Procedure Code Date DRAINAGE OF SKIN ABSCESS 06263 10/09/14 EXCISION OF STOMACH, PYLORUS, ENDO, DIAGN [id number] 05/13/18 OTHER SKIN & SUBQ I D 86.04 10/09/14 Infectious Disease Assmt/Plan - Problem List Patient Problems: All Active Problems TARRY STOOLS (Acute) - Assessment Assessment: 1. Urinary tract infection, likely ESBL producing organism as the patient has history of ESBL positive Proteus organism infection in the past. 2. Hydronephrosis, right side. 3. May have neurogenic bladder. 4. Cerebrovascular accident. 5. Dementia. 6. History of peptic ulcer disease. 7. Hyperlipidemia. - Plan Plan: continue meropenem. Follow up culture report and go from there. may change meropenem to invanz 1G iv daily for 10 days ( end date 06/23/3018) Nutritional Asmnt/Malnutr-PDOC - Dietary Evaluation Malnutrition Findings (Please click <Entered> for more info): Nutritional Asmnt/Malnutrition Start: 06/13/18 11: 18 Text: Status: Complete Freq: Protocol: Document 06/13/18 11:20 MMULHERN (Rec: 06/13/18 11:36 MMULHERN QUINTIN- FNS1) Nutritional Asmnt/Malnutrition Patient General Information Nutritional Screening High Risk Diagnosis Pyelonephritis Pertinent Medical Hx/Surgical Hx Ulcer sacral, dry eye syndrome , contracture of muscle lower leg, cellulitis of abdominal wall, pressure ulcer, basal cell carcinoma Subjective Information Per nursing notes, tolerating tbe feednig well with no residuals. Current tube feeding regimen provides 1000 ml/day, 1200 kcal, 55gm protein, 807ml free water ( 1407 ml with FWF). Current Diet Order/ Nutrition Support Jevity 1.2 @ 50 ml/hr x 20 hours, (on 2pm off 10am) FWF 200ml q 8hrs Patient / S.O Not Indicated Pertinent Medications vitamin C, zofran Pertinent Labs (06/12) Albumin 3.3 Nutritional Hx/Data Height 1.63 m Height (Calculated Centimeters) 162.6 Current Weight (lbs) 61.689 kg Weight (Calculated Kilograms) 61.7 Weight (Calculated Grams) 99160.6 [place] Body Weight 120 % [place] Body Weight 113 Body Mass Index (BMI) 23.3 Recent Weight Change No Weight Status Approriate GI Symptoms GI Symptoms None Last BM None noted in EMR since admission Difficult in: Chewing Swallowing Food Allergies No Cultural/Ethnic/Hinduism Belief none indicated Usual diet at home Fibersource at 50 ml/hr x 20 hours (Equivalent to Jevity 1. 2) Skin Integrity/Comment: Caleb Carranza Estimated Nutritional Goals BEE in Kcals: Using Current wt Calories/Kcals/Kg 61.8 kg CBW 25-30 kcal/kg Kcals Calculated ~8219-2362 kcal/day Protein: Using Current wt Protein g/kgm/kg Protein Calculated ~60 gm/day Fluid: ml ~6580-1764 ml/day (1 ml/kcal) Nutritional Problem 1. Problem Problem Inadequate enteral infusion related to Etiology low TF rate aeb Signs/Symptoms: meeting ~75 of calorie and ~90 % protein goals Intervention/Recommendation Comments 1. Consider increasing Tube feeding Jevity 1.2 to 50ml/hr continuously (x 24 hours) to better meet nutrient needs. Expected Outcomes/Goals Expected Outcomes/Goals Tolerates tube feeding at goal rate to meet 100% of nutrient needs, weight stable, labs WNL F/U MR 06/16-
== END 2018-06-18 16:55 | DRG 872 ==
LOC: ER 17:41 → MSI 20:46 → TELE 06-13 12:54
PROVIDERS: ADMIT Family Medicine; ATTEND Family Medicine
DX: A41.9 Sepsis, unspecified organism (principal); K92.2 Gastrointestinal hemorrhage, unspecified; N13.6 Pyonephrosis; F03.90 Unspecified dementia, unspecified severity, without behavioral disturbance, psychotic disturbance, mood disturbance, and anxiety; E78.5 Hyperlipidemia, unspecified; K21.9 Gastro-esophageal reflux disease without esophagitis; G40.909 Epilepsy, unspecified, not intractable, without status epilepticus; R13.10 Dysphagia, unspecified; K82.8 Other specified diseases of gallbladder; I69.30 Unspecified sequelae of cerebral infarction; N31.9 Neuromuscular dysfunction of bladder, unspecified
CPT/HCPCS: 36415-UA; 71045-TC; 76770-TC; 80048-TC; 80053-TC; 80061-TC; 80164-TC; 80299-90; 81001-TC; 82270-TC; 84443-TC; 84484-TC; 85007-TC; 85025-TC; 85610-TC; 85730-TC; 87086-90; 93005; J0696; J2185; J2405; J7030; J7040; Z7610